=== PATIENT | male | born 1995 | race Caucasian/White ===

== ENCOUNTER 2025-03-12 15:34 | Inpatient (IN) | payer BC, SELFPAY ==
[2025-03-12] VITALS (15 sets, daily range): BP systolic 94–131; BP diastolic 64–88; PULSE 71–112; RESP 11–24; TEMP 36.1–36.6; O2SAT 93–100; BMI 29.1
--- NOTE | 2025-03-12 15:42 | RAD_ITS ---
EXAM: XR Right Foot, 2 Views CLINICAL INDICATION: LACERATION TECHNIQUE: Frontal and lateral views of the right foot. COMPARISON: No relevant prior studies available. FINDINGS: BONES/JOINTS: Probable comminuted fracture and laceration of the 1st distal phalanx. Soft tissue swelling. No dislocation. SOFT TISSUES: No radiopaque foreign body. RAD/Foot 2 Views IMPRESSION: 1. No radiopaque foreign body. 2. Probable comminuted fracture and laceration of the 1st distal phalanx. Sof t tissue swelling. Reading Location: [id number]
[2025-03-12] MEDS: Diphth,Pertuss(Acell),Tet Vac 0.5 ML Vial IM (15:45)
[2025-03-12] MEDS: Ondansetron 4 MG/2 ML Vial IV (15:50)
[2025-03-12] MEDS: Morphine 4 MG/ML Syringe IV (15:50)
--- NOTE | 2025-03-12 15:52 | ED.VIS.LOWEX ---
HPI <DIANA Nieto - Last Filed: 03/12/25 19:13> History of Present Illness Chief Complaint: Laceration Narrative Narrative: Patient presents today with a laceration to his right foot that he sustained this afternoon while mowing the lawn. He reports that he slipped and his foot went underneath the lawnmower getting caught on the blade. He was wearing tennis shoes. He is unsure of his last tetanus update. He is not on any blood thinners. He denies any other injury. PFSH <DIANA Nieto - Last Filed: 03/12/25 19:13> PFSH Medical History Bicuspid aortic valve High blood cholesterol Medical History no medical history Home Medications ?Medication ?Instructions ?Recorded ?Last Taken ?Type multivitamin (Daily Multi-Vitamin 1 tab PO DAILY supplement 03/12/25 03/12/25 History tablet) omega 7-dnv-bni-fish oil 1,200 mg 2 cap PO DAILY supplement 03/12/25 03/11/25 History (144 mg-216 mg) capsule (Fish Oil) sumatriptan succinate 50 mg tablet 50 mg PO PRN PRN migraine headache 03/12/25 Unknown History Allergy/AdvReac Type Severity Reaction Status Date / Time No Known Allergies Allergy Verified 03/12/25 15:38 Family History no significant family his Surgical History no surgical history Social History Smoking Status: Never smoker ROS <DIANA Nieto - Last Filed: 03/12/25 19:13> ROS ED Constitutional Constitutional ED: Denies chills or fever(s) Cardiovascular Cardiovascular: Denies chest pain Respiratory/Chest Respiratory/Chest: Denies dyspnea Musculoskeletal Musculoskeletal: Reports arthralgias Integumentary Reports laceration Neurologic Neurologic: Denies paresthesias EXAM <DIANA Nieto - Last Filed: 03/12/25 19:13> Physical Exam Const Vital Signs: 03/12/25 15:35 03/12/25 16:35 03/12/25 16:57 Temperature 97.9 F Temperature Source Temporal Pulse Rate 112 H 71 79 Respiratory Rate 24 H 11 L 19 H Respiratory Pattern Blood Pressure 94/64 113/84 H Blood Pressure Mean 74 93 Blood Pressure Source Blood Pressure Position Blood Pressure Location Baseline BP Pulse Ox 98 100 100 Oxygen Delivery Method Room Air Room Air Room Air 03/12/25 17:00 03/12/25 18:00 03/12/25 18:10 Temperature 97.9 F Temperature Source Pulse Rate 82 92 92 Respiratory Rate 18 14 14 Respiratory Pattern Blood Pressure 108/83 H 100/85 H 100/85 H Blood Pressure Mean 91 90 90 Blood Pressure Source Blood Pressure Position Blood Pressure Location Baseline BP Pulse Ox 100 99 99 Oxygen Delivery Method Room Air Room Air 03/12/25 20:22 03/12/25 21:00 03/12/25 21:03 Temperature 97.9 F 97 F L 97 F L Temperature Source Temporal Pulse Rate 92 101 H 112 H Respiratory Rate 14 16 16 Respiratory Pattern Normal Blood Pressure 100/85 H 117/77 117/77 Blood Pressure Mean 90 Blood Pressure Source Monitor Blood Pressure Position Semi-Fowlers Blood Pressure Location Left Arm Baseline BP 100/85 Pulse Ox 99 97 96 Oxygen Delivery Method Room Air 03/12/25 21:05 03/12/25 21:10 03/12/25 21:15 Temperature Temperature Source Pulse Rate 112 H 108 H 104 H Respiratory Rate 16 16 16 Respiratory Pattern Blood Pressure 127/72 H 126/80 H 131/85 H Blood Pressure Mean 90 95 100 Blood Pressure Source Monitor Monitor Monitor Blood Pressure Position Semi-Fowlers Semi-Fowlers Semi-Fowlers Blood Pressure Location Left Arm Left Arm Left Arm Baseline BP 100/85 100/85 100/85 Pulse Ox 94 95 93 Oxygen Delivery Method Room Air Room Air Room Air Positive well nourished, well developed and no apparent distress General Appearance ED: well developed HEENT Reports normocephalic and head/scalp atraumatic Mouth ED: Yes moist mucous membranes normal Eyes PERRL and EOMs intact bilaterally Neck full ROM and supple Chest Wall inspection of chest normal Resp normal respiratory effort and clear to auscultation bilaterally Cardio regular rate and regular rhythm Back/Spine normal ROM and normal to inspection Extremity Extremity Narrative: Large full-thickness complex laceration extending from the plantar aspect of the left big toe through the webspace between the 1st and 2nd toes. Complete flexor tendon laceration. He does have intact cap refill and sensation. Minimal active bleeding. Neuro oriented x3, CN's II-XII intact bilaterally, moves all extremities, no focal motor deficits and no sensory deficits noted Sensorium / Orientation: awake and alert Psych mental status grossly normal and thought process normal Skin no rashes or lesions noted and no wounds <Dr. Monroe Polk DO - Last Filed: 03/13/25 00:39> Physical Exam Const Vital Signs: 03/12/25 15:35 03/12/25 16:35 03/12/25 16:57 Temperature 97.9 F Temperature Source Temporal Pulse Rate 112 H 71 79 Respiratory Rate 24 H 11 L 19 H Respiratory Pattern Blood Pressure 94/64 113/84 H Blood Pressure Mean 74 93 Blood Pressure Source Blood Pressure Position Blood Pressure Location Baseline BP Pulse Ox 98 100 100 Oxygen Delivery Method Room Air Room Air Room Air 03/12/25 17:00 03/12/25 18:00 03/12/25 18:10 Temperature 97.9 F Temperature Source Pulse Rate 82 92 92 Respiratory Rate 18 14 14 Respiratory Pattern Blood Pressure 108/83 H 100/85 H 100/85 H Blood Pressure Mean 91 90 90 Blood Pressure Source Blood Pressure Position Blood Pressure Location Baseline BP Pulse Ox 100 99 99 Oxygen Delivery Method Room Air Room Air 03/12/25 20:22 03/12/25 21:00 03/12/25 21:03 Temperature 97.9 F 97 F L 97 F L Temperature Source Temporal Pulse Rate 92 101 H 112 H Respiratory Rate 14 16 16 Respiratory Pattern Normal Blood Pressure 100/85 H 117/77 117/77 Blood Pressure Mean 90 Blood Pressure Source Monitor Blood Pressure Position Semi-Fowlers Blood Pressure Location Left Arm Baseline BP 100/85 Pulse Ox 99 97 96 Oxygen Delivery Method Room Air 03/12/25 21:05 03/12/25 21:10 03/12/25 21:15 Temperature Temperature Source Pulse Rate 112 H 108 H 104 H Respiratory Rate 16 16 16 Respiratory Pattern Blood Pressure 127/72 H 126/80 H 131/85 H Blood Pressure Mean 90 95 100 Blood Pressure Source Monitor Monitor Monitor Blood Pressure Position Semi-Fowlers Semi-Fowlers Semi-Fowlers Blood Pressure Location Left Arm Left Arm Left Arm Baseline BP 100/85 100/85 100/85 Pulse Ox 94 95 93 Oxygen Delivery Method Room Air Room Air Room Air MDM <Olga Johnson PA - Last Filed: 03/12/25 19:13> MDM MDM Narrative Medical decision making narrative: Patient presenting today with extensive laceration to his right first toe after slipping while mowing the lawn and getting his foot caught in the lawnmower. He has extensive laceration to the plantar aspect of his right big toe that extends between the 1st and 2nd webspace. He appears to have a complete flexor tendon laceration. X-ray obtained and shows a comminuted fracture of the proximal and distal phalanges. He was given Ancef here as well as IV fluids, Zofran, and morphine for pain. Tetanus updated. Podiatry was consulted, they recommend surgical intervention emergently as he has a high risk of needing the toe amputated in the future. Patient is agreeable with surgery and will be taken to the OR in stable condition. Lab Data Attestation: I reviewed the patient's lab results. Labs: Laboratory Results - last 24 hr 03/12/25 15:52 WBC 9.8 RBC 4.94 Hgb 15.2 Hct 43.3 MCV 87.7 MCH 30.8 MCHC 35.1 RDW Std Deviation 39.6 RDW Coeff of Dinh 12.4 Plt Count 272 MPV 9.7 Immature Gran % (Auto) 0.200 Neut % (Auto) 40.0 L Lymph % (Auto) 50.4 H [place] % (Auto) 7.7 Eos % (Auto) 1.2 Baso % (Auto) 0.5 Absolute Neuts (auto) 3.9 Absolute Lymphs (auto) 4.95 H Nucleated RBC % 0 Sodium 139 Potassium 3.9 Chloride 101 Carbon Dioxide 19.9 L Anion Gap 18 H BUN 16 Creatinine 1.21 H Estim Creat Clear Calc 108.03 Est GFR (MDRD) Non-Af 83 BUN/Creatinine Ratio 13.6 Glucose 102 H Calcium 9.8 Radiography X-Ray: Read by ED Physician Diagnostic Testing: Clinical Impression(s) from Imaging Studies Foot X-Ray 03/12/25 15:42 IMPRESSION: 1. No radiopaque foreign body. 2. Probable comminuted fracture and laceration of the 1st distal phalanx. Soft tissue swelling. Reading Location: [facility] <Dr. Monroe Polk, DO - Last Filed: 03/13/25 00:39> [facility] Lab Data Labs: Laboratory Results - last 24 hr 03/12/25 15:52 WBC 9.8 RBC 4.94 Hgb 15.2 Hct 43.3 MCV 87.7 MCH 30.8 MCHC 35.1 RDW Std Deviation 39.6 RDW Coeff of Dinh 12.4 Plt Count 272 MPV 9.7 Immature Gran % (Auto) 0.200 Neut % (Auto) 40.0 L Lymph % (Auto) 50.4 H [place] % (Auto) 7.7 Eos % (Auto) 1.2 Baso % (Auto) 0.5 Absolute Neuts (auto) 3.9 Absolute Lymphs (auto) 4.95 H Nucleated RBC % 0 Sodium 139 Potassium 3.9 Chloride 101 Carbon Dioxide 19.9 L Anion Gap 18 H BUN 16 Creatinine 1.21 H Estim Creat Clear Calc 108.03 Est GFR (MDRD) Non-Af 83 BUN/Creatinine Ratio 13.6 Glucose 102 H Calcium 9.8 Radiography Diagnostic Testing: Clinical Impression(s) from Imaging Studies Foot X-Ray 03/12/25 15:42 IMPRESSION: 1. No radiopaque foreign body. 2. Probable comminuted fracture and laceration of the 1st distal phalanx. Soft tissue swelling. Reading Location: [id number] Treatment and Re-Evaluation Narrative: I have personally performed a face to face assessment of the patient and have reviewed the TIM Note. I performed a substantive portion of the visit including all aspects of the following. My rodriguez findings include: History: Patient presents with injury to his right foot and great toe that occurred today. Patient slipped and fell and cut his toe on a lawnmower blade. Patient states the lawnmower blade cut through his shoe and into his foot. Patient is unsure of his last tetanus. Patient denies any paresthesias or weakness. Exam: There is a large open wound over the plantar aspect of the right great toe extending into the webspace of the 1st and 2nd digits. There is mild bleeding. The condyle of the first metatarsal is visible. The phalanges are dislocated dorsally. Sensation is intact to light touch in all digits. Capillary refill was less than 2 seconds in all digits. Medical Decision Making: Differential diagnosis includes open fracture, dislocation, tendon laceration, and laceration. X-rays of the right foot will be obtained to assess for fracture and dislocation. CBC will be obtained to assess for leukocytosis and anemia. Basic metabolic profile will be obtained to assess for electrolyte abnormality and renal function. Patient was given a tetanus booster. Patient was given Ancef. Patient was given morphine and Zofran. X-rays of the right foot were obtained. There are 2 views. On my independent interpretation, there is an open fracture of the distal and proximal phalanges of the right great toe. There is also questionable fracture of the dorsal aspect of the distal portion of the first metatarsal. Case was discussed with Dr. Javier from podiatry. He will take the patient to the operating room. Patient understood and was agreeable with the plan. All questions were answered. Discharge Plan Dx/Rx/DC Orders Clinical Impression: Laceration of right foot, Traumatic dislocation of right great toe, Laceration of muscle and tendon of long flexor muscle of toe at ankle and foot level, right foot, initial encounter Disposition Disposition: Acute Care Hospital [facility] Discharge Date/Time: 03/12/25 18:15
[2025-03-12] MEDS: Cefazolin 2 GM in 0.9% Normal Saline (100mL Bag) 100 ML IV ×2 (15:56→22:29)
[2025-03-12 16:08] LABS: Absolute Lymphocyte Count 4.95 X10^3/uL (0.83-4.51); Absolute Neutrophil Count 3.9 X10^3/uL (2.0-7.7); Basophil# 0.05 X10^3/uL; Basophil% 0.5 % (0-1); Eosinophil# 0.12 X10^3/uL; Eosinophils% 1.2 % (0-5); Hematocrit 43.3 % (40-54); Hemoglobin 15.2 g/dL (13.0-16.5); Lymphocyte # 4.95 X10^3/ul (0.83-4.51); Lymphocyte % 50.4 % (19-41); Mean Corp Hgb Conc 35.1 g/dL (32-36); Mean Corpuscular Hgb 30.8 pg (27.0-32.0); Mean Corpuscular Volume 87.7 fL (80-94); Mean Platelet Vol. 9.7 fl (6.2-12.0); Monocyte# 0.76 X10^3/uL; Monocyte% 7.7 % (0-10); NRBC Flagged by Analyzer 0 % (0-5); Neutrophil # 3.93 X10^3/uL (2.7-7.7); Platelet Count 272 K/mm3 (150-450); RBC Distribution Width CV 12.4 % (11.6-14.6); RBC Distribution Width SD 39.6 fl (35.1-43.9); Red Blood Count 4.94 M/mm3 (4.6-6.2); White Blood Count 9.8 K/mm3 (4.4-11.0)
[2025-03-12 16:13] LABS: Anion Gap 18 (5-15); BUN 16 mg/dL (4-19); BUN/Creat Ratio 13.6 RATIO (10-20); Calcium,Total 9.8 mg/dL (7.6-11.0); Carbon Dioxide 19.9 mmol/L (21.0-32.0); Chloride 101 mmol/L (98-108); Creatinine, Serum 1.21 mg/dL (0.70-1.20); EST Glomerular Filtration Rate 83 (>60); Estimated Creatinine Clearance 108.03 ml/min (50-250); Glucose 102 mg/dL (70-99); Potassium 3.9 mmol/L (3.3-5.1); Sodium Level 139 mmol/L (133-145)
[2025-03-12] MEDS: Morphine 2 MG/ML Syringe IV (16:51)
[2025-03-12] MEDS: 0.9% Normal Saline (1000mL) 1,000 ML 999 ML IV (16:51)
--- NOTE | 2025-03-12 18:00 | RAD_ITS ---
PROCEDURE: FOOT 2 VIEWS 03/12/2025 REASON FOR EXAM: LACERATION REPAIR, POSSIBLE AMPUTATION TECHNIQUE: 2 fluoroscopic views of the right foot are obtained. Fluoro time of 3 minutes and 41 seconds. COMPARISON: Right foot radiograph from 03/12/2025. FINDINGS: There are postsurgical changes with surgical wires extending through the 1st digit stabilizing the comminuted 1st distal phalanx fracture. RAD/Foot 2 Views IMPRESSION: As above. Reading Location: [facility]
--- NOTE | 2025-03-12 18:05 | CON.PCM_ITS ---
Assessment & Plan Assessment/Plan (1) Laceration of right foot: QUALIFIERS: Encounter type: initial encounter Qualified Code(s): S91.311A - Laceration without foreign body, right foot, initial encounter PLAN: Patient was examined evaluated. All findings were discussed with the patient. All questions were answered to the patient satisfaction. Right foot radiograph: Review of the radiographs show evidence of a dislocated first metatarsal phalangeal joint of the right foot with evidence of some comminution appreciated to the proximal phalanx and distal phalanx. Increase in soft tissue volume without defect. No emphysema appreciated. Long discussion emergency room regarding surgical intervention at this time with repair of the lacerated tendon as well as close reduction and pinning of the dislocated first metatarsal phalangeal joint of the right foot and advancement flap closure. Patient was agreeable and we will move forward with emergency surgery today. All risk and benefits were discussed with the patient and his in great detail. It was also discussed with the patient that he is at risk for a amputation if the skin and underlying soft tissue demarcates and is not viable over the next upcoming days which she was understanding of. After surgery he will be admitted for approximately 48 hours and then discharge and will follow-up in private office for additional surgery as needed. Tetanus status was updated in the emergency room. Medicine: Consult pending Podiatry will follow patient as primary while in house and will discharge in approximately 24 to 48 hours. Please reach out to Dr. Javier with any questions or concerns. (2) Traumatic dislocation of right great toe: QUALIFIERS: Encounter type: initial encounter Qualified Code(s): S93.104A - Unspecified dislocation of right toe(s), initial encounter (3) Laceration of muscle and tendon of long flexor muscle of toe at ankle and foot level, right foot, initial encounter: HPI Consult Data Date of Consult: 03/12/25 HPI Narrative Reason for Consultation: Open laceration, right foot HPI Narrative: JAKOB MORRELL, is a 29 M who presented presented to the [facility] emergency room approximately 2 hours ago with open laceration to the right foot with dislocation of the the first metatarsal phalangeal joint. Patient sustained an injury due to coming in contact with a moving lawnmower. He was cutting his mom's grass and his foot went underneath the lawnmower getting caught on the blade. He was wearing tennis shoes. He is unsure if he slipped or fell and stated that it happened so fast, he then ended up with a laceration presenting to the emergency room for evaluation. Overall the patient is healthy. He does have high cholesterol and a bicuspid aortic valve. His tetanus status was updated during the emergency room initial consultation. He denies any additional trauma. Denies constitutional symptoms. No other pedal complaints at this time. [facility] Medical History Bicuspid aortic valve High blood cholesterol Medical History no medical history Home Medications ?Medication ?Instructions ?Recorded ?Last Taken ?Type multivitamin (Daily Multi-Vitamin 1 tab PO DAILY suppl ement 03/12/25 03/12/25 History tablet) omega 0-vni-uwr-fish oil 1,200 mg 2 cap PO DAILY suppl ement 03/12/25 03/11/25 History (144 mg-216 mg) capsule (Fish Oil) sumatriptan succinate 50 mg tablet 50 mg PO PRN PRN mi graine headache 03/12/25 Unknown History Allergy/AdvReac Type Severity Reaction Status Date / Time No Known Allergies Allergy Verified 03/12/25 15:38 Family History no significant family his Surgical History no surgical history Social History Smoking Status: Never smoker Physical Exam Narrative Vascular: DP and PT pulses are palpable to the right lower extremity. CFT is brisk to the right hallux and lesser digits. Skin temp great is warm to warm from proximal ankle to distal digits on the right lower extremity. Neurological: Light touch intact. Patient does despond painful stimuli. Dermatological: Large laceration at the plantar aspect of the first metatarsophalangeal joint with sanguinous drainage and exposed first metatarsal head. No malodor is appreciated. Evidence of mild debris is present. Musculoskeletal: Mild to moderate palpatory tenderness appreciated a full- thickness laceration to the right foot. Active and passive range of motion lesser digits pain-free. Attempted to palpate the hallux is painful. No pain with calf pressure. Const alert, oriented x3 and no apparent distress General Appearance: cooperative, comfortable and well kempt Orientation / Consciousness: awake Lab / Micro Data 03/12/25 15:52 03/12/25 15:52 Labs: Laboratory Results - last 24 hr 03/12/25 15:52: WBC 9.8, RBC 4.94, Hgb 15.2, Hct 43.3, MCV 87.7, MCH 30.8, MCHC 35.1, RDW Std Deviation 39.6, RDW Coeff of Dinh 12.4, Plt Count 272, MPV 9.7, Immature Gran % (Auto) 0.200, Neut % (Auto) 40.0 L, Lymph % (Auto) 50.4 H, [place] % (Auto) 7.7, Eos % (Auto) 1.2, Baso % (Auto) 0.5, Absolute Neuts (auto) 3.9, A bsolute Lymphs (auto) 4.95 H, Nucleated RBC % 0, Sodium 139, Potassium 3.9, Chloride 101, Carbon Dioxide 19.9 L, Anion Gap 18 H, BUN 16, Creatinine 1.21 H, Estim Creat Clear Calc 108.03, Est GFR (MDRD) Non-Af 83, BUN/Creatinine Ratio 13.6, Glucose 102 H, Calcium 9.8 Imaging Radiology Impression Foot X-Ray 03/12/25 15:42 IMPRESSION: 1. No radiopaque foreign body. 2. Probable comminuted fracture and laceration of the 1st distal phalanx. Soft tissue swelling. Reading Location: [id number]
--- NOTE | 2025-03-12 18:05 | PCM.OPRPT ---
Problems Associated Problem List Diagnoses (1) Onycholysis: (2) Fracture of distal phalanx of toe of right foot: (3) Laceration of muscle and tendon of long flexor muscle of toe at ankle and foot level, right foot, initial encounter: (4) Traumatic dislocation of right great toe: (5) Laceration of right foot: Operative Report (Standard) Operative Information Date of Procedure: 03/12/25 Pre-Operative Diagnosis: 1. Open laceration, right foot 2. Lacerated flexor tendon, right foot 3. Onycholysis, right hallux 4. Traumatic dislocation of toe, right foot 5. Distal phalanx fracture, right hallux Post-Operative Diagnosis: Same as preoperative diagnosis Surgery/Procedure Performed: Procedure #1: Nail avulsion, right hallux Procedure #2: Repair of lacerated tendon, flexor hallucis longus, right foot Procedure #3: Closed reduction and pinning of dislocated first metatarsophalangeal joint, right foot Procedure #4: Percutaneous pinning of avulsion fracture, distal phalanx, right hallux Procedure #5: Advancement flap closure, right foot well surveying engineer: No Type of Anesthesia: General and Local RN Documented Start/Stop Times: Operation Date: 03/12/25 18:15 Case Time Anesthesia Start 03/12/25 18:27 Into Room 03/12/25 18:27 Procedure Start 03/12/25 18:55 Procedure End 03/12/25 20:50 Anesthesia End 03/12/25 20:58 Out of Room 03/12/25 20:58 Into Recovery 03/12/25 21:00 Procedure Start Time: 18:55 Procedure Stop Time: 20:50 Select all DRAINS/GRAFTS/IMPLANTS that apply: None Special Medications: Per anesthesia Estimated Blood Loss: 30 mL Fluids Replaced: Per anesthesia Specimen collected: No Description of surgery: Indications For Operation: Mr. Harvey is a 29-year-old male who was admitted to [facility] for open laceration secondary to a lawnmower injury today at approximately 3:30 PM in the afternoon on 03/12/2025. When the patient sustained injury he reported to [facility] for evaluation and treatment. I was consulted for concern of lacerated tendon as well as for the large open laceration exposing the first metatarsal head on the right foot. Upon interviewing the patient there showed evidence of a large traumatic laceration with exposed first metatarsal phalangeal joint as well as debris in the wound. Due to the nature of the wound I educated the patient on washout and pinning as well as amputation. Patient would like to move forward with pinning and trying to save the toe especially because he is concerned how his walking/gait and may be disrupted if he loses the toe. He is aware that even with successful surgery of getting the toe back into anatomic position with the joint he still may lose the toe due to decreased blood flow. All risk and benefits were discussed with the patient and his in great detail. We move forward with the above procedure as discussed. Due to open laceration and dislocation of the first metatarsophalangeal joint the right foot it was deemed necessary at this time to take patient the operating room the performed above procedure to help get his toe back into anatomic position and pin it and help relieve his constant pain and save his toe. The nature of the problem, anticipated procedures, postop recovery/convalences and risk/complications include but not limited to infection, wound healing complications, digital amputation, hypertrophic scarring, numbness, tingling, chronic pain, CRPS, over and under correction, recurrence of deformity, DVT and or PE and the need for further surgery have been discussed in great detail with the patient. All questions have been answered to the patient's satisfaction. There are no guarantees given as to the outcome of the procedure. Description of Procedure: Under mild sedation, the patient was brought into the operating room and placed on the operating table in supine position. Once the patient was under general anesthesia with endotracheal tube, the right lower extremity was blocked using approximately 30 cc 0.5% Marcaine plain. No tourniquet was used for this case. Next, the right lower extremity was prepped and draped in normal aseptic manner. Next, a timeout was then undertaken verifying the correct patient, extremity, visibility of preoperative markings, availability of the equipment. Procedure #1: Nail avulsion, right hallux Next attention was directed to the right hallux that showed evidence of subungual hematoma and onycholysis. Using a rongeur the nail avulsion was performed without incident and the nail was discarded. There is evidence of healthy granular tissue to the nailbed with no significant sign of concern for infection. Procedure #2: Repair of lacerated tendon, flexor hallucis longus, right foot Next, attention was directed to the full-thickness laceration exposing the first metatarsal head. Using a rongeur excessive debridement down to bone was performed removing all devitalized tissue as well as bone fragments from the traumatic injury with the lawnmower blade. There showed evidence of some bone destruction to the head of the first metatarsal which was dorsally and removed due to viability. Bone fragments from the proximal phalanx were identified and also removed. All debris such as dirt and grass were removed without incident. After debridement was performed there showed healthy granular tissue. Next, pulse lavage and irrigation was performed using warm 3000 mL of saline. After pulse lavage tissue was granular in nature and there was no concern for infection. Next, attention was directed to the level of the long flexor laceration in the plantar vault of the right foot, inferior aspect of the dislocated hallux. Due to the traumatic injury with a lawnmower there was destruction of the origin of the flexor hallucis longus tendon. The proximal portion of the tendon had retracted but was identified and pulled to length using 2-0 Vicryl suture and secured in place approximately 1 cm from its attachment. Using 2-0 Ethibond the long flexor tendon was sutured to the soft tissue and show to have plantarflexed the attitude once secured in place. The toe was put through a range of motion and dorsiflexion and plantarflexion attitude allowed the first metatarsophalangeal joint to remain in neutral at this time. Next, the incision was flushed with cold renata normal saline. Procedure #3: Closed reduction and pinning of dislocated first metatarsophalangeal joint, right foot Next, the right hallux gently distracted and closed reduction with percutaneous pinning using x2 K wires was done without incident. After the K wires were secured across the first metatarsophalangeal joint. The position of the K wires were checked clinically as well as with mini C-arm fluoroscopy. The long ends were cut bent at 90 degrees and secured with half-inch Steri-Strips to act as a external splint. There was no range of motion ability due to the pinning of the K wires across the big toe joint at this time. Procedure #4: Percutaneous pinning of avulsion fracture, distal phalanx, right hallux Next using a small K wire percutaneous pinning of the avulsion fracture of the distal phalanx was performed using mini C arm fluoroscopy guidance in the AP and lateral view. The K wire was thrown from proximal medial to distal lateral encompassing the avulsion fracture off the medial side of the distal phalanx. The K wire once out to length was cut and bent at 90 degrees and secured with the 2 additional K wires from the pinning of the first metatarsophalangeal joint. Procedure #5: Advancement flap closure, right foot Next, attention was directed to the laceration flap using some undermining of the proximal and distal tissue this allowed for more advancement flap type closure. The deep layer was reapproximated closed with 3-0 Vicryl in buried suture technique. The skin was reapproximated dorsal and plantarly and advanced closed, secured in place with 4-0 nylon in simple interrupted suture technique. The right foot was wiped clean and patted dry. There is evidence of capillary refill time less than 3 seconds to the great toe. There was evidence of some delayed cap the refill time to the most plantar distal flap of the hallux. All incisions were dressed with Betadine soaked Adaptic, dry sterile dressing and a very light posterior Wyatt splint was applied to the right lower extremity at 90 degrees. The patient tolerated the procedure and anesthesia well and apparent satisfactory condition and was transported to the PACU for further monitoring prior to admission for observation for postoperative care and flap integrity for the next 24 to 48 hours. The patient will be placed on IV antibiotics Ancef and Zosyn for the next 48 hours. Vital signs stable and vascular status intact to all digits bilateral. Post Operative Plan: Weightbearing: Nonweightbearing to the right lower extremity with assistive crutches. Full weightbearing left lower extremity. Antibiotics: IV antibiotics, Ancef and Zosyn DVT Prophylaxis: 325 mg aspirin twice daily Sanderson: None Dressing: Betadine soaked Adaptic dry sterile dressing light Wyatt posterior splint, right lower extremity X-Rays: Post-operative films taken on the operating room. Pain Medication: Percocet 5/325, Dilaudid 0.5 mg, Tylenol Follow-up: Patient will be admitted for 48-hour observation after surgery secondary to lawnmower injury. Hospitalist consulted for medical management. Physical therapy consulted for routine care. Patient was taken to the operating room and had the above procedure performed. I feel that the procedure was successful and the patient has a good outcome for keeping his right hallux. However it was discussed with the patient and his in the emergency room that it is approximately a 50-50 chance that he may need to move forward with additional surgery if the vascular status of the toe is compromised due to the injury which the patient and his are very understanding. Surgical Findings: 1. Evidence of of debris that was in the open laceration secondary to a lawnmower injury was all removed. 2. Ability to reattach the long flexor tendon to the proximity of insertion. 3. Successful advancement flap closure. 4. Evidence of capillary refill time less than 3 seconds throughout the right hallux Complications Complications: No Admit VTE Documentation VTE Present on Admission: No VTE Mechan Device Prophylaxis: SCD's VTE Pharm Prophylaxis ordered?: Yes
--- NOTE | 2025-03-12 20:21 | PCM.PRE.AN2 ---
ASA Classification* ASA Classification ASA Classification: 2 and E Assessment & Plan Anesthesia* Anesthesia Assessment Anesthesia Assessment: Discussed sedation and/or anesthesia options, risks, benefits, and alternatives with patient/parents/legal guardian/POA. Questions invited. The patient/parents/legal guardian/POA seems to understand and agrees to proceed with anesthesia plan. Reviewed the physical assessment, medical history, allergy history and patient home medications list prior to surgery/procedure/anesthetic and documented any changes. Performed airway and anesthesia risk assessments. Anesthesia Type Anesthesia Type: General (glidescope/rsi) Anesthesia Focused Assessment* Temperature: 97.9 F Pulse Rate: 92 Blood Pressure: 100/85 Respiratory Rate: 14 Pulse Ox: 99 Airway Assessment Mouth opens: >3 cm Mallampati Score: II Focused Labs Anesthesia Preop lab: CBC WBC 9.8 K/mm3 (4.4-11.0) 03/12/25 15:52 03/12/25 RBC 4.94 M/mm3 (4.6-6.2) 03/12/25 15:52 03/12/25 Hgb 15.2 g/dL (13.0-16.5) 03/12/25 15:52 03/12/25 Hct 43.3 % (40-54) 03/12/25 15:52 03/12/25 Plt Count 272 K/mm3 (150-450) 03/12/25 15:52 03/12/25 CHEMISTRY Potassium 3.9 mmol/L (3.3-5.1) 03/12/25 15:52 03/12/25 Sodium 139 mmol/L (133-145) 03/12/25 15:52 03/12/25 BUN 16 mg/dL (4-19) 03/12/25 15:52 03/12/25 Creatinine 1.21 mg/dL (0.70-1.20) H 03/12/25 15:52 03/12/25 Glucose 102 mg/dL (70-99) H 03/12/25 15:52 03/12/25 COAG Pre-Assessment Diagnosis/Proposed Procedure Planned Operative Procedure(s): Repair of laceraTION OF RIGHT GREAT TOE Anesthesia History Anesthesia History - instructor hairspring: Anesthesia History - instructor hairspring Hx Hospitalization Any Problems With Anesthesia Cholinesterase deficiency You/Your Family Experience fever (hyperthermia) with Relationship Recent Exposure to Contagious Disease Does patient have nerve stimulator Patient instructed to have device shut off --Does patient have Pacemaker or ICD? When Was Last Pacemaker Check QUESTION #4 FULL TEXT: You/Your Family Experience fever (hyperthermia) with Anesthesia Last Oral Intake Last Oral intake: Last Oral Intake NPO since Meds taken in AM with sips of water? Meds patient instructed to take am of surgery PONV PONV - instructor hairspring: PONV - instructor hairspring Female HX of Motion Sickness HX of N/V After Surgery Non-Smoker Duration of Surgery greater than 60 minutes Number of Risk Factors PONV Score Height & Weight Height & Weight: Anesthesia: Height & Weight Height 6 ft 03/12/25 15:35 Weight: 97.5 kg 03/12/25 15:38 Body Mass Index (BMI) 29.1 03/12/25 15:38 Respiratory Assessment Respiratory Assessment - instructor hairspring: Respiratory Tract Infection Hx - instructor hairspring Hx Respiratory Tract Infection STOP Sleep Apnea STOP Sleep Apnea - instructor hairspring: STOP Sleep Apnea - instructor hairspring Hx Hypertension No 08/01/15 14:23 Hx Sleep Apnea CPAP BIPAP Do you snore loudly (louder than talking or can be heard Do you often feel tired/ fatigued/ sleepy during daytime? Has anyone observed you stop breathing during sleep? STOP Results QUESTION #5 FULL TEXT : Do you snore loudly (louder than talking or can be heard through closed doors)? 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 Specify any problems Hx of Preganancy in last 3 Months Nurse Filling Out Transfusion & Questions: Date: Time: Patient unable to answer at this time (ie. confused, unrespo /Reproduction History /Reproductive History - instructor hairspring: /Reproductive Hx- instructor hairspring Hx Now Gestational Age (in weeks): EDC: Hx Hx Para Hx Section SAB PFSH Medical History Bicuspid aortic valve High blood cholesterol Medical History no medical history Home Medications ?Medication ?Instructions ?Recorded ?Last Taken ?Type multivitamin (Daily Multi-Vitamin 1 tab PO DAILY 03/12/25 03/12/25 History tablet) omega 0-btp-ihl-fish oil 1,200 mg 2 cap PO DAILY 03/12/25 03/11/25 History (144 mg-216 mg) capsule (Fish Oil) sumatriptan succinate 50 mg tablet 50 mg PO PRN PRN migraine headache 03/12/25 Unknown History Allergy/AdvReac Type Severity Reaction Status Date / Time No Known Allergies Allergy Verified 03/12/25 15:38 Family History no significant family his Surgical History no surgical history Social History Smoking Status: Never smoker Review of Systems (Anesthesia) ROS Narrative System reviewed and no additional complaints, except as documented.
[2025-03-12] MEDS: Bupivacaine Mpf 0.5% 30 ML VIAL (20:36)
--- NOTE | 2025-03-12 21:02 | PCM.POST.ANE ---
Anesthesia: Postop Eval I Current Vital Signs Temperature: 97 F Pulse Rate: 112 Blood Pressure: 117/77 Respiratory Rate: 16 Pulse Ox: 96 Assessment Airway patent: Yes Spontaneous unlabored respirations: Yes nausea: No Vomiting: No Anesthesia Complication: No Fluid Hydration Crystalloid volume administer (ml): 1,500 Total IV fluid infused: 1,500 Progress Note Anesthesia document: Postop Eval 1 completed: Yes
--- NOTE | 2025-03-12 21:03 | PCM.POSTANE2 ---
Anesthesia Postop Eval I Sum Postop Eval Completion status Anesthesia document: Postop Eval 1 completed: Yes Anesthesia Postop Eval I Summary Anesthesia Postop Eval I Summary: Anesthesia Postop Eval I: Assessment Summary Airway patent Yes 03/12/25 21:03 Spontaneous unlabored Yes 03/12/25 21:03 respirations Mental status nausea No 03/12/25 21:03 Vomiting No 03/12/25 21:03 Anesthesia Postop Eval I: Fluid Summary Crystalloid volume administer 1,500 03/12/25 21:03 (ml) Colloids volume administered ( ml) Blood Product volume administered (ml) Total IV fluid infused 1,500 03/12/25 21:03 Anesthesia Postop Eval I: Summary Notes Anesthesia Complication No 03/12/25 21:03 Anesthesia Complication Comment: Post-operative progress note Anesthesia: Postop Eval II Evaluation Mental status: Awake Pain Level: 0 nausea: No Vomiting: No
[2025-03-12] MEDS: 0.9% Saline Lock 10 ML Syringe IV (22:28)
[2025-03-12] MEDS: proCHLORPERazine 10 MG/2 ML Vial 5 MG IV (22:28)
[2025-03-12] MEDS: HYDROmorphone 0.5 MG/0.5 ML SYRINGE IV (22:29)
[2025-03-12] MEDS: 0.9% Normal Saline (250mL Bag) 250 ML 15 ML IV (22:34)
--- NOTE | 2025-03-12 22:40 | PN.HOSP_ITS ---
Reason for Visit Reason for Visit: Diagnoses Onycholysis (03/12/25) Laceration without foreign body, right foot, initial encounter (03/12/25) Unspecified fracture of right toe(s), initial encounter for closed fracture (03/12/25) Unspecified dislocation of right toe(s), initial encounter (03/12/25) Laceration of muscle and tendon of long flexor muscle of toe at ankle and foot level, right foot, initial encounter (03/12/25) Subjective Subjective 29-year-old male with past medical history of bicuspid aortic valve, high blood cholesterol and migraine headaches presented with fracture of distal phalanx of toe of the right foot that he sustained while mowing his lawn, he slipped and his foot went underneath the lawnmower getting caught on the plate,, he was wearing tennis shoes at the time. He underwent surgery today and was seen postoperatively. There is some pain over the foot, had sore throat following extubation which is better now. After recovery from anesthesia had some nausea but has improved with Zofran. Objective Data Objective Data Vital Signs: Vital Signs Temp Pulse Resp BP Pulse Ox O2 Del Method 97.7 F L 95 16 108/70 98 Room Air 03/12/25 22:12 03/12/25 22:12 03/12/25 22:12 03/12/25 22:12 03/12/25 22:12 03/12/25 22:12 Oxygen Delivery Method Room Air Weight: 214 lb 15.211 oz Body Mass Index (BMI) 29.1 Intake & Output: Intake and Output for Last 24 Hours 03/10/25 03/11/25 03/12/25 23:59 23:59 23:59 Intake Total 1000 / 1000 Balance 1000 / 1000 Lab / Micro Data Attestation: I reviewed the patient's lab results. 03/12/25 15:52 03/12/25 15:52 Labs: Laboratory Results - last 24 hr 03/12/25 15:52: WBC 9.8, RBC 4.94, Hgb 15.2, Hct 43.3, MCV 87.7, MCH 30.8, MCHC 35.1, RDW Std Deviation 39.6, RDW Coeff of Dinh 12.4, Plt Count 272, MPV 9.7, Immature Gran % (Auto) 0.200, Neut % (Auto) 40.0 L, Lymph % (Auto) 50.4 H, Toole % (Auto) 7.7, Eos % (Auto) 1.2, Baso % (Auto) 0.5, Absolute Neuts (auto) 3.9, A bsolute Lymphs (auto) 4.95 H, Nucleated RBC % 0, Sodium 139, Potassium 3.9, Chloride 101, Carbon Dioxide 19.9 L, Anion Gap 18 H, BUN 16, Creatinine 1.21 H, Estim Creat Clear Calc 108.03, Est GFR (MDRD) Non-Af 83, BUN/Creatinine Ratio 13.6, Glucose 102 H, Calcium 9.8 Radiography Diagnostic Testing: Radiology Impression Foot X-Ray 03/12/25 15:42 IMPRESSION: 1. No radiopaque foreign body. 2. Probable comminuted fracture and laceration of the 1st distal phalanx. Soft tissue swelling. Reading Location: [facility] Physical Exam Const alert and oriented x3 HEENT Mouth: oral and palatal mucosa normal Eyes PERRL Neck no lymphadenopathy Resp normal respiratory effort and no retractions Cardio regular rate and regular rhythm Cardio Narrative: Ejection systolic murmur present GI normal to inspection, nondistended, normoactive bowel sounds Extremity normal to inspection Extremity Narrative: Could not examine the right foot as it was dressed after surgery Neuro oriented x3, CN's II-XII intact bilaterally, moves all extremities and no focal motor deficits Psych affect normal Assessment & Plan Assessment/Plan (1) Laceration of muscle and tendon of long flexor muscle of toe at ankle and foot level, right foot, initial encounter: PLAN: Plan 29-year-old male with past medical history of bicuspid aortic valve, high blood cholesterol and migraine headaches presented with fracture of distal phalanx of toe of the right foot that he sustained while mowing his lawn, he slipped and his foot went underneath the lawnmower getting caught on the plate,, he was wearing tennis shoes at the time. For his laceration he underwent nail avulsion of the right hallux, repair of the lacerated tendon, flexor hallucis longus, close reduction and pinning of the dislocated first metatarsophalangeal joint, percutaneous pinning of the avulsion fracture, advancement flap closure. Postprocedure he started on cefazolin and Zosyn for prophylaxis. His WBCs from 9.8, hemoglobin 15.2, platelet count 272, sodium 139, potassium 3.9, BUN 16, creatinine 1.2, glucose 102. # Right foot laceration - Underwent surgery today - Continue Zosyn plus cefazolin to prevent any surgical site infection - If white count stable can transition to p.o. antibiotics tomorrow #Bicuspid aortic valve - Not on medications-blood pressure stable - Continue to monitor #Migraine - Only takes as needed medications - No concerns at this time - Continue to monitor #Dyslipidemia - Outpatient follow-up with primary care #DVT - Moderate risk - Start enoxaparin 40 mg subcu after considered okay for prophylactic anticoagulation by surgery team
[2025-03-12] MEDS: BENZOCAINE/MENTHOL 1 LOZENGE MUCOUS MEM (22:43)
[2025-03-12] MEDS: Piperacil/Tazobactam 3.375 GM in 0.9% Normal Saline (50mL MB+) 50 ML IV (23:36)
[2025-03-12] MEDS: Acetaminophen 325 MG Tablet 650 MG PO (23:52)
[2025-03-12] MEDS: oxyCODONE 5 MG Tablet PO (23:52)
[2025-03-13 02:18] VITALS: BP 112/51; PULSE 85; RESP 16; TEMP 36.4; O2SAT 98
[2025-03-13] MEDS: Cefazolin 2 GM in 0.9% Normal Saline (100mL Bag) 100 ML IV ×3 (05:19→21:07)
[2025-03-13 05:26] VITALS: BP 116/59; PULSE 97; RESP 16; TEMP 36.8; O2SAT 98
[2025-03-13] MEDS: oxyCODONE 5 MG Tablet PO ×3 (05:32→18:25)
[2025-03-13] MEDS: Acetaminophen 325 MG Tablet 650 MG PO ×3 (05:33→18:27)
[2025-03-13] MEDS: Piperacil/Tazobactam 3.375 GM in 0.9% Normal Saline (50mL MB+) 50 ML IV ×3 (06:38→22:18)
[2025-03-13 08:44] VITALS: BP 106/59; PULSE 98; RESP 18; TEMP 37.1; O2SAT 95
[2025-03-13] MEDS: Aspirin 325 MG Tablet PO ×2 (08:52→16:40)
[2025-03-13] MEDS: HYDROmorphone 0.5 MG/0.5 ML SYRINGE IV ×3 (10:54→20:58)
--- NOTE | 2025-03-13 11:52 | PCM.PN.SRG ---
Subjective Subjective Mr. Harvey is a 29-year-old male seen at bedside today for dressing change to right lower extremity. Patient is status post nail avulsion, repair of lacerated tendon, flexor hallucis longus, close reduction and pinning of dislocated first metatarsophalangeal joint, percutaneous pinning of avulsion fracture and advancement flap closure to the right foot. DOS: 03/12/2025. Patient doing well. He rates his pain as 5 out of 10 on the pain scale. His pain is controlled with prescribed pain medication. No acute events overnight. His nausea has improved. He denies any additional constitutional symptoms. No other pedal complaints at this time. Objective Data Objective Data Vital Signs: Vital Signs Temp Pulse Resp BP Pulse Ox O2 Del Method 98.8 F 98 18 106/59 L 95 Room Air 03/13/25 08:44 03/13/25 08:44 03/13/25 08:44 03/13/25 08:44 03/13/25 08:44 03/13/25 08:44 Oxygen Delivery Method Room Air Weight: 97.5 kg Body Mass Index (BMI) 29.1 Intake & Output: Intake and Output for Last 24 Hours 03/11/25 03/12/25 03/13/25 23:59 23:59 23:59 Intake Total 1115.75 / 1115.75 235.75 / 235.75 Output Total 300 / 300 300 / 300 Balance 815.75 / 815.75 -64.25 / -64.25 Lab / Micro Data 03/12/25 15:52 03/12/25 15:52 Labs: Laboratory Results - last 24 hr 03/12/25 15:52: WBC 9.8, RBC 4.94, Hgb 15.2, Hct 43.3, MCV 87.7, MCH 30.8, MCHC 35.1, RDW Std Deviation 39.6, RDW Coeff of Dinh 12.4, Plt Count 272, MPV 9.7, Immature Gran % (Auto) 0.200, Neut % (Auto) 40.0 L, Lymph % (Auto) 50.4 H, [place] % (Auto) 7.7, Eos % (Auto) 1.2, Baso % (Auto) 0.5, Absolute Neuts (auto) 3.9, Absolute Lymphs (auto) 4.95 H, Nucleated RBC % 0, Sodium 139, Potassium 3.9, Chloride 101, Carbon Dioxide 19.9 L, Anion Gap 18 H, BUN 16, Creatinine 1.21 H, Estim Creat Clear Calc 108.03, Est GFR (MDRD) Non-Af 83, BUN/Creatinine Ratio 13.6, Glucose 102 H, Calcium 9.8 Radiography Diagnostic Testing: Radiology Impression Foot X-Ray 03/12/25 15:42 IMPRESSION: 1. No radiopaque foreign body. 2. Probable comminuted fracture and laceration of the 1st distal phalanx. Soft tissue swelling. Reading Location: [facility] Foot X-Ray 03/12/25 18:00 IMPRESSION: As above. [facility] Physical Exam Narrative Vascular: DP PT pulses are palpable to the right lower extremity. CFT is brisk to the dorsal, medial, lateral and proximal plantar hallux and first metatarsal phalangeal joint. There is delayed capillary refill time to the plantar aspect of the right hallux with mild duskiness appreciated. Skin temperature is warm to warm from proximal ankle to distal digits. Neurological: Light touch is intact. Epicritic sensation is intact. Patient does respond to painful stimuli. Dermatological: All skin is well coapted with suture to the right hallux advancement flap area. Evidence of granular sanguinous draining tissue to the nailbed of the right hallux. No malodor. Negative probe to bone. Evidence of duskiness appreciated to the plantar aspect of the right hallux at the size of a nickel, the remaining surrounding tissue is erythematous and blanchable. No sign of infection. Musculoskeletal:. Mild pain on palpation to the incisions to the right hallux. Mild pain palpation to the nailbed of the right hallux. No pain with calf pressure. Const oriented x3 and no apparent distress Assessment & Plan Assessment/Plan (1) Laceration of right foot: QUALIFIERS: Encounter type: initial encounter Qualified Code(s): S91.311A - Laceration without foreign body, right foot, initial encounter PLAN: Patient was examined evaluated. All findings were discussed with the patient. All questions were answered the patient expected. Overall, the patient is doing well after surgery to the right lower extremity. DOS: 03/12/2025. Will continue pain medication as scheduled. The right lower extremity dressing was removed without incident. There was evidence of capillary refill time less than 3 seconds to the dorsal, medial and lateral right hallux. There is evidence of delayed capillary refill time to the plantar aspect of the hallux and size of a nickel. This is an area that will be concerning for tissue necrosis. The right lower extremity exposed pins and suture were dressed with Betadine soaked Adaptic, dry sterile dressing and a double layer Wyatt posterior splint was applied to the right lower extremity. Patient will continue to elevate 4 inches above his heart and apply ice to the posterior aspect of the right knee and anterior ankle as needed. We will continue the IV antibiotics Ancef and Zosyn as scheduled for the next 24 hours. Medicine: On board, medical management Plan will be to discharge the patient Friday morning versus afternoon. All prescriptions will be sent to the patient's pharmacy prior to discharge. Podiatry will continue to follow with primary. No plan for additional surgery at this time and the patient will follow-up as an outpatient in office for 2 times per week dressing changes and local wound care as needed. Please reach out to Dr. Javier with any questions or concerns. (2) Traumatic dislocation of right great toe: QUALIFIERS: Encounter type: initial encounter Qualified Code(s): S93.104A - Unspecified dislocation of right toe(s), initial encounter (3) Laceration of muscle and tendon of long flexor muscle of toe at ankle and foot level, right foot, initial encounter: (4) Onycholysis: (5) Fracture of distal phalanx of toe of right foot:
[2025-03-13 12:41] LABS: Absolute Lymphocyte Count 2.91 X10^3/uL (0.83-4.51); Absolute Neutrophil Count 7.2 X10^3/uL (2.0-7.7); Basophil# 0.03 X10^3/uL; Basophil% 0.3 % (0-1); Eosinophil# 0.05 X10^3/uL; Eosinophils% 0.4 % (0-5); Hematocrit 38.1 % (40-54); Lymphocyte # 2.91 X10^3/ul (0.83-4.51); Lymphocyte % 25.7 % (19-41); Mean Corp Hgb Conc 34.1 g/dL (32-36); Mean Corpuscular Hgb 30.9 pg (27.0-32.0); Mean Corpuscular Volume 90.5 fL (80-94); Mean Platelet Vol. 9.8 fl (6.2-12.0); Monocyte# 1.08 X10^3/uL; Monocyte% 9.5 % (0-10); NRBC Flagged by Analyzer 0 % (0-5); Neutrophil # 7.22 X10^3/uL (2.7-7.7); Neutrophil % 63.7 % (47-70); Platelet Count 219 K/mm3 (150-450); RBC Distribution Width SD 42.3 fl (35.1-43.9); Red Blood Count 4.21 M/mm3 (4.6-6.2); White Blood Count 11.3 K/mm3 (4.4-11.0)
[2025-03-13 12:52] VITALS: O2SAT 94
[2025-03-13 13:02] LABS: Anion Gap 11 (5-15); BUN 12 mg/dL (4-19); BUN/Creat Ratio 9.8 RATIO (10-20); Calcium,Total 8.6 mg/dL (7.6-11.0); Chloride 105 mmol/L (98-108); Creatinine, Serum 1.23 mg/dL (0.70-1.20); EST Glomerular Filtration Rate 81 (>60); Estimated Creatinine Clearance 106.27 ml/min (50-250); Glucose 97 mg/dL (70-99); Potassium 4.2 mmol/L (3.3-5.1); Sodium Level 141 mmol/L (133-145)
[2025-03-13 14:13] VITALS: BP 109/69; PULSE 91; RESP 18; TEMP 36.9; O2SAT 95
[2025-03-13] MEDS: Cholecalciferol (Vit D3) 125 MCG CAPSULE (5,000 UNITS) PO (14:19)
[2025-03-13] MEDS: 0.9% Saline Lock 10 ML Syringe IV (16:44)
[2025-03-13 20:57] VITALS: BP 119/79; PULSE 88; RESP 14; TEMP 36.8; O2SAT 98
[2025-03-14] MEDS: oxyCODONE 5 MG Tablet PO ×4 (00:31→20:28)
[2025-03-14] MEDS: Acetaminophen 325 MG Tablet 650 MG PO ×4 (00:31→21:11)
[2025-03-14 01:55] VITALS: BP 110/73; PULSE 92; RESP 16; TEMP 37.1; O2SAT 98
[2025-03-14] MEDS: HYDROmorphone 0.5 MG/0.5 ML SYRINGE IV ×3 (04:28→18:06)
[2025-03-14] MEDS: Cefazolin 2 GM in 0.9% Normal Saline (100mL Bag) 100 ML IV ×3 (04:28→21:06)
[2025-03-14 05:14] LABS: Absolute Lymphocyte Count 2.62 X10^3/uL (0.83-4.51); Absolute Neutrophil Count 5.6 X10^3/uL (2.0-7.7); Basophil# 0.03 X10^3/uL; Basophil% 0.3 % (0-1); Eosinophil# 0.15 X10^3/uL; Eosinophils% 1.6 % (0-5); Hemoglobin 12.6 g/dL (13.0-16.5); Lymphocyte # 2.62 X10^3/ul (0.83-4.51); Lymphocyte % 28.7 % (19-41); Mean Corp Hgb Conc 33.2 g/dL (32-36); Mean Corpuscular Hgb 30.5 pg (27.0-32.0); Mean Platelet Vol. 9.9 fl (6.2-12.0); Monocyte# 0.75 X10^3/uL; Monocyte% 8.2 % (0-10); NRBC Flagged by Analyzer 0 % (0-5); Neutrophil # 5.57 X10^3/uL (2.7-7.7); Platelet Count 193 K/mm3 (150-450); RBC Distribution Width CV 12.9 % (11.6-14.6); RBC Distribution Width SD 43.2 fl (35.1-43.9); Red Blood Count 4.13 M/mm3 (4.6-6.2); White Blood Count 9.1 K/mm3 (4.4-11.0)
[2025-03-14 05:37] LABS: Anion Gap 11 (5-15); BUN 10 mg/dL (4-19); BUN/Creat Ratio 9.2 RATIO (10-20); Calcium,Total 8.8 mg/dL (7.6-11.0); Carbon Dioxide 23.4 mmol/L (21.0-32.0); Chloride 104 mmol/L (98-108); Creatinine, Serum 1.09 mg/dL (0.70-1.20); EST Glomerular Filtration Rate 94 (>60); Estimated Creatinine Clearance 119.92 ml/min (50-250); Glucose 101 mg/dL (70-99); Potassium 4.3 mmol/L (3.3-5.1); Sodium Level 138 mmol/L (133-145)
[2025-03-14] MEDS: Piperacil/Tazobactam 3.375 GM in 0.9% Normal Saline (50mL MB+) 50 ML IV ×3 (05:49→22:02)
[2025-03-14 09:27] VITALS: BP 116/82; PULSE 76; RESP 16; TEMP 36.8; O2SAT 98
[2025-03-14] MEDS: Cholecalciferol (Vit D3) 125 MCG CAPSULE (5,000 UNITS) PO (09:31)
[2025-03-14] MEDS: Ascorbic Acid 500 MG Tablet 1000 MG PO (09:31)
[2025-03-14] MEDS: Aspirin 325 MG Tablet PO ×2 (09:31→16:15)
[2025-03-14] MEDS: Polyethylene Glycol 3350 17 GM PACKET PO (10:54)
[2025-03-14] MEDS: 0.9% Saline Lock 10 ML Syringe IV ×3 (11:45→20:28)
--- NOTE | 2025-03-14 13:06 | PCM.PN.SRG ---
Subjective Subjective Mr. Wright is a 29-year-old male seen at bedside today for posterior splint/dressing changes to right lower extremity. He is status post nail avulsion, repair of lacerated tendon, flexor hallucis longus, close reduction and pinning of dislocated first metatarsophalangeal joint, percutaneous pinning of avulsion fracture and advancement flap closure to the right foot. DOS: 03/12/2025. Patient states that his pain is improving. He is using prescribed pain medication as scheduled. He rates his pain as 4 out of 10 on the pain scale. He is continue rest ice and elevate his left lower extremity. Denies any new onset of trauma. Denies constitutional symptoms. No other pedal complaints at this time. Objective Data Objective Data Vital Signs: Vital Signs Temp Pulse Resp BP Pulse Ox O2 Del Method 98.3 F 76 16 116/82 H 98 Room Air 03/14/25 09:27 03/14/25 09:27 03/14/25 09:27 03/14/25 09:27 03/14/25 09:27 03/14/25 09:27 Oxygen Delivery Method Room Air Weight: 97.5 kg Body Mass Index (BMI) 29.1 Intake & Output: Intake and Output for Last 24 Hours 03/12/25 03/13/25 03/14/25 23:59 23:59 23:59 Intake Total 1115.75 / 1115.75 1444.25 / 1794.25 810 / 810 Output Total 300 / 300 900 / 1500 1974 Balance 815.75 / 815.75 544.25 / 294.25 -1165 / -1165 Lab / Micro Data 03/14/25 04:25 03/14/25 04:25 Labs: Laboratory Results - last 24 hr 03/14/25 04:25: WBC 9.1, RBC 4.13 L, Hgb 12.6 L, Hct 38.0 L, MCV 92.0, MCH 30.5, MCHC 33.2, RDW Std Deviation 43.2, RDW Coeff of Dinh 12.9, Plt Count 193, MPV 9.9, Immature Gran % (Auto) 0.200, Neut % (Auto) 61.0, Lymph % (Auto) 28.7, [place] % (Auto) 8.2, Eos % (Auto) 1.6, Baso % (Auto) 0.3, Absolute Neuts (auto) 5.6, Absolute Lymphs (auto) 2.62, Nucleated RBC % 0, Sodium 138, Potassium 4.3, Chloride 104, Carbon Dioxide 23.4, Anion Gap 11, BUN 10, Creatinine 1.09, Estim Creat Clear Calc 119.92, Est GFR (MDRD) Non-Af 94, BUN/Creatinine Ratio 9.2 L, Glucose 101 H, Calcium 8.8 Physical Exam Narrative Vascular: DP and PT pulses are palpable to left lower extremity. CFT is brisk to the right foot and right hallux. There is evidence of delayed CFT to the plantar flap of the right hallux. Nonpitting edema appreciated to the right foot. Evidence of ecchymosis appreciated to the right foot. Skin temperature great is warm to warm from proximal ankles to distal digit to right lower extremity. Neurological: Light touch is intact. Patient does respond to painful stimuli. Dermatological: All skin is well coapted with suture to the right hallux via advancement flap. There is evidence of ecchymosis to the hallux and the right foot. Slight duskiness appreciated to the plantar flap of the hallux right foot. Sanguinous drainage is appreciated out of the nail bed with a granular nail bed noted. No sign of infection. Musculoskeletal: Muscle strength was deferred. Mild pain on palpation to the incision on the right hallux and right foot. No pain with calf compression. Assessment & Plan Assessment/Plan (1) Laceration of right foot: QUALIFIERS: Encounter type: initial encounter Qualified Code(s): S91.311A - Laceration without foreign body, right foot, initial encounter PLAN: Patient was examined evaluated. All fines were discussed with the patient. All questions were answered to the patient satisfaction. Patient doing well after his emergent right foot surgery. DOS: 03/12/2025. The right lower extremity dressing was removed without incident. There is evidence of capillary fill time to majority of the hallux and right foot but with evidence of delayed capillary refill time to the plantar flap of the right hallux which is expected. Educated the patient and his on healing potential and are outcome is favorable at this time. Pin care was done with alcohol wipes and the right foot incisions were dressed with Betadine soaked Adaptic dry sterile dressing and a Wyatt posterior splint was donned to the right foot. Educated the patient on postoperative plan with nonweightbearing with assistive crutches and/or knee scooter to the right lower extremity. He will be full weightbearing to left lower extremity. Patient will be discharged on pain medication, Percocet 5/325, cyclobenzaprine 10 mg 3 times daily, oral antibiotics Keflex 500 mg 3 times daily and Cipro 750 mg twice daily for 2 weeks. All medications will be sent to the patient's pharmacy. Medicine: On board, medical management Plan will be to discharge the patient tomorrow morning to his home we will continue his postoperative care. Please reach out to Dr. Javier for any question or concerns. (2) Traumatic dislocation of right great toe: QUALIFIERS: Encounter type: initial encounter Qualified Code(s): S93.104A - Unspecified dislocation of right toe(s), initial encounter (3) Laceration of muscle and tendon of long flexor muscle of toe at ankle and foot level, right foot, initial encounter: (4) Onycholysis: (5) Fracture of distal phalanx of toe of right foot:
[2025-03-14 14:10] LABS: Hemoglobin A1c 5.4 % (<=5.6)
--- NOTE | 2025-03-14 14:18 | CASEMGMT ---
Addendum entered by Kisha Morgan 03/14/25 15:25: Received message back from Dr. Javier, PT was for in hospital only for gait training. Original Note: KANU SAHU Assessment: Face to Face with pt for initial transition planning/care coordination assessment. KANU SAHU introduced self and role at [facility], pt voices understanding and consents to assessment. Pt is A&O x4 and answers all questions appropriately at this time. Pt sitting up in chair in no distress with mother at bedside. Pt mother at bedside. Pt agreeable to assessment with mother present. Care providers, pharmacy, and demographics verified/updated. Admitting Dx: laceration R foot Strata Score: 1 PCP:Pratik Specialists:Denies Preferred Pharmacy:[facility] Insurance: [place] Prescription Benefit: yes LNOK: Court Harvey, ; Corin Macdonald, mother Living Arrangements: Pt lives with and 1 week old in a single story home with 1 step to enter. Pt reports prior to hospitalization, he was I in ADL/IADLs. Transportation: Pt drives self and denies concerns with transportation. Pt will transport pt until he can drive again. DME:Pt has ordered a shower bench and knee scooter for pt. Pt declines need for walker. HHC/SNF: Denies hx of Pt states no concerns with going home at time of dc. Pt plans to go to 's office twice a week for dressing changes. Noted PT eval stated outpt PT, message to Dr. Javier to clarify this. Pt states no further concerns/needs. CM to follow. Advised pt to ask CM if any further questions/concerns/needs arise, voices understanding. Pt Goal: Home Plan: Home Jessy BOBBY CM
[2025-03-14 14:48] VITALS: BP 113/74; PULSE 72; RESP 16; TEMP 36.7; O2SAT 97
--- NOTE | 2025-03-14 14:59 | CHAPLAIN ---
Type of Pastoral Visit _x__ Initial Visit ___ Follow-up Visit ___ On-call Visit ___ General Patient Visit ___ Spiritual Assessment ___ Family Conference ___ Bereavement ___ Rapid Response ___ Code Blue ___ Other (describe below) Pastoral Care Referral From _x__ Patient ___ Family ___ Nurse ___ Physician ___ Bottle Blower ___ Sas Sql Developer ___ Other (describe below) Sacrament/Intervention _x__ Active listening ___ Anointing ___ Presybeterian ___ Bereavement ___ Communion ___ Zabrina exploration ___ ___ Life review ___ Prayer ___ Reconciliation ___ Sacrament of Sick ___ Supportive presence ___ Wedding ___ Other (describe below) Pastoral Comments this was a brief visit as patient says that he is doing pretty well and that people come in and out all the time; pt's mother had arrived, PT and OT were coming to check on patient
[2025-03-14 20:00] VITALS: BP 117/77; PULSE 93; RESP 16; TEMP 37.1; O2SAT 97
[2025-03-14] MEDS: 0.9% Normal Saline (250mL Bag) 250 ML 15 ML IV (22:02)
[2025-03-15 02:00] VITALS: BP 113/76; PULSE 83; RESP 16; TEMP 37.2; O2SAT 97
[2025-03-15] MEDS: Acetaminophen 325 MG Tablet 650 MG PO (02:26)
[2025-03-15] MEDS: oxyCODONE 5 MG Tablet PO (02:26)
--- NOTE | 2025-03-15 08:15 | PCM.DC.SUM ---
Providers Date of Admission: 03/13/25 Date of Discharge: 03/30/25 Primary Care Physician: Elyse Christie Consultations 03/12/25 21:09 Consult: Hospitalist Routine Consulting Provider: Edward Saldivar Reason for Consult: Post op eval EMERGENT Consult: No MD Notified: Yes Date Notified: 03/12/25 Time Notified: 22:01 Method of Notification: Text Reason For Visit: LACERATION RIGHT FOOT Diagnosis Discharge Diagnosis (1) Laceration of right foot: Status: Acute Code(s): S91.311A - Laceration without foreign body, right foot, initial encounter Qualifiers: Encounter type: initial encounter Qualified Code(s): S91.311A - Laceration without foreign body, right foot, initial encounter (2) Traumatic dislocation of right great toe: Status: Acute Code(s): S93.104A - Unspecified dislocation of right toe(s), initial encounter Qualifiers: Encounter type: initial encounter Qualified Code(s): S93.104A - Unspecified dislocation of right toe(s), initial encounter (3) Laceration of muscle and tendon of long flexor muscle of toe at ankle and foot level, right foot, initial encounter: Status: Acute Code(s): S96.021A - Laceration of muscle and tendon of long flexor muscle of toe at ankle and foot level, right foot, initial encounter (4) Onycholysis: Status: Acute Code(s): L60.1 - Onycholysis (5) Fracture of distal phalanx of toe of right foot: Status: Acute Code(s): S92.911A - Unspecified fracture of right toe(s), initial encounter for closed fracture Medications at Discharge Home Medications multivitamin (Daily Multi-Vitamin tablet) 1 tab PO DAILY supplement 03/12/25 omega 9-ixi-wht-fish oil 1,200 mg (144 mg-216 mg) capsule (Fish Oil) 2 cap PO DAILY supplement 03/12/25 sumatriptan succinate 50 mg tablet 50 mg PO PRN PRN migraine headache 03/12/25 amoxicillin 875 mg-potassium clavulanate 125 mg tablet 1 tab PO BID 2 weeks #28 tabs 03/14/25 ascorbic acid (vitamin C) 1,000 mg tablet (Vitamin C) 1 g PO DAILY 90 days #90 tabs 03/14/25 aspirin 325 mg tablet 325 mg PO BID 30 days #60 tabs 03/14/25 calcium 500 mg (as carbonate)-vitamin D3 15 mcg (600 unit) tablet (Os-Willy 500 + D3) 1 tab PO DAILY 90 days #90 tabs 03/14/25 ciprofloxacin HCl 750 mg tablet 750 mg PO BID 2 weeks #28 tabs 03/14/25 cyclobenzaprine 10 mg tablet 10 mg PO TID muscle spasm 7 days #21 tabs 03/14/25 docusate sodium 100 mg capsule (Colace) 100 mg PO DAILY 10 days #10 caps 03/14/25 oxycodone-acetaminophen 5 mg-325 mg tablet (Endocet) 1 tab PO Q6H 7 days #28 tabs 03/14/25 Physical Exam Narrative Vascular: DP and PT pulses are palpable to left lower extremity. CFT is brisk to the right foot and right hallux. There is evidence of delayed CFT to the plantar flap of the right hallux. Nonpitting edema appreciated to the right foot. Evidence of ecchymosis appreciated to the right foot. Skin temperature great is warm to warm from proximal ankles to distal digit to right lower extremity. Neurological: Light touch is intact. Patient does respond to painful stimuli. Dermatological: All skin is well coapted with suture to the right hallux via advancement flap. There is evidence of ecchymosis to the hallux and the right foot. Slight duskiness appreciated to the plantar flap of the hallux right foot. Sanguinous drainage is appreciated out of the nail bed with a granular nail bed noted. No sign of infection. Musculoskeletal: Muscle strength was deferred. Mild pain on palpation to the incision on the right hallux and right foot. No pain with calf compression. Const alert, oriented x3 and no apparent distress General Appearance: cooperative and comfortable Orientation / Consciousness: awake Exam Limitations: no limitations Weight / BMI Weight Weight: 97.5 kg Body Mass Index (BMI) 29.1 ABG / Lab / Microbiology Data 03/14/25 04:25 03/14/25 04:25 Laboratory: Laboratory Results - last 24 hr 03/13/25 13:05: Hemoglobin A1c 5.4 03/14/25 : Hemoglobin A1c Cancelled Radiography Diagnostic Testing: Radiology Impression Foot X-Ray 03/12/25 15:42 IMPRESSION: 1. No radiopaque foreign body. 2. Probable comminuted fracture and laceration of the 1st distal phalanx. Soft tissue swelling. Reading Location: [facility] D/C Instructions Discharge Diet: No restrictions Discharge Activity: May Not Drive and Use Crutches May resume sexual activity in: No Restrictions Ice area for (Minutes): 20 Weight Bearing Status: No weight bearing Lifting Restricted to (Lbs): 15 Keep extremity elevated above heart level: Right Leg Call your doctor if your incision/area has: Continuous Slow Oozing, Sudden Increased Bleeding, Increased Pain/ Swelling, Increased Redness, Foul Smelling Discharge and Swelling at the incision site Call your doctor if you observe: Fever of 101 or Higher Suture Line Care: Avoid Pulling/Pushing and Avoid Pinching/Bending Change Dressing in: leave in place till F/U Remove Dressing in: leave in place till F/U DC O2, CPAP, BIPAP Needs Home O2 Discharge instructions: No DC home with Oxygen: No Additional Instructions: Patient will follow-up in private office with Dr. Javier for further evaluation dressing changes to right lower extremity. Please keep postoperative dressing clean dry and intact and do not remove please Please Follow Up With: David Javier DPM When: , 03/17/25 at 8:30am Meaningful Use Info Meaningful Use Meaningful Use Diagnoses (Choose all that apply): None applicable Ischemic Stroke Statin Dosing Therapy Reference: STATIN DOSE THERAPY REFERENCE: * Patients > 75 years receive moderate or high dose statin therapy. * Patients 75 years or YOUNGER should receive HIGH intensity statin dose unless contraindicated. You will be required to document reason for non-treatment if statin daily dose does not meet guidelines. HIGH DOSE STATIN THERAPY DAILY Atorvastatin > than or = to 40 mg Rosuvastatin > than or = to 20 mg Amlodipine + Atorvastatin > than or = to 2.5/40 mg Ezetimibe + Simvastatin 10/80 mg Simvastatin 80mg Discharge Plan Admission Admit Date/Time: 03/13/25 14:18 Primary Reason for Your Visit: Right foot emergent surgery Attending Provider: David Javier Primary Care Provider: Elyse Christie Consulting Providers: Gabriel Castano Instructions Additional Instructions / Restrictions: 1. Please keep your surgical dressing clean dry and intact. Do not remove. Do not get it wet. 2. Continue rest, ice (behind your operative knee) and elevate per your postoperative instructions that were given to you at the day of your surgical consultation while in office. 3. Patient will be nonweightbearing to the right lower extremity with posterior splint and crutches. Full weightbearing left lower extremity. 4. Please take all pain medication and prescriptions as written. 5. If you are a diabetic patient please continue tight glucose control while in the postoperative phase. 6. Please continue to follow-up with all your doctors visits prior and after surgery. 7. Please reach out to Dr. Javier, through the paging system in the hospital or private office with any questions or concerns. 8. Thank you for letting me be involved in your surgical care! Discharge Orders/Prescriptions Prescriptions: New oxycodone-acetaminophen [Endocet] 5-325 mg tablet 1 tab PO Q6H 7 Days Qty: 28 0RF aspirin 325 mg tablet 325 mg PO BID 30 Days Qty: 60 0RF ciprofloxacin HCl 750 mg tablet 750 mg PO BID 14 Days Qty: 28 0RF docusate sodium [Colace] 100 mg capsule 100 mg PO DAILY 10 Days Qty: 10 0RF cyclobenzaprine 10 mg tablet 10 mg PO TID 7 Days Qty: 21 0RF calcium carbonate-vitamin D3 [Os-Willy 500 + D3] 500 mg-15 mcg (600 unit) tablet 1 tab PO DAILY 90 Days Qty: 90 0RF ascorbic acid (vitamin C) [Vitamin C] 1,000 mg tablet 1 g PO DAILY 90 Days Qty: 90 0RF amoxicillin-pot clavulanate 875-125 mg tablet 1 tab PO BID 14 Days Qty: 28 0RF No Action sumatriptan succinate 50 mg tablet 50 mg PO PRN PRN (Reason: migraine headache) multivitamin [Daily Multi-Vitamin] Tablet 1 tab PO DAILY omega 9-mwt-qsu-fish oil [Fish Oil] 1,200 (144-216) mg capsule 2 cap PO DAILY Referrals / Follow Up: Jean Paul Monae MD [Med Staff - Infrastructure Solutions Architect] - David Javier DPM [Med Staff - Active Staff] - See Referral Note (Follow in the AM. 03/17/25) Disposition Disposition (needs filled in before D/C Order can be placed): Home, Self Care
[2025-03-15] MEDS: Polyethylene Glycol 3350 17 GM PACKET PO (08:39)
[2025-03-15] MEDS: Aspirin 325 MG Tablet PO (08:39)
[2025-03-15] MEDS: Ascorbic Acid 500 MG Tablet 1000 MG PO (08:39)
[2025-03-15] MEDS: Cholecalciferol (Vit D3) 125 MCG CAPSULE (5,000 UNITS) PO (08:40)
--- NOTE | 2025-03-15 09:18 | CASEMGMT ---
KANU CM into pt room, pt sitting up in chair. Pt has his own knee scooter that was brought to the room. Pt still denies need for a walker. Pt is anxious to go home. He will f/u with on . Pt denies any questions.
== END 2025-03-15 09:50 | disposition home or self-care (01) | DRG 464 ==
LOC: ED 17:35 → SDC 18:22 → MS3 22:02
PROVIDERS: Physician Assistant; Admitting Provider Podiatrist Foot & Ankle Surgery; Emergency Provider Emergency Medicine; Visit Provider Podiatrist Foot & Ankle Surgery
PROC: 0JXQ0ZB Transfer Right Foot Subcutaneous Tissue and Fascia with Skin and Subcutaneous Tissue, Open Approach (ICD-10-PCS; principal; 2025-03-12 18:00)
DX: S92.421B Displaced fracture of distal phalanx of right great toe, initial encounter for open fracture (principal); S96.021A Laceration of muscle and tendon of long flexor muscle of toe at ankle and foot level, right foot, initial encounter; S91.321A Laceration with foreign body, right foot, initial encounter; Q23.81 Bicuspid aortic valve; S93.121A Dislocation of metatarsophalangeal joint of right great toe, initial encounter; L60.1 Onycholysis; G43.909 Migraine, unspecified, not intractable, without status migrainosus; E78.5 Hyperlipidemia, unspecified; W28.XXXA Contact with powered lawn mower, initial encounter
CPT/HCPCS: 36415; 73620; 76000; 80048; 83036; 85025; 90715; 94668; 97116; 97162; 97530; 99252; 99284; A4216; C1769; G0463; J2405

== ENCOUNTER → 2025-04-07 | Outpatient (CLI) | payer BC, SELFPAY ==
--- OUTSIDE RECORDS SUMMARY | 2025-04-07 21:25 | XMS RPT_ITS | CCD ---
Author Organization [facility] CliniSymn Care Team Providers Care Flooring Helper Name Role Phone BOYTIM, V. JARROD Unavailable Unavailable BOYTIM, V. JARROD Unavailable Unavailable BOYTIM, V. JARROD Unavailable Unavailable MARIO MARTÍNEZ DO Primary Care Unavailable SANTO MCCORD Attending Unavaila ble Jam LEVY, Dr. Childress Emergency Provider Elyse Christie Primary Care Provider Jam LEVY, Dr. Childress Emergency Provider [phone] Elyse Christie Primary Care Provider Yaya DPM, Dr. Hernandez Admit Provider Yaya DPM, Dr. Hernandez Other Provider Yariel SHERMAN, Dr. Leon Attending Provider Vamsi Saldivar MD, Dr. Leon Other Provider Unavailab love Javier DPM, Dr. Hernandez Attending Provider Eyad SHERMAN, Dr. Gabriel Gray Other Provider David Javier Referring Unavailable David Javier Admitting Unavailable EDWIN HAY Primary Care Unavailable Edward Saldivar Attending Unavailable Edward Saldivar Consulting Unavailable David Javier Consulting Unavailable David Javier Attending Unavailable David Javier Admitting Unavailable PEELY, EDWIN Primary Care Unavailable Gabriel Castano Consulting Unavailable Medications Current Medications Medication Drug Class(es) Dates Sig (Normalized) Sig (Original) acetaminophen 325 mg / oxyCODONE hydrochloride 5 mg oral tablet (1 source) Opioid Agonist Start: 03-14-2025 take 1 tablet by mouth every six hours Oxycodone-Acetaminop hen (Endocet) 5-325 mg tablet Active 1 {tbl} PO EVERY 6 HOURS 28 March 14, 2025 amoxicillin 875 mg / clavulanate 125 mg oral tablet (1 source) Penicillin-class Antibacterial Start: 03-14-2025 Amoxicillin-Pot Clavulanate 875-125 mg tablet Active 1 {tbl} PO TWICE A DAY 28 March 14, 2025 12:00am ascorbic acid 1000 mg oral tablet (1 source) Vitamin C Start: 03-14-2025 take 1 g by mouth once daily Ascorbic Acid (Vitamin C) (Vitamin C) 1,000 mg tablet Active 1 g PO DAILY 90 March 14, 2025 12:00am aspirin 325 mg oral tablet (1 source) Platelet Aggregation Inhibitor, Nonsteroidal Anti-inflammatory Drug Start: 03-14-2025 take 1 tablet by mouth twice daily Aspirin 325 mg tablet Active 325 mg PO TWICE A DAY 60 30 March 14, 2025 12:00am calcium carbonate 1250 mg / cholecalciferol 600 unt oral tablet (1 source) Vitamin D Start: 03-14-2025 Calcium Carbonate-Vitamin D3 (Os-Willy 500 + D3) 500 mg-15 mcg (600 unit) tablet Active 1 {tbl} PO DAILY 90 March 14, 2025 12:00am ciprofloxacin 750 mg oral tablet (1 source) Quinolone Antimicrobial Start: 03-14-2025 take 1 tablet by mouth twice daily Ciprofloxacin Hcl 750 mg tablet Active 750 mg PO TWICE A DAY 28 March 14, 2025 12:00am cyclobenzaprine hydrochloride 10 mg oral tablet (1 source) Muscle Relaxant Start: 03-14-2025 take 1 tablet by mouth three times daily Cyclobenzaprine 10 mg tablet Active 10 mg PO THREE TIMES A DAY 21 March 14, 2025 12:00am docusate sodium 100 mg oral capsule (1 source) Start: 03-14-2025 take 1 capsule by mouth once daily Docusate Sodium (Colace) 100 mg capsule Active 100 mg PO DAILY 10 March 14, 2025 12:00am Multivitamin (Daily Multi-Vitamin) tablet (2 sources) Start: 03-12-2025 Multivitamin (Daily Multi-Vitamin) tablet Active 1 {tbl} PO DAILY March 12, 2025 12:00am [place] 1-Buw-Vkt-Fish Oil (Fish Oil) 1,200 (144-216) mg capsule (2 sources) Start: 03-12-2025 [place] 3-Bni-Ylc-Fish Oil (Fish Oil) 1,200 (144-216) mg capsule Active 2 NMA PO DAILY March 12, 2025 12:00am SUMAtriptan 50 mg oral tablet (2 sources) Serotonin-1b and Serotonin-1d Receptor Agonist Start: 03-12-2025 Sumatriptan Succinate 50 mg tablet Active 50 mg PO NEEDED as needed for migraine headache March 12, 2025 12:00am Problems Active Problems Problem Classification Problem Date Documented Date Episodic/Chronic Fracture of lower limb (3 sources) Unspecified fracture of right toe(s), initial encounter for closed fracture; Translations: [Fracture of distal phalanx of toe of right foot] Onset: 03-15-2025 03-12-2025 Episodic Joint disorders and dislocations; trauma-related (3 sources) Traumatic dislocation of great toe; Translations: [Unspecified dislocation of right toe(s), initial encounter] Onset: 03-15-2025 03-12-2025 Episodic Open wounds of extremities (7 sources) Laceration of lower limb; Translations: [Laceration of muscle and tendon of long flexor muscle of toe at ankle and foot level, right foot, initial encounter] Onset: 03-15-2025 03-12-2025 Episodic Other nervous system disorders (1 source) Acute postoperative pain; Translations: [Other acute postprocedural pain] 03-14-2025 Episodic Other skin disorders (2 sources) Onycholysis; Translations: [Onycholysis] 03-12-2025 Episodic Other skin disorders (1 source) Onycholysis; Translations: [Onycholysis] Onset: 03-15-2025 Episodic Unclassified (1 source) Unknown / UNK(Unknown) Onset: 06-18-2017 Unclassified (1 source) Follow in the AM. 03/17/25 Past or Other Problems Problem Classification Problem Date Documented Da te Episodic/Chronic Heart valve disorders (1 source) Cardiac murmur, unspecified; Translations: [Cardiac murmur, unspecified] Onset: 07-11-2017 Episodic Unclassified (1 source) Encounter for screening for lipoid disorders; Translations: [Encounter for screening for lipoid disorders] Onset: 06-18-2017 Episodic Results Test Name Value Interpretation Reference Range Facility Basic Metabolic Profile (BMP )on 03-16-2025 BUN Normal 4-19 [facility] Comment on above: Result Comment: Canc elled via OM: Order cancelled - Patient discharged Performed By: #### L 500.2500 ####[facility] [address] [place], [address] BUN/CRE Normal 10-20 [facility] Comment on above: Result Comment: Canc elled via OM: Order cancelled - Patient discharged Performed By: #### L 500.2500 ####[facility] [address] [place], [address] Calcium Normal 7.6-11.0 [facility] Comment on above: Result Comment: Canc elled via OM: Order cancelled - Patient discharged Performed By: #### L 500.2500 ####[facility] [address] [place], [address] CL Normal 98-108 [facility] Comment on above: Result Comment: Canc elled via OM: Order cancelled - Patient discharged Performed By: #### L 500.2500 ####[facility] [address] [place], [address] CO2 Normal 21.0-32.0 [facility] Comment on above: Result Comment: Canc elled via OM: Order cancelled - Patient discharged Performed By: #### L 500.2500 ####[facility] [address] [place], [address] CREAT,SERUM Normal 0.70-1.20 [facility] Comment on above: Result Comment: Canc elled via OM: Order cancelled - Patient discharged Performed By: #### L 500.2500 ####[facility] [address] [place], [address] eGFR Normal >60 [facility] Comment on above: Result Comment: Canc elled via OM: Order cancelled - Patient discharged Performed By: #### L 500.2500 ####[facility] [address] [place], [address] GAP Normal 5-15 [facility] Comment on above: Result Comment: Canc elled via OM: Order cancelled - Patient discharged Performed By: #### L 500.2500 ####[facility] [address] [place], [address] GLU Normal 70-99 [facility] Comment on above: Result Comment: Canc elled via OM: Order cancelled - Patient discharged Performed By: #### L 500.2500 ####[facility] [address] [place], [address] Potassium Normal 3.3-5.1 [facility] Comment on above: Result Comment: Canc elled via OM: Order cancelled - Patient discharged Performed By: #### L 500.2500 ####[facility] [address] [place], [address] Basic Metabolic Profile (BMP) Normal 133-145 [facility] Comment on above: Result Comment: Canc elled via OM: Order cancelled - Patient discharged Performed By: #### L 500.2500 ####[facility] [address] [place], [address] CBC W/Diff, Automatedon 05-2 Absolute Neut Normal 2.0-7.7 [facility] Comment on above: Result Comment: Canc elled via OM: Order cancelled - Patient discharged Performed By: #### L 100.0100 ####[facility] [address] [place], [address] HCT Normal 40-54 [facility] Comment on above: Result Comment: Canc elled via OM: Order cancelled - Patient discharged Performed By: #### L 100.0100 ####[facility] [address] [place], [address] HGB Normal 13.0-16.5 [facility] Comment on above: Result Comment: Canc elled via OM: Order cancelled - Patient discharged Performed By: #### L 100.0100 ####[facility] [address] [place], [address] MCH Normal 27.0-32.0 [facility] Comment on above: Result Comment: Canc elled via OM: Order cancelled - Patient discharged Performed By: #### L 100.0100 ####[facility] [address] [place], [address] MCHC Normal 32-36 [facility] Comment on above: Result Comment: Canc elled via OM: Order cancelled - Patient discharged Performed By: #### L 100.0100 ####[facility] [address] [place], [address] MCV Normal 80-94 [facility] Comment on above: Result Comment: Canc elled via OM: Order cancelled - Patient discharged Performed By: #### L 100.0100 ####[facility] [address] [place], [address] NEUT% Normal 47-70 [facility] Comment on above: Result Comment: Canc elled via OM: Order cancelled - Patient discharged Performed By: #### L 100.0100 ####[facility] [address] [place], [address] PLT Normal 150-450 [facility] Comment on above: Result Comment: Canc elled via OM: Order cancelled - Patient discharged Performed By: #### L 100.0100 ####[facility] [address] [place], [address] RBC Normal 4.6-6.2 [facility] Comment on above: Result Comment: Canc elled via OM: Order cancelled - Patient discharged Performed By: #### L 100.0100 ####[facility] [address] [place], [address] RDW CV Normal 11.6-14.6 [facility] Comment on above: Result Comment: Canc elled via OM: Order cancelled - Patient discharged Performed By: #### L 100.0100 ####[facility] [address] [place], [address] RDW SD Normal 35.1-43.9 [facility] Comment on above: Result Comment: Canc elled via OM: Order cancelled - Patient discharged Performed By: #### L 100.0100 ####[facility] [address] [place], [address] WBC Normal 4.4-11.0 [facility] Comment on above: Result Comment: Canc elled via OM: Order cancelled - Patient discharged Performed By: #### L 100.0100 ####[facility] [address] [place], [address] Basic Metabolic Profile (BMP )on 03-15-2025 BUN Normal 4-19 [facility] Comment on above: Order Comment: docto r did not specify which one said he did not need to do any lab work today. Result Comment: TAN ENT DISCHARGED Performed By: #### L 500.2500 #### [facility] [address] [place], [address] BUN/CRE Normal 10-20 [facility] Comment on above: Order Comment: docto r did not specify which one said he did not need to do any lab work today. Result Comment: TAN ENT DISCHARGED Performed By: #### L 500.2500 #### [facility] [address] [place], [address] Calcium Normal 7.6-11.0 [facility] Comment on above: Order Comment: docto r did not specify which one said he did not need to do any lab work today. Result Comment: TAN ENT DISCHARGED Performed By: #### L 500.2500 #### [facility] [address] [place], [address] CL Normal 98-108 [facility] Comment on above: Order Comment: docto r did not specify which one said he did not need to do any lab work today. Result Comment: TAN ENT DISCHARGED Performed By: #### L 500.2500 #### [facility] [address] [place], [address] CO2 Normal 21.0-32.0 [facility] Comment on above: Order Comment: docto r did not specify which one said he did not need to do any lab work today. Result Comment: TAN ENT DISCHARGED Performed By: #### L 500.2500 #### [facility] [address] [place], [address] CREAT,SERUM Normal 0.70-1.20 [facility] Comment on above: Order Comment: docto r did not specify which one said he did not need to do any lab work today. Result Comment: TAN ENT DISCHARGED Performed By: #### L 500.2500 #### [facility] [address] [place], [address] eGFR Normal >60 [facility] Comment on above: Order Comment: docto r did not specify which one said he did not need to do any lab work today. Result Comment: TAN ENT DISCHARGED Performed By: #### L 500.2500 #### [facility] [address] [place], [address] GAP Normal 5-15 [facility] Comment on above: Order Comment: docto r did not specify which one said he did not need to do any lab work today. Result Comment: TAN ENT DISCHARGED Performed By: #### L 500.2500 #### [facility] [address] [place], [address] GLU Normal 70-99 [facility] Comment on above: Order Comment: docto r did not specify which one said he did not need to do any lab work today. Result Comment: TAN ENT DISCHARGED Performed By: #### L 500.2500 #### [facility] [address] [place], [address] Potassium Normal 3.3-5.1 [facility] Comment on above: Order Comment: docto r did not specify which one said he did not need to do any lab work today. Result Comment: TAN ENT DISCHARGED Performed By: #### L 500.2500 #### [facility] [address] [place], [address] Basic Metabolic Profile (BMP) Normal 133-145 [facility] Comment on above: Order Comment: docto r did not specify which one said he did not need to do any lab work today. Result Comment: TAN ENT DISCHARGED Performed By: #### L 500.2500 #### [facility] [address] [place], [address] CBC W/Diff, Automatedon 05-2 0-2024 Absolute Neut Normal 2.0-7.7 [facility] Comment on above: Order Comment: docto r did not specify which one said he did not need to doany lab work today. Result Comment: TAN ENT DISCHARGED Performed By: #### L 100.0100 ####[facility] [address] [place], [address] HCT Normal 40-54 [facility] Comment on above: Order Comment: docto r did not specify which one said he did not need to doany lab work today. Result Comment: TAN ENT DISCHARGED Performed By: #### L 100.0100 ####[facility] [address] [place], [address] HGB Normal 13.0-16.5 [facility] Comment on above: Order Comment: docto r did not specify which one said he did not need to doany lab work today. Result Comment: TAN ENT DISCHARGED Performed By: #### L 100.0100 ####[facility] [address] [place], [address] MCH Normal 27.0-32.0 [facility] Comment on above: Order Comment: docto r did not specify which one said he did not need to doany lab work today. Result Comment: TAN ENT DISCHARGED Performed By: #### L 100.0100 ####[facility] [address] [place], [address] MCHC Normal 32-36 [facility] Comment on above: Order Comment: docto r did not specify which one said he did not need to doany lab work today. Result Comment: TAN ENT DISCHARGED Performed By: #### L 100.0100 ####[facility] [address] [place], [address] MCV Normal 80-94 [facility] Comment on above: Order Comment: docto r did not specify which one said he did not need to doany lab work today. Result Comment: TAN ENT DISCHARGED Performed By: #### L 100.0100 ####[facility] [address] [place], [address] NEUT% Normal 47-70 [facility] Comment on above: Order Comment: docto r did not specify which one said he did not need to doany lab work today. Result Comment: TAN ENT DISCHARGED Performed By: #### L 100.0100 ####[facility] [address] [place], [address] PLT Normal 150-450 [facility] Comment on above: Order Comment: docto r did not specify which one said he did not need to doany lab work today. Result Comment: TAN ENT DISCHARGED Performed By: #### L 100.0100 ####[facility] [address] [place], [address] RBC Normal 4.6-6.2 [facility] Comment on above: Order Comment: docto r did not specify which one said he did not need to doany lab work today. Result Comment: TAN ENT DISCHARGED Performed By: #### L 100.0100 ####[facility] [address] [place], [address] RDW CV Normal 11.6-14.6 [facility] Comment on above: Order Comment: docto r did not specify which one said he did not need to doany lab work today. Result Comment: TAN ENT DISCHARGED Performed By: #### L 100.0100 ####[facility] [address] [place], [address] RDW SD Normal 35.1-43.9 [facility] Comment on above: Order Comment: docto r did not specify which one said he did not need to doany lab work today. Result Comment: TAN ENT DISCHARGED Performed By: #### L 100.0100 ####[facility] [address] [place], [address] WBC Normal 4.4-11.0 [facility] Comment on above: Order Comment: docto r did not specify which one said he did not need to doany lab work today. Result Comment: TAN ENT DISCHARGED Performed By: #### L 100.0100 ####[facility] [address] [place], [address] Absolute lymphocyte countOrd ered By: David Javier on 03-14-2025 Lymphocytes Auto (Unsp spec) [#/Vol] 2.62 10*3/uL 0.83-4.51 [facility] Absolute neutrophil countOrd ered By: David Javier on 03-14-2025 Neutrophils (Bld) [#/Vol] 5.6 10*3/uL 2.0-7.7 [facility] Anion gap in Serum or Plasma Ordered By: David Javier on 03-14-2025 Anion gap [Moles/Vol] 11 mmol/L 03-10 [facility] Automated lymphocyte count a s percentage of total leukocytesOrdered By: David Javier on 03-14-2025 Lymphocytes/100 WBC Auto (Unsp spec) 28.7 % [facility] BUN/creatinine ratioOrdered By: David Javier on 03-14-2025 Urea nitrogen/Creatinine [Mass ratio] 9.2 mg/mg Low 08-15 [facility] Basic Metabolic Profile (BMP )on 03-14-2025 BUN Normal 4-19 [facility] Comment on above: Result Comment: Canc elled via OM: MD Ordered Performed By: #### L 500.2500 #### [facility] [address] [place], [address] BUN/CRE Normal 10-20 [facility] Comment on above: Result Comment: Canc elled via OM: MD Ordered Performed By: #### L 500.2500 #### [facility] [address] [place], [address] Calcium Normal 7.6-11.0 [facility] Comment on above: Result Comment: Canc elled via OM: MD Ordered Performed By: #### L 500.2500 #### [facility] [address] [place], [address] CL Normal 98-108 [facility] Comment on above: Result Comment: Canc elled via OM: MD Ordered Performed By: #### L 500.2500 #### [facility] [address] [place], [address] CO2 Normal 21.0-32.0 [facility] Comment on above: Result Comment: Canc elled via OM: MD Ordered Performed By: #### L 500.2500 #### [facility] [address] [place], [address] CREAT,SERUM Normal 0.70-1.20 [facility] Comment on above: Result Comment: Canc elled via OM: MD Ordered Performed By: #### L 500.2500 #### [facility] [address] [place], [address] eGFR Normal >60 [facility] Comment on above: Result Comment: Canc elled via OM: MD Ordered Performed By: #### L 500.2500 #### [facility] [address] [place], [address] GAP Normal 5-15 [facility] Comment on above: Result Comment: Canc elled via OM: MD Ordered Performed By: #### L 500.2500 #### [facility] [address] [place], [address] GLU Normal 70-99 [facility] Comment on above: Result Comment: Canc elled via OM: MD Ordered Performed By: #### L 500.2500 #### [facility] [address] [place], [address] Potassium Normal 3.3-5.1 [facility] Comment on above: Result Comment: Canc elled via OM: MD Ordered Performed By: #### L 500.2500 #### [facility] [address] [place], [address] Basic Metabolic Profile (BMP) Normal 133-145 [facility] Comment on above: Result Comment: Canc elled via OM: MD Ordered Performed By: #### L 500.2500 #### [facility] [address] [place], [address] BUN/CRE 9.2 RATIO Low 10-20 [facility] Comment on above: Performed By: #### L 500.2500 #### [facility] [address] [place], [address] Calcium [Mass/Vol] 8.8 mg/dL Normal 7.6-11.0 [facility] Comment on above: Performed By: #### L 500.2500 #### [facility] [address] [place], [address] Chloride [Moles/Vol] 104 mmol/L Normal 98-108 [facility] Comment on above: Performed By: #### L 500.2500 #### [facility] [address] [place], [address] CO2 [Moles/Vol] 23.4 mmol/L Normal 21.0-32.0 [facility] Comment on above: Performed By: #### L 500.2500 #### [facility] [address] [place], [address] Creatinine [Mass/Vol] 1.09 mg/dL Normal 0.70-1.20 [facility] Comment on above: Performed By: #### L 500.2500 #### [facility] [address] [place], [address] ECRCL 119.92 ml/min Normal 50-250 [facility] Comment on above: Performed By: #### L 500.2500 #### [facility] [address] [place], [address] GAP 11 Normal 5-15 [facility] Comment on above: Performed By: #### L 500.2500 #### [facility] [address] [place], [address] GFR/1.73 sq M.predicted among non-blacks MDRD (S/P/Bld) [Vol rate/Area] 94 mL/min/{1.73_m2} Normal >60 [facility] Comment on above: Result Comment: mL/m in/1.73m2 CKD-EPI Creatinine Equation (2020) Performed By: #### L 500.2500 #### [facility] [address] [place], [address] Glucose [Mass/Vol] 101 mg/dL High 70-99 [facility] Comment on above: Performed By: #### L 500.2500 #### [facility] [address] [place], [address] Potassium [Moles/Vol] 4.3 mmol/L Normal 3.3-5.1 [facility] Comment on above: Performed By: #### L 500.2500 #### [facility] [address] [place], [address] Sodium [Moles/Vol] 138 mmol/L Normal 133-145 [facility] Comment on above: Performed By: #### L 500.2500 #### [facility] [address] [place], [address] Urea nitrogen [Mass/Vol] 10 mg/dL Normal 4-19 [facility] Comment on above: Performed By: #### L 500.2500 #### [facility] [address] [place], [address] Basophil percentageOrdered B y: David Javier on 03-14-2025 Basophils/100 WBC (Bld) 0.3 % 0-1 [facility] CBC W/Diff, Automatedon 02-24 Absolute Lymph 2.62 X10 3/uL Normal 0.83-4.51 [facility] Comment on above: Performed By: #### L 100.0100 #### [facility] [address] [place], [address] Absolute Neut 5.6 X10 3/uL Normal 2.0-7.7 [facility] Comment on above: Performed By: #### L 100.0100 #### [facility] [address] [place], [address] Basophils/100 WBC (Bld) 0.3 % Normal 0-1 [facility] Comment on above: Performed By: #### L 100.0100 #### [facility] [address] [place], [address] Eosinophils/100 WBC (Bld) 1.6 % Normal 0-5 [facility] Comment on above: Performed By: #### L 100.0100 #### [facility] [address] [place], [address] Erythrocyte distribution width (RBC) [Ratio] 12.9 % Normal 11.6-14.6 [facility] Comment on above: Performed By: #### L 100.0100 #### [facility] [address] [place], [address] Hematocrit (Bld) [Volume fraction] 38.0 % Low 40-54 [facility] Comment on above: Performed By: #### L 100.0100 #### [facility] [address] [place], [address] Hemoglobin (Bld) [Mass/Vol] 12.6 g/dL Low 13.0-16.5 [facility] Comment on above: Performed By: #### L 100.0100 #### [facility] [address] [place], [address] IG% 0.200 Normal 0.0-0.9 [facility] Comment on above: Result Comment: IG% - Immature Granulocytes (promyelocytes, myelocytes and metamyelocytes) > 1% indicates that a LEFT SHIFT is Present. Performed By: #### L 100.0100 #### [facility] [address] [place], [address] Lymphocytes/100 WBC (Bld) 28.7 % Normal 19-41 [facility] Comment on above: Performed By: #### L 100.0100 #### [facility] [address] [place], [address] MCH (RBC) [Entitic mass] 30.5 pg Normal 27.0-32.0 [facility] Comment on above: Performed By: #### L 100.0100 #### [facility] [address] [place], [address] MCHC (RBC) [Mass/Vol] 33.2 g/dL Normal 32-36 [facility] Comment on above: Performed By: #### L 100.0100 #### [facility] [address] [place], [address] MCV (RBC) [Entitic vol] 92.0 fL Normal 80-94 [facility] Comment on above: Performed By: #### L 100.0100 #### [facility] [address] [place], [address] Monocytes/100 WBC (Bld) 8.2 % Normal 0-10 [facility] Comment on above: Performed By: #### L 100.0100 #### [facility] [address] [place], [address] Neutrophils/100 WBC (Bld) 61.0 % Normal 47-70 [facility] Comment on above: Performed By: #### L 100.0100 #### [facility] [address] [place], [address] Nucleated RBC (Bld) [#/Vol] 0 10*3/uL Normal 0-5 [facility] Comment on above: Performed By: #### L 100.0100 #### [facility] [address] [place], [address] Platelet mean volume (Bld) [Entitic vol] 9.9 fL Normal 6.2-12.0 [facility] Comment on above: Performed By: #### L 100.0100 #### [facility] [address] [place], [address] Platelets (Bld) [#/Vol] 193 10*3/uL Normal 150-450 [facility] Comment on above: Performed By: #### L 100.0100 #### [facility] [address] [place], [address] RBC (Bld) [#/Vol] 4.13 10*6/uL Low 4.6-6.2 [facility] Comment on above: Performed By: #### L 100.0100 #### [facility] [address] [place], [address] RDW SD 43.2 fl Normal 35.1-43.9 [facility] Comment on above: Performed By: #### L 100.0100 #### [facility] [address] [place], [place], [address] WBC (Bld) [#/Vol] 9.1 10*3/uL Normal 4.4-11.0 [facility] Comment on above: Performed By: #### L 100.0100 #### [facility] [address] [place], [place], [address] Carbon dioxide, total [Moles /volume] in Central venous bloodOrdered By: David Javier on 03-14-2025 CO2 [Moles/Vol] 23.4 mmol/L 21.0-32.0 [facility] Chloride assayOrdered By: Shira Javier on 03-14-2025 Chloride [Moles/Vol] 104 mmol/L 98-108 [facility] Eosinophil percentageOrdered By: David Javier on 03-14-2025 Eosinophils/100 WBC (Bld) 1.6 % 0-5 [facility] Erythrocyte distribution wid th ratioOrdered By: David Javier on 03-14-2025 Erythrocyte distribution width (RBC) [Ratio] 12.9 % 11.6-14.6 [facility] Erythrocyte distribution wid th standard deviationOrdered By: David Javier on 03-14-2025 Erythrocyte distribution width (RBC) [Ratio] 43.2 fl 35.1-43.9 [facility] Glomerular filtration rate ( GFR) estimation/1.73 sq m using serum, plasma, or whole bOrdered By: David Javier on 03-14-2025 GFR/1.73 sq M.predicted among non-blacks MDRD (S/P/Bld) [Vol rate/Area] 94 mL/min/{1.73_m2} >60 [facility] Comment on above: mL/min/1.73m2 CKD-EP I Creatinine Equation (2020) Hematocrit Auto (Bld) [Volum e fraction]Ordered By: David Javier on 03-14-2025 Hematocrit (Bld) [Volume fraction] 38.0 % Low 40-54 [facility] Hemoglobin A1con 03-14-2025 HbA1c (Bld) [Mass fraction] 5.4 % Normal <=5.6 [facility] Comment on above: Result Comment: Norm al < 5.7 % Prediabetic 5.7 - 6.4 % Diabetic >or= 6.5 % Please note range changes. Performed By: #### L 185.9906 #### [facility] [address] [place], [address] Hemoglobin measurementOrdere d By: David Javier on 03-14-2025 Hemoglobin (Bld) [Mass/Vol] 12.6 g/dL Low 13.0-16.5 [facility] Immature granulocytes/100 WB C Auto (Bld)Ordered By: David Javier on 03-14-2025 Immature granulocytes/100 WBC (Bld) 0.200 % 0.0-0.9 [facility] Comment on above: IG% - Immature Granu locytes (promyelocytes, myelocytes and metamyelocytes) > 1% indicates that a LEFT SHIFT is Present. MCV (mean corpuscular volume ) determinationOrdered By: David Javier on 03-14-2025 MCV (RBC) [Entitic vol] 92.0 fL 80-94 [facility] Mean corpuscular hemoglobin (MCH) determinationOrdered By: David Javier on 03-14-2025 MCH (RBC) [Entitic mass] 30.5 pg 27.0-32.0 [facility] Mean corpuscular hemoglobin concentration (MCHC) determinationOrdered By: David Javier on 03-14-2025 MCHC (RBC) [Mass/Vol] 33.2 g/dL 32-36 [facility] Mean platelet volume determi nationOrdered By: David Javier on 03-14-2025 Platelet mean volume (Bld) [Entitic vol] 9.9 fL 6.2-12.0 [facility] Monocyte percentageOrdered B y: David Javier on 03-14-2025 Monocytes/100 WBC (Bld) 8.2 % 0-10 [facility] Neutrophil percentageOrdered By: David Javier on 03-14-2025 Neutrophils/100 WBC (Bld) 61.0 % 47-70 [facility] Nucleated red blood cell per centageOrdered By: David Javier on 03-14-2025 Nucleated RBC/100 WBC (Bld) [Ratio] 0 % 0-5 [facility] Platelet countOrdered By: Shira Javier on 03-14-2025 Platelets (Bld) [#/Vol] 193 10*3/uL 150-450 [facility] Potassium measurement (mass/ volume)Ordered By: David Javier on 03-14-2025 Potassium (Unsp spec) [Mass/Vol] 4.3 mmol/L 3.3-5.1 [facility] RBC Auto (Bld) [#/Vol]Ordere d By: David Javier on 03-14-2025 RBC (Bld) [#/Vol] 4.13 10*6/uL Low 4.6-6.2 [facility] Serum creatinine measurement (mass/volume)Ordered By: David Javier on 03-14-2025 Creatinine [Mass/Vol] 1.09 mg/dL 0.70-1.20 [facility] Serum glucose measurement (m ass/volume)Ordered By: David Javier on 03-14-2025 Glucose [Mass/Vol] 101 mg/dL High 70-99 [facility] Serum or plasma calcium rosemarie urement (mass/volume)Ordered By: David Javier on 03-14-2025 Calcium [Mass/Vol] 8.8 mg/dL 7.6-11.0 [facility] Serum or plasma urea nitroge n measurement (mass/volume)Ordered By: David Javier on 03-14-2025 Urea nitrogen [Mass/Vol] 10 mg/dL 4-19 [facility] Sodium levelOrdered By: Warren Javier on 03-14-2025 Sodium [Moles/Vol] 138 mmol/L 133-145 [facility] White blood cell (WBC) count Ordered By: David Javier on 03-14-2025 WBC (Bld) [#/Vol] 9.1 10*3/uL 4.4-11.0 [facility] Basic Metabolic Profile (BMP )on 03-13-2025 BUN/CRE 9.8 RATIO Low 10-20 [facility] Comment on above: Performed By: #### L 500.2500, L100.0100 #### [facility] [place], [address] Calcium [Mass/Vol] 8.6 mg/dL Normal 7.6-11.0 [facility] Comment on above: Performed By: #### L 500.2500, L100.0100 #### [facility] [address] [place], [address] Chloride [Moles/Vol] 105 mmol/L Normal 98-108 [facility] Comment on above: Performed By: #### L 500.2500, L100.0100 #### [facility] [address] [place], [address] CO2 [Moles/Vol] 24.0 mmol/L Normal 21.0-32.0 [facility] Comment on above: Performed By: #### L 500.2500, L100.0100 #### [facility] [address] [place], [address] Creatinine [Mass/Vol] 1.23 mg/dL High 0.70-1.20 [facility] Comment on above: Performed By: #### L 500.2500, L100.0100 #### [facility] [address] [place], [address] ECRCL 106.27 ml/min Normal 50-250 [facility] Comment on above: Performed By: #### L 500.2500, L100.0100 #### [facility] [address] [place], [address] GAP 11 Normal 5-15 [facility] Comment on above: Performed By: #### L 500.2500, L100.0100 #### [facility] [address] [place], [address] GFR/1.73 sq M.predicted among non-blacks MDRD (S/P/Bld) [Vol rate/Area] 81 mL/min/{1.73_m2} Normal >60 [facility] Comment on above: Result Comment: mL/m in/1.73m2 CKD-EPI Creatinine Equation (2020) Performed By: #### L 500.2500, L100.0100 #### [facility] [address] [place], [address] Glucose [Mass/Vol] 97 mg/dL Normal 70-99 [facility] Comment on above: Performed By: #### L 500.2500, L100.0100 #### [facility] [address] [place], [address] Potassium [Moles/Vol] 4.2 mmol/L Normal 3.3-5.1 [facility] Comment on above: Performed By: #### L 500.2500, L100.0100 #### [facility] [address] [place], [address] Sodium [Moles/Vol] 141 mmol/L Normal 133-145 [facility] Comment on above: Performed By: #### L 500.2500, L100.0100 #### [facility] [address] [place], [address] Urea nitrogen [Mass/Vol] 12 mg/dL Normal 4-19 [facility] Comment on above: Performed By: #### L 500.2500, L100.0100 #### [facility] [address] [place], [address] CBC W/Diff, Automatedon 05-1 Absolute Lymph 2.91 X10 3/uL Normal 0.83-4.51 [facility] Comment on above: Performed By: #### L 500.2500, L100.0100 #### [facility] [address] [place], [address] Absolute Neut 7.2 X10 3/uL Normal 2.0-7.7 [facility] Comment on above: Performed By: #### L 500.2500, L100.0100 #### [facility] [address] [place], [address] Basophils/100 WBC (Bld) 0.3 % Normal 0-1 [facility] Comment on above: Performed By: #### L 500.2500, L100.0100 #### [facility] [address] [place], [address] Eosinophils/100 WBC (Bld) 0.4 % Normal 0-5 [facility] Comment on above: Performed By: #### L 500.2500, L100.0100 #### [facility] [address] [place], [address] Erythrocyte distribution width (RBC) [Ratio] 13.0 % Normal 11.6-14.6 [facility] Comment on above: Performed By: #### L 500.2500, L100.0100 #### [facility] [address] [place], [address] Hematocrit (Bld) [Volume fraction] 38.1 % Low 40-54 [facility] Comment on above: Performed By: #### L 500.2500, L100.0100 #### [facility] [address] [place], [address] Hemoglobin (Bld) [Mass/Vol] 13.0 g/dL Normal 13.0-16.5 [facility] Comment on above: Performed By: #### L 500.2500, L100.0100 #### [facility] [address] [place], [address] IG% 0.400 Normal 0.0-0.9 [facility] Comment on above: Result Comment: IG% - Immature Granulocytes (promyelocytes, myelocytes and metamyelocytes) > 1% indicates that a LEFT SHIFT is Present. Performed By: #### L 500.2500, L100.0100 #### [facility] [address] [place], [address] Lymphocytes/100 WBC (Bld) 25.7 % Normal 19-41 [facility] Comment on above: Performed By: #### L 500.2500, L100.0100 #### [facility] [address] [place], [address] MCH (RBC) [Entitic mass] 30.9 pg Normal 27.0-32.0 [facility] Comment on above: Performed By: #### L 500.2500, L100.0100 #### [facility] [address] [place], [address] MCHC (RBC) [Mass/Vol] 34.1 g/dL Normal 32-36 [facility] Comment on above: Performed By: #### L 500.2500, L100.0100 #### [facility] [address] [place], [address] MCV (RBC) [Entitic vol] 90.5 fL Normal 80-94 [facility] Comment on above: Performed By: #### L 500.2500, L100.0100 #### [facility] [address] [place], [address] Monocytes/100 WBC (Bld) 9.5 % Normal 0-10 [facility] Comment on above: Performed By: #### L 500.2500, L100.0100 #### [facility] [address] [place], [address] Neutrophils/100 WBC (Bld) 63.7 % Normal 47-70 [facility] Comment on above: Performed By: #### L 500.2500, L100.0100 #### [facility] [address] [place], [address] Nucleated RBC (Bld) [#/Vol] 0 10*3/uL Normal 0-5 [facility] Comment on above: Performed By: #### L 500.2500, L100.0100 #### [facility] [address] [place], [address] Platelet mean volume (Bld) [Entitic vol] 9.8 fL Normal 6.2-12.0 [facility] Comment on above: Performed By: #### L 500.2500, L100.0100 #### [facility] [address] [place], [address] Platelets (Bld) [#/Vol] 219 10*3/uL Normal 150-450 [facility] Comment on above: Performed By: #### L 500.2500, L100.0100 #### [facility] [address] [place], [address] RBC (Bld) [#/Vol] 4.21 10*6/uL Low 4.6-6.2 [facility] Comment on above: Performed By: #### L 500.2500, L100.0100 #### [facility] [address] [place], [address] RDW SD 42.3 fl Normal 35.1-43.9 [facility] Comment on above: Performed By: #### L 500.2500, L100.0100 #### [facility] [address] [place], [address] WBC (Bld) [#/Vol] 11.3 10*3/uL High 4.4-11.0 [facility] Comment on above: Performed By: #### L 500.2500, L100.0100 #### [facility] [address] [place], [address] Hemoglobin A1c percentageOrd ered By: David Javier on 03-13-2025 HbA1c (Bld) [Mass fraction] 5.4 % <5.7 [facility] Comment on above: Normal < 5.7 % Predi abetic 5.7 - 6.4 % Diabetic >or= 6.5 % Please note range changes. Absolute lymphocyte countOrd ered By: Olga Johnson on 03-12-2025 Lymphocytes Auto (Unsp spec) [#/Vol] 4.95 10*3/uL High 0.83-4.51 [facility] Absolute neutrophil countOrd ered By: Olga Johnson on 03-12-2025 Neutrophils (Bld) [#/Vol] 3.9 10*3/uL 2.0-7.7 [facility] Anion gap in Serum or Plasma Ordered By: Olga Johnson on 03-12-2025 Anion gap [Moles/Vol] 18 mmol/L High 5-15 [facility] Automated lymphocyte count a s percentage of total leukocytesOrdered By: Olga Johnson on 03-12-2025 Lymphocytes/100 WBC Auto (Unsp spec) 50.4 % High 19- [facility] BUN/creatinine ratioOrdered By: Olga Johnson on 03-12-2025 Urea nitrogen/Creatinine [Mass ratio] 13.6 mg/mg 10- [facility] Basic Metabolic Profile (BMP )on 03-12-2025 BUN/CRE 13.6 RATIO Normal - [facility] Comment on above: Performed By: #### L 100.0100, L500.2500 ####[facility] [address] [place], [address] Calcium [Mass/Vol] 9.8 mg/dL Normal 7.6-11.0 [facility] Comment on above: Performed By: #### L 100.0100, L500.2500 ####[facility] [address] [place], [address] Chloride [Moles/Vol] 101 mmol/L Normal 98-108 [facility] Comment on above: Performed By: #### L 100.0100, L500.2500 ####[facility] [address] [place], [address] CO2 [Moles/Vol] 19.9 mmol/L Low 21.0-32.0 [facility] Comment on above: Performed By: #### L 100.0100, L500.2500 ####[facility] [address] [place], [address] Creatinine [Mass/Vol] 1.21 mg/dL High 0.70-1.20 [facility] Comment on above: Performed By: #### L 100.0100, L500.2500 ####[facility] [address] [place], [address] ECRCL 108.03 ml/min Normal 50-250 [facility] Comment on above: Performed By: #### L 100.0100, L500.2500 ####[facility] [address] [place], [address] GAP 18 High 5-15 [facility] Comment on above: Performed By: #### L 100.0100, L500.2500 ####[facility] [address] [place], [address] GFR/1.73 sq M.predicted among non-blacks MDRD (S/P/Bld) [Vol rate/Area] 83 mL/min/{1.73_m2} Normal >60 [facility] Comment on above: Result Comment: mL/m in/1.73m2 CKD-EPI Creatinine Equation (2020) Performed By: #### L 100.0100, L500.2500 ####[facility] [address] [place], [address] Glucose [Mass/Vol] 102 mg/dL High 70-99 [facility] Comment on above: Performed By: #### L 100.0100, L500.2500 ####[facility] [address] [place], [address] Potassium [Moles/Vol] 3.9 mmol/L Normal 3.3-5.1 [facility] Comment on above: Performed By: #### L 100.0100, L500.2500 ####[facility] [address] [place], [address] Sodium [Moles/Vol] 139 mmol/L Normal 133-145 [facility] Comment on above: Performed By: #### L 100.0100, L500.2500 ####[facility] [address] [place], [address] Urea nitrogen [Mass/Vol] 16 mg/dL Normal 4-19 [facility] Comment on above: Performed By: #### L 100.0100, L500.2500 ####[facility] [address] [place], [address] Basophil percentageOrdered B y: Olga Johnson on 03-12-2025 Basophils/100 WBC (Bld) 0.5 % 0-1 [facility] CBC W/Diff, Automatedon 02-24 Absolute Lymph 4.95 X10 3/uL High 0.83-4.51 [facility] Comment on above: Performed By: #### L 100.0100, L500.2500 #### [facility] [address] [place], [address] Absolute Neut 3.9 X10 3/uL Normal 2.0-7.7 [facility] Comment on above: Performed By: #### L 100.0100, L500.2500 #### [facility] [address] [place], [address] Basophils/100 WBC (Bld) 0.5 % Normal 0-1 [facility] Comment on above: Performed By: #### L 100.0100, L500.2500 #### [facility] [address] [place], [address] Eosinophils/100 WBC (Bld) 1.2 % Normal 0-5 [facility] Comment on above: Performed By: #### L 100.0100, L500.2500 #### [facility] [address] [place], [address] Erythrocyte distribution width (RBC) [Ratio] 12.4 % Normal 11.6-14.6 [facility] Comment on above: Performed By: #### L 100.0100, L500.2500 #### [facility] [address] [place], [address] Hematocrit (Bld) [Volume fraction] 43.3 % Normal 40-54 [facility] Comment on above: Performed By: #### L 100.0100, L500.2500 #### [facility] [address] [place], [address] Hemoglobin (Bld) [Mass/Vol] 15.2 g/dL Normal 13.0-16.5 [facility] Comment on above: Performed By: #### L 100.0100, L500.2500 #### [facility] [address] [place], [address] IG% 0.200 Normal 0.0-0.9 [facility] Comment on above: Result Comment: IG% - Immature Granulocytes (promyelocytes, myelocytes and metamyelocytes) > 1% indicates that a LEFT SHIFT is Present. Performed By: #### L 100.0100, L500.2500 #### [facility] [address] [place], [address] Lymphocytes/100 WBC (Bld) 50.4 % High 19-41 [facility] Comment on above: Performed By: #### L 100.0100, L500.2500 #### [facility] [address] [place], [address] MCH (RBC) [Entitic mass] 30.8 pg Normal 27.0-32.0 [facility] Comment on above: Performed By: #### L 100.0100, L500.2500 #### [facility] [address] [place], [address] MCHC (RBC) [Mass/Vol] 35.1 g/dL Normal 32-36 [facility] Comment on above: Performed By: #### L 100.0100, L500.2500 #### [facility] [address] [place], [address] MCV (RBC) [Entitic vol] 87.7 fL Normal 80-94 [facility] Comment on above: Performed By: #### L 100.0100, L500.2500 #### [facility] [address] [place], [address] Monocytes/100 WBC (Bld) 7.7 % Normal 0-10 [facility] Comment on above: Performed By: #### L 100.0100, L500.2500 #### [facility] [address] [place], [address] Neutrophils/100 WBC (Bld) 40.0 % Low 47-70 [facility] Comment on above: Performed By: #### L 100.0100, L500.2500 #### [facility] [address] [place], [address] Nucleated RBC (Bld) [#/Vol] 0 10*3/uL Normal 0-5 [facility] Comment on above: Performed By: #### L 100.0100, L500.2500 #### [facility] [address] [place], [address] Platelet mean volume (Bld) [Entitic vol] 9.7 fL Normal 6.2-12.0 [facility] Comment on above: Performed By: #### L 100.0100, L500.2500 #### [facility] [address] [place], [address] Platelets (Bld) [#/Vol] 272 10*3/uL Normal 150-450 [facility] Comment on above: Performed By: #### L 100.0100, L500.2500 #### [facility] [address] [place], [address] RBC (Bld) [#/Vol] 4.94 10*6/uL Normal 4.6-6.2 [facility] Comment on above: Performed By: #### L 100.0100, L500.2500 #### [facility] [address] [place], [address] RDW SD 39.6 fl Normal 35.1-43.9 [facility] Comment on above: Performed By: #### L 100.0100, L500.2500 #### [facility] [address] [place], [address] WBC (Bld) [#/Vol] 9.8 10*3/uL Normal 4.4-11.0 [facility] Comment on above: Performed By: #### L 100.0100, L500.2500 #### [facility] [address] [place], [address] Carbon dioxide, total [Moles /volume] in Central venous bloodOrdered By: Olga Johnson on 03-12-2025 CO2 [Moles/Vol] 19.9 mmol/L Low 21.0-32.0 [facility] Chloride assayOrdered By: Myla Johnson on 03-12-2025 Chloride [Moles/Vol] 101 mmol/L 98-108 [facility] Emergency Department Summary on 03-12-2025 Emergency Department Summary [facility] Medical Records Department [address] [place] [address] Emergency Department Summary 03/12/25 MR#: [id number] Acct: [id number] Name: JAKOB MORRELL Rep #: [id number] : 1995 29 From: Olga ORTIZ PCP: Elyse Christie Status:ADM APOLINAR Location: NV3 [id number] HPI History of Present Illness Chief Complaint: Laceration Narrative Narrative: Patient presents today with a laceration to his right foot that he sustained this afternoon while mowing the lawn. He reports that he slipped and his foot went underneath the lawnmower getting caught on the blade. He was wearing tennis shoes. He is unsure of his last tetanus update. He is not on any blood thinners. He denies any other injury. [facility] Medical History Bicuspid aortic valve High blood cholesterol Medical History no medical history Home Medications ???Medication ???Instructions ???Recorded ???Last Taken ???Type multivitamin (Daily Multi-Vitamin 1 tab PO DAILY supplement 5 03/12/25 History tablet) omega 0-lza-rrd-fish oil 1,200 mg 2 cap PO DAILY supplement 5 03/11/25 History (144 mg-216 mg) capsule (Fish Oil) sumatriptan succinate 50 mg tablet 50 mg PO PRN PRN migraine headac he 03/12/25 Unknown History Allergy/AdvReac Type Severity Reaction Status Date / Time No Known Allergies Allergy Verified 03/12/25 15:38 Family History no significant family his Surgical History no surgical history Social History Smoking Status: Never smoker ROS ROS ED Constitutional Constitutional ED: Denies chills or fever(s) Cardiovascular Cardiovascular: Denies chest pain Respiratory/Chest Respiratory/Chest: Denies dyspnea Musculoskeletal Musculoskeletal: Reports arthralgias Integumentary Reports laceration Neurologic Neurologic: Denies paresthesias EXAM Physical Exam Const Vital Signs: 03/12/25 15:35 03/12/25 16:35 03/12/25 16:57 Temperature 97.9 F Temperature Source Temporal Pulse Rate 112 H 71 79 Respiratory Rate 24 H 11 L 19 H Respiratory Pattern Blood Pressure 94/64 113/84 H Blood Pressure Mean 74 93 Blood Pressure Source Blood Pressure Position Blood Pressure Location Baseline BP Pulse Ox 98 100 100 Oxygen Delivery Method Room Air Room Air Room Air 03/12/25 17:00 03/12/25 18:00 03/12/25 18:10 Temperature 97.9 F Temperature Source Pulse Rate 82 92 92 Respiratory Rate 18 14 14 Respiratory Pattern Blood Pressure 108/83 H 100/85 H 100/85 H Blood Pressure Mean 91 90 90 Blood Pressure Source Blood Pressure Position Blood Pressure Location Baseline BP Pulse Ox 100 99 99 Oxygen Delivery Method Room Air Room Air 03/12/25 20:22 03/12/25 21:00 03/12/25 21:03 Temperature 97.9 F 97 F L 97 F L Temperature Source Temporal Pulse Rate 92 101 H 112 H Respiratory Rate 14 16 16 Respiratory Pattern Normal Blood Pressure 100/85 H 117/77 117/77 Blood Pressure Mean 90 Blood Pressure Source Monitor Blood Pressure Position Semi-Fowlers Blood Pressure Location Left Arm Baseline BP 100/85 Pulse Ox 99 97 96 Oxygen Delivery Method Room Air 03/12/25 21:05 03/12/25 21:10 03/12/25 21:15 Temperature Temperature Source Pulse Rate 112 H 108 H 104 H Respiratory Rate 16 16 16 Respiratory Pattern Blood Pressure 127/72 H 126/80 H 131/85 H Blood Pressure Mean 90 95 100 Blood Pressure Source Monitor Monitor Monitor Blood Pressure Position Semi-Fowlers Semi-Fowlers Semi-Fowlers Blood Pressure Location Left Arm Left Arm Left Arm Baseline BP 100/85 100/85 100/85 Pulse Ox 94 95 93 Oxygen Delivery Method Room Air Room Air Room Air Positive well nourished, well developed and no apparent distress General Appearance ED: well developed HEENT Reports normocephalic and head/scalp atraumatic Mouth ED: Yes moist mucous membranes normal Eyes PERRL and EOMs intact bilaterally Neck full ROM and supple Chest Wall inspection of chest normal Resp normal respiratory effort and clear to auscultation bilaterally Cardio regular rate and regular rhythm Back/Spine normal ROM and normal to inspection Extremity Extremity Narrative: Large full-thickness complex laceration extending from the plantar aspect of the left big toe through the webspace between the 1st and 2nd toes. Complete flexor tendon laceration. He does have intact cap refill and sensation. Minimal active bleeding. Neuro oriented x3, CN's II-XII intact bilaterally, moves all extremities, no focal motor deficits and no sensory deficits noted Sensorium / Orienta (more content not included)... Normal [facility] Eosinophil percentageOrdered By: Olga Johnson on 03-12-2025 Eosinophils/100 WBC (Bld) 1.2 % 0-5 [facility] Erythrocyte distribution wid th ratioOrdered By: Olga Johnson on 03-12-2025 Erythrocyte distribution width (RBC) [Ratio] 12.4 % 11.6-14.6 [facility] Erythrocyte distribution wid th standard deviationOrdered By: Olga Johnson on 03-12-2025 Erythrocyte distribution width (RBC) [Ratio] 39.6 fl 35.1-43.9 [facility] Foot 2 Viewson 03-12-2025 Foot 2 Views [facility] Imaging Services [address] [place], [place] [address] Foot 2 Views MR#: [id number] Acct: [id number] Name: JAKOB MORRELL Rep #: [id number] : 1995 M 29 From: Lester Sandhu DO PCP: Elyse Christie Status: ADM APOLINAR Study: Foot 2 Views Date of Exam: 03/12/25 Exam# [id number] Ordering Dr: David Javier DPM PROCEDURE: FOOT 2 VIEWS 03/12/2025 REASON FOR EXAM: LACERATION REPAIR, POSSIBLE AMPUTATION TECHNIQUE: 2 fluoroscopic views of the right foot are obtained. Fluoro time of 3 minutes and 41 seconds. COMPARISON: Right foot radiograph from 03/12/2025. FINDINGS: There are postsurgical changes with surgical wires extending through the 1st digit stabilizing the comminuted 1st distal phalanx fracture. RAD/Foot 2 Views IMPRESSION: As above. 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 Colby Barton MD on 03/14/25 at 1313 Dislocation at the 1st metatarsophalangeal joint. [facility] 03/14/25 1313 Date cc: Elyse Christie; DIANA Nieto * Signed EXAM: XR Right Foot, 2 Views CLINICAL INDICATION: LACERATION TECHNIQUE: Frontal and lateral views of the right foot. COMPARISON: No relevant prior studies available. FINDINGS: BONES/JOINTS: Probable comminuted fracture and laceration of the 1st distal phalanx. Soft tissue swelling. No dislocation. SOFT TISSUES: No radiopaque foreign body. RAD/Foot 2 Views IMPRESSION: 1. No radiopaque foreign body. 2. Probable comminuted fracture and laceration of the 1st distal phalanx. Soft tissue swelling. 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 Normal [facility] Glomerular filtration rate ( GFR) estimation/1.73 sq m using serum, plasma, or whole bOrdered By: Olga Jhonson on 03-12-2025 GFR/1.73 sq M.predicted among non-blacks MDRD (S/P/Bld) [Vol rate/Area] 83 mL/min/{1.73_m2} >60 [facility] Comment on above: mL/min/1.73m2 CKD-EP I Creatinine Equation (2020) Hematocrit Auto (Bld) [Volum e fraction]Ordered By: Olga Johnson on 03-12-2025 Hematocrit (Bld) [Volume fraction] 43.3 % 40-54 [facility] Hemoglobin measurementOrdere d By: Olga Johnson on 03-12-2025 Hemoglobin (Bld) [Mass/Vol] 15.2 g/dL 13.0-16.5 [facility] Immature granulocytes/100 WB C Auto (Bld)Ordered By: Olga Johnson on 03-12-2025 Immature granulocytes/100 WBC (Bld) 0.200 % 0.0-0.9 [facility] Comment on above: IG% - Immature Granu locytes (promyelocytes, myelocytes and metamyelocytes) > 1% indicates that a LEFT SHIFT is Present. MCV (mean corpuscular volume ) determinationOrdered By: Olga Johnson on 03-12-2025 MCV (RBC) [Entitic vol] 87.7 fL 80-94 [facility] MR/POSTOP.ANEon 03-12-2025 MR/POSTOP.[facility] Medical Records Department [address] [place] [address] Anesthesia Postop Eval I 03/12/252101 MR#: [id number] Acct: [id number] Name: JAKOB MORRELL Rep #: [id number] : 1995 29 From: Monroe Mills MD PCP: Elyse Christie Status:REG SDC Y Race: C Location: [facility] Anesthesia: Postop Eval I Current Vital Signs Temperature: 97 F Pulse Rate: 112 Blood Pressure: 117/77 Respiratory Rate: 16 Pulse Ox: 96 Assessment Airway patent: Yes Spontaneous unlabored respirations: Yes nausea: No Vomiting: No Anesthesia Complication: No Fluid Hydration Crystalloid volume administer (ml): 1,500 Total IV fluid infused: 1,500 Progress Note Anesthesia document: Postop Eval 1 completed: Yes 03/12/252102 Date Monroe Mills MD Cosigner Signature: Date CC: Signed Normal [facility] MR/[id number] 03-12-2025 MR/POSTOPAN2 [facility] Medical Records Department [address] [place] [address] Anesthesia Postop Eval II 03/12/252102 MR#: [id number] Acct: [id number] Name: PORSCHEJAKOB BRIGETTE Rep #: [id number] : 1995 29 From: Monroe Mills MD PCP: Elyse Christie Status:REG SDC Y Race: C Location: [facility] Anesthesia Postop Eval I Sum Postop Eval Completion status Anesthesia document: Postop Eval 1 completed: Yes Anesthesia Postop Eval I Summary Anesthesia Postop Eval I Summary: Anesthesia Postop Eval I: Assessment Summary Airway patent Yes 03/12/25 21:03 Spontaneous unlabored Yes 03/12/25 21:03 respirations Mental status nausea No 03/12/25 21:03 Vomiting No 03/12/25 21:03 Anesthesia Postop Eval I: Fluid Summary Crystalloid volume administer 1,500 03/12/25 21:03 (ml) Colloids volume administered ( ml) Blood Product volume administered (ml) Total IV fluid infused 1,500 03/12/25 21:03 Anesthesia Postop Eval I: Summary Notes Anesthesia Complication No 03/12/25 21:03 Anesthesia Complication Comment: Post-operative progress note Anesthesia: Postop Eval II Evaluation Mental status: Awake Pain Level: 0 nausea: No Vomiting: No 03/12/252103 Date Monroe Grierigncatalina Signature: Date CC: Signed Normal [facility] Mean corpuscular hemoglobin (MCH) determinationOrdered By: Olga Johnson on 03-12-2025 MCH (RBC) [Entitic mass] 30.8 pg 27.0-32.0 [facility] Mean corpuscular hemoglobin concentration (MCHC) determinationOrdered By: Olga Johnson on 03-12-2025 MCHC (RBC) [Mass/Vol] 35.1 g/dL 32-36 [facility] Mean platelet volume determi nationOrdered By: Olga Johnson on 03-12-2025 Platelet mean volume (Bld) [Entitic vol] 9.7 fL 6.2-12.0 [facility] Monocyte percentageOrdered B y: Olga Johnson on 03-12-2025 Monocytes/100 WBC (Bld) 7.7 % 0-10 [facility] Neutrophil percentageOrdered By: Olga Johnson on 03-12-2025 Neutrophils/100 WBC (Bld) 40.0 % Low 47-70 [facility] Nucleated red blood cell per centageOrdered By: Olga Barrosoerson on 03-12-2025 Nucleated RBC/100 WBC (Bld) [Ratio] 0 % 0-5 [facility] Operative Reporton 5 Operative Report [facility] Medical Records Department [address] [place] [address] Operative Report 03/12/25 1805 MR#: [id number] Acct: [id number] Name: JAKOB MORRELL Rep #: [id number] : 1995 29 From: David Javier DPM PCP: Elyse Christie Status:REG [facility] Location: [facility] Problems Associated Problem List Diagnoses (1) Onycholysis: (2) Fracture of distal phalanx of toe of right foot: (3) Laceration of muscle and tendon of long flexor muscle of toe at ankle and foot level, right foot, initial encounter: (4) Traumatic dislocation of right great toe: (5) Laceration of right foot: Operative Report (Standard) Operative Information Date of Procedure: 03/12/25 Pre-Operative Diagnosis: 1. Open laceration, right foot 2. Lacerated flexor tendon, right foot 3. Onycholysis, right hallux 4. Traumatic dislocation of toe, right foot 5. 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 Morrell is a 29-year-old male who was admitted to [facility] for open laceration secondary to a lawnmower injury today at approximately 3:30 PM in the afternoon on 03/12/2025. When the patient sustained injury he reported to [facility] for evaluation and treatment. I was consulted for concern of lacerated tendon as well as for the large open laceration exposing the first metatarsal head on the right foot. Upon interviewing the patient there showed evidence of a large traumatic laceration with exposed first metatarsal phalangeal joint as well as debris in the wound. Due to the nature of the wound I educated the patient on washout and pinning as well as amputation. Patient would like to move forward with pinning and trying to save the toe especially because he is concerned how his walking/gait and may be disrupted if he loses the toe. He is aware that even with successful surgery of getting the toe back into anatomic position with the joint he still may lose the toe due to decreased blood flow. All risk and benefits were discussed with the patient and his in great detail. We move forward with the above procedure as discussed. Due to open laceration and dislocation of the first metatarsophalangeal joint the right foot it was deemed necessary at this time to take patient the operating room the performed above procedure to help get his toe back into anatomic position and pin it and help relieve his constant pain and save his toe. The nature of the problem, anticipated procedures, postop recovery/convalences and risk/complications include but not limited to infection, wound healing complications, digital amputation, hypertrophic scarring, numbness, tingling, chronic pain, CRPS, over and under correction, recurrence of deformity, DVT and or PE and the need for further surgery have been discussed in great detail with the patient. All questions have been answered to the patient's satisfaction. There are no guarantees given as to the outcome of the procedure. Description of Procedure: Under mild sedation, the patient was brought into the operating room and placed on the operating table in supine position. Once the patient was under general anesthesia with endotracheal tube, the right lower extremity was blocked using approximately 30 cc 0.5% Marcaine plain. No tourniquet was used for this case. Next, the right lower extremity was prepped and draped in normal aseptic manner. Next, a timeout was then undertaken verifying the correct patient, extremity, visibility of preoperative markings, availability of the equipment. Procedure #1: Nail avulsion, right hallux Next attention was directed to the right hallux that showed evidence of subungual hematoma and onycholysis. Using a rongeur the nail avulsion was performed without incident and the nail was (more content not included)... Normal [facility] Platelet countOrdered By: Myla Johnson on 03-12-2025 Platelets (Bld) [#/Vol] 272 10*3/uL 150-450 [facility] Potassium measurement (mass/ volume)Ordered By: Olga Johnson on 03-12-2025 Potassium (Unsp spec) [Mass/Vol] 3.9 mmol/L 3.3-5.1 [facility] RBC Auto (Bld) [#/Vol]Ordere d By: Olga Johnson on 03-12-2025 RBC (Bld) [#/Vol] 4.94 10*6/uL 4.6-6.2 [facility] Serum creatinine measurement (mass/volume)Ordered By: Olga Johnson on 03-12-2025 Creatinine [Mass/Vol] 1.21 mg/dL High 0.70-1.20 [facility] Serum glucose measurement (m ass/volume)Ordered By: Olga Johnson on 03-12-2025 Glucose [Mass/Vol] 102 mg/dL High 70-99 [facility] Serum or plasma calcium rsoemarie urement (mass/volume)Ordered By: Olga Johnson on 03-12-2025 Calcium [Mass/Vol] 9.8 mg/dL 7.6-11.0 [facility] Serum or plasma urea nitroge n measurement (mass/volume)Ordered By: Olga Johnson on 03-12-2025 Urea nitrogen [Mass/Vol] 16 mg/dL 4-19 [facility] Sodium levelOrdered By: Alejandro Johnson on 03-12-2025 Sodium [Moles/Vol] 139 mmol/L 133-145 [facility] White blood cell (WBC) count Ordered By: Olga Johnson on 03-12-2025 WBC (Bld) [#/Vol] 9.8 10*3/uL 4.4-11.0 [facility] CNOVon 06-18-2017 CNOV Office Visit (FAMPST) OSWALDO MORRELL ([id number]) 1995 MDate Time Provider Department06/18/17 7:50 AM Santana MEEKS FAMPST During your visit today, we recorded the following information about you: Pulse Blood pressure Weight Height 79/minute 100/78 71.8 kg 1.775 Jamison Lopez Ma 06/18/2017 7:42 AM [facility] [id number] HOURS: Lab is open 7:30am to 6:00pm , 7:30am to 5:00pm Fridays and open8:00am-12:00pm on Saturdays.PHARMACY HOURS: Friday through Friday 8:00am - 6:00pm.Lab Orders 365 days after they are entered. If your lab orders ,you may be required to wait in the lab while they are reinstatedSTANDING ORDERS are recurring orders with an expiration date. The intervalwill indicate how often the test should be completed.FASTING LAB means nothing to eat or drink (except water) 10-12 hours beforeyour blood is drawn.CT MRI IVP If you have one of these radiology exams ordered along with bloodwork, please complete the blood work at least one day prior to the scheduledexam.[facility] HOURSHOURS OF OPERATIONS Friday and Friday 8:00am to 4:00pm, Friday through Friday6:00am to 9:00pm. Express care is for patients 2 years and older.[facility]-WALK IN CLINICHOURS OF OPERATIONS Friday and Friday 8:00am to 4:00pm, Friday through Friday6:00am to 9:00pm. The walk in clinic is for patients 6 months and older.[facility] WALK-IN HOURSHOURS OF OPERATIONS Friday and Friday 9:00am to 4:00pm, Friday through Friday6:00am to 9:00pm. The walk in clinic is for patients 2 years and older.For Express Care LOCATIONS, HOURS OF OPERATION and CURRENT WAIT TIMES, visitthe following [email or web address][ [email or web address]][0]=Express%20Care %[email or web address]-amp; for detailsV Jarrod Meeks DO 06/18/2017 9:43 AM SignedCC: Preventative Health ExamS: 21 year old male presents for a preventative health exam.Pre-existing / Chronic conditions:ACTIVE PROBLEM LISTSystolic Murmur - 06/18/2017Patient concerns:Overall, the patient has no acute complaints at this time.*He has a family history of a ANDquot;heart issueANDquot; and a personal history ofa ANDquot;valve issueANDquot;. He cannot remember the names of these. But he hasbeen getting echocardiograms every 2 years or so for the last 10 years.SOCIAL:Social History Marital status: Single Spouse name: Years of education: Number of children:Social History Main Topics Smoking status: Never Smoker Alcohol use: Yes Comment: Rarely Drug use: No Sexual activity: Yes Partners with: Female control/protection: Condom- PHQ-2: negativeFAMILY:- Colon cancer: none- CVD: FatherROS:PAIN ASSESSMENT: see HPIGENERAL: No weight loss, malaise or fevers.HEENT: Negative for frequent or significant headaches, No changes in hearing orvisionRESPIRATORY: Negative for cough, wheezing or shortness of breathCARDIOVASCULAR: Negative for chest pain, leg swelling or palpitations.GI: No nausea, vomiting, or diarrheaGU: No history of dysuria, frequency or incontinenceMUSCULOSKELE GELA: Negative for joint pain or swelling, back pain or muscle pain.NEURO: No history of headaches, syncope or seizuresThe remainder of the review of systems is negative.O:Physical ExamBP 100/78 Pulse 79 Ht 177.5 cm (5' 9.88ANDquot;) Wt 71.8 kg (158 lb 4.8 oz) BMI 22.79 kg/q0WRSNZRG: Alert, no distress, cooperativeSKIN: Skin color, texture, turgor normal. No rashes or lesions.HEENT- EYES: PERRLA, EOMI- EARS: External ears normal, canals clear- NOSE: Nares normal. No rhinorrhea or sinus tenderness- OROPHARYNX: Mucosa moist. Soft palate, uvula, and tonsils normalNECK: FROM, suppleLUNGS: Lungs clear to auscultation, No dullness to percussionCARDIOVASCULAR - CARDIAC: RRR, Normal S1 and S2; +2 systolic murmur heard best in the aorticarea. No thrills, rubs or gallops.- PULSES: Radial and posterior tibial pulses normalABDOMEN: BS normal, Abdomen soft, non-tender, No masses or hepatosplenomegalyEXTREM ITIES: No peripheral edemaPSYCH: AANDamp;Ox3, Mood and affect normal, Memory normal.A/P:1. Well adult exam - ICD9: V70.0, ICD10: Z00.00 (primary diagnosis)- See below. Follow-up in one year.Preventative Services:Immunizations: Tetanus todayCounseling:- Discussed skin cancer risk reduction along with melanoma detection education- ABCs of melanomaScreening:- Obesity screen: Body mass index is 22.79 kg/(m2).- Blood pressure is Normal today.- Low risk for developing Diabetes- 10 year ASCVD risk: TBD- Low risk for asymptomatic STI's including Syphilis, Hepatitis B and C, and HIV2. Systolic murmur - ICD9: 785.2, ICD10: R01.1- We will obtain outside records. He does have a +2 systolic murmur today.He is otherwise asymptomatic. Obtain 2-D echo as he says he has not had one lizette few years.- ECHO3. Need for Tdap vaccination - ICD9: V06.1, ICD10: Z23- TDAP VACCINE AGE 7+ IM4. Screening cholesterol level - ICD9: V77.91, ICD10: Z13.220- LDL CHOLESTEROL DIR- HDL CHOLESTEROL BLD- CHOLESTEROL BLDV Evelin Barton Provider: SELF [200]Allergies As of Date: 06/18/2017(Not on File)Date Reviewed: 06/18/2017Reviewed by: Santana Meeks - Fully AssessedReason for Visit: Physical [83] Cmt: Heart issue. Irregular heart beat Establish Care [42] Cmt: Would like to establish care. Dr. Jean Paul Starkey, [facility]. Medical records request.Reason For Visit History RecordedPrimary Visit Diagnosis:Well adult exam [Z00.00] Other Visit Diagnoses:Systolic murmur [R01.1] Need for Tdap vaccination [Z23] Screening cholesterol level [Z13.220]Order(s):TDAP VACCINE AGE 7+ IM [78657AZB] Order #: [id number] LDL CHOLESTEROL DIR [SQLDLDCT] Order #: [id number] FUTURE HDL CHOLESTEROL BLD [SQHDL1] Order #: [id number] FUTURE CHOLESTEROL BLD [SQCHOL] Order #: [id number] FUTURE ECHO [848397] Order #: [id number]: 1 FUTUREProblem List As Of Date 06/18/2017 Noted Resolved Systolic murmur [R01.1] INVALID FOR* Other instructions from your clinician: [facility] FACTS [phone] LAB HOURS: Lab is open 7:30am to 6:00pm , 7:30am to 5:00pm Fridays and open 8:00am-12:00pm on Saturdays. PHARMACY HOURS: Friday through Friday 8:00am - 6:00pm. Lab Orders 365 days after they are entered. If your lab orders , you may be required to wait in the lab while they are reinstated STANDING ORDERS are recurring orders with an expiration date. The interval will indicate how often the test should be completed. FASTING LAB means nothing to eat or drink (except water) 10-12 hours before your blood is drawn. CT MRI IVP If you have one of these radiology exams ordered along with blood work, please complete the blood work at least one day prior to the scheduled exam. [facility] HOURS HOURS OF OPERATIONS Friday and Friday 8:00am to 4:00pm, Friday through Friday 6:00am to 9:00pm. Express care is for patients 2 years and older. [facility]-WALK IN CLINIC HOURS OF OPERATIONS Friday and Friday 8:00am to 4:00pm, Friday through Friday 6:00am to 9:00pm. The walk in clinic is for patients 6 months and older. [facility] WALK-IN HOURS HOURS OF OPERATIONS Friday and Friday 9:00am to 4:00pm, Friday through Friday 6:00am to 9:00pm. The walk in clinic is for patients 2 years and older. For Express Care LOCATIONS, HOURS OF OPERATION and CURRENT WAIT TIMES, visit the following link [email or web address][type s][0]=Express%20Care%20C [facility] for detailsDisposition: Return in about 1 year (around 06/18/2018).Follow-up and Disposition History RecordedLetter Leonardo Morrell for the Release of Medical InformationFrom Other Healthcare FacilitiesPatient's Name: Jakob Morrell #: [id number] #: [id number] Date of : 1995Telephone Number: [phone] (home) Address: [address] [place], [place] [address] Address of Physician:Name: Street: [facility]: __ State: Zip: [place] Telephone #: Yuliana son for Disclosure: (Reas on for disclosure must be completed prior to processing)Past Dates of Treatment: ____Release Medical Information to: MAIL INFORMATION TO:[facility] [place], [place] [address]Hhedveqwu: [phone] i hereby authorize t o release the health informationindicated below that is contained in my patient records to [facility]. I understand and acknowledge that this may includetreatment for physical and mental illness, alcohol/drug abuse, and/orHIV/AIDS test results or diagnoses. This authorization does not includepermission to release outpatient Psychotherapy Notes (*) as defined below.The release of Psychotherapy Notes requires a separate authorization.*Psychothe rapy Notes are defined as notes that document private, joint,group, or family counseling sessions that are from the rest of apatient?s medical record. Emergency Department Reports Pathology Reports Discharge Summary Laboratory Reports History AND Physical EMG Reports EKGs O perative Reports Physical/Oc cupations Therapy Report Other (Specify)This consent is subject to revocation at any time except to the extent theaction has been taken thereon.This authorization and consent will one year from the date ofauthorization written below.Your health care (or payment for care) will not be affected by whether or notyou sign this authorization. Once your health care information is released,redisclosure of your health care information by the Recipient may no longerbe protected by law.Signature of Patient/Legal Guardian: Printed Name: Date: _Relationship if other than Patient: If other than patient's signature, a copy of legal paperwork verifying thepatient's personal arborist representative MUST accompany the request (i.e.. Courtappointed guardian, durable power attorney law clerk for health care). For a deceasedpatient: A certificate coupled with executor or assistant administrator of estatepaperwork must accompany authorization. Exception: parent signing for patientunder the age of 18.For a patient, a court entry or order appointing a fiduciary,executor, or assistant administrator or letters of appointment received from ProbateCourt must accompany an authorization signed by the ,ed individual. If theestate has not been probated, a certificate is required coupled withthe documents naming the assistant administrator or executor of the estate. Revision:11/18/2011Letter TextJakob Morrell for the Release of Medical InformationFrom Other Healthcare FacilitiesPatient's Name: Jakob Morrell #: [id number] #: [id number] Date of : 1995Telephone Number: [phone] (home) Address: [address] [place], [place] [address]Current Address of Physician:Name: Street: City: __ State: Zip: [facility] n's Telephone #: Alicea son for Disclosure: (Reas on for disclosure must be completed prior to processing)Past Dates of Treatment: ____Release Medical Information to: MAIL INFORMATION TO:[facility]. [facility] [place], [place] [address]Ucsbyotil: [phone] i hereby authorize t o release the health informationindicated below that is contained in my patient records to [facility]. I understand and acknowledge that this may includetreatment for physical and mental illness, alcohol/drug abuse, and/orHIV/AIDS test results or diagnoses. This authorization does not includepermission to release outpatient Psychotherapy Notes (*) as defined below.The release of Psychotherapy Notes requires a separate authorization.*Psychothe rapy Notes are defined as notes that document private, joint,group, or family counseling sessions that are from the rest of apatient?s medical record. Emergency Department Reports Pathology Reports Discharge Summary Laboratory Reports History AND Physical EMG Reports EKGs O perative Reports Physical/Oc cupations Therapy Report Other (Specify)This consent is subject to revocation at any time except to the extent theaction has been taken thereon.This authorization and consent will one year from the date ofauthorization written below.Your health care (or payment for care) will not be affected by whether or notyou sign this authorization. Once your health care information is released,redisclosure of your health care information by the Recipient may no longerbe protected by law.Signature of Patient/Legal Guardian: Printed Name: Date: _Relationship if other than Patient: If other than patient's signature, a copy of legal paperwork verifying thepatient's personal arborist representative MUST accompany the request (i.e.. Courtappointed guardian, durable power attorney law clerk for health care). For a deceasedpatient: A certificate coupled with executor or assistant administrator of estatepaperwork must accompany authorization. Exception: parent signing for patientunder the age of 18.For a patient, a court entry or order appointing a fiduciary,executor, or assistant administrator or letters of appointment received from [facility] must accompany an authorization signed by the na,ed individual. If theestate has not been probated, a certificate is required coupled withthe documents naming the assistant administrator or executor of the estate. Revision:11/18/2011Yeison ter Number: [id number] Status:Closed by SLAVA MEEKS DO on 06/18/17 Normal [facility] Cholesterolon 06-18-2017 Cholesterol 154 mg/dL Normal 100-199 [facility] Comment on above: Performed By: #### C HOL, HDL1, LDLDCT ####[facility] [address] [place], [place] [phone] HDL Cholesterolon 06-18-2017 HDL Cholesterol 41 mg/dL Low >45 [facility] Comment on above: Performed By: #### C HOL, HDL1, LDLDCT ####[facility] [address] [place], [place] [phone] LDL-Chol, Directon 7 LDL-Chol, Direct 89 mg/dL Normal 60-129 [facility] Comment on above: Performed By: #### C HOL, HDL1, LDLDCT ####[facility] [address] [place], [place] [phone] PROGRESSon 06-18-2017 PROGRESS HNO ID: [id number]: Santana MeeksService: (none)Author Type: PhysicianType: Progress NotesFiled: 06/18/2017 9:43 AMNote Text:CC: Preventative Health ExamS: 21 year old male presents for a preventative health exam.Pre-existing / Chronic conditions:ACTIVE PROBLEM LISTSystolic Murmur - 06/18/2017Patient concerns:Overall, the patient has no acute complaints at this time.*He has a family history of a heart issue and a personal history of avalve issue. He cannot remember the names of these. But he has beengetting echocardiograms every 2 years or so for the last 10 years.SOCIAL:Social History Marital status: Single Spouse name: Years of education: Number of children:Social History Main Topics Smoking status: Never Smoker Alcohol use: Yes Comment: Rarely Drug use: No Sexual activity: Yes Partners with: Female control/protection: Condom- PHQ-2: negativeFAMILY:- Colon cancer: none- CVD: FatherROS:PAIN ASSESSMENT: see HPIGENERAL: No weight loss, malaise or fevers.HEENT: Negative for frequent or significant headaches, No changes inhearing or visionRESPIRATORY: Negative for cough, wheezing or shortness of breathCARDIOVASCULAR: Negative for chest pain, leg swelling or palpitations.GI: No nausea, vomiting, or diarrheaGU: No history of dysuria, frequency or incontinenceMUSCULOSKELE GELA: Negative for joint pain or swelling, back pain or musclepain.NEURO: No history of headaches, syncope or seizuresThe remainder of the review of systems is negative.O:Physical ExamBP 100/78 Pulse 79 Ht 177.5 cm (5' 9.88) Wt 71.8 kg (158 lb 4.8 oz) BMI 22.79 kg/c6EPVFYZX: Alert, no distress, cooperativeSKIN: Skin color, texture, turgor normal. No rashes or lesions.HEENT- EYES: PERRLA, EOMI- EARS: External ears normal, canals clear- NOSE: Nares normal. No rhinorrhea or sinus tenderness- OROPHARYNX: Mucosa moist. Soft palate, uvula, and tonsils normalNECK: FROM, suppleLUNGS: Lungs clear to auscultation, No dullness to percussionCARDIOVASCULAR - CARDIAC: RRR, Normal S1 and S2; +2 systolic murmur heard best in theaortic area. No thrills, rubs or gallops.- PULSES: Radial and posterior tibial pulses normalABDOMEN: BS normal, Abdomen soft, non-tender, No masses orhepatosplenomegalyEXTR EMITIES: No peripheral edemaPSYCH: AANDOx3, Mood and affect normal, Memory normal.A/P:1. Well adult exam - ICD9: V70.0, ICD10: Z00.00 (primary diagnosis)- See below. Follow-up in one year.Preventative Services:Immunizations: Tetanus todayCounseling:- Discussed skin cancer risk reduction along with melanoma detectioneducation - ABCs of melanomaScreening:- Obesity screen: Body mass index is 22.79 kg/(m2).- Blood pressure is Normal today.- Low risk for developing Diabetes- 10 year ASCVD risk: TBD- Low risk for asymptomatic STI's including Syphilis, Hepatitis B and C,and HIV2. Systolic murmur - ICD9: 785.2, ICD10: R01.1- We will obtain outside records. He does have a +2 systolic murmurtoday. He is otherwise asymptomatic. Obtain 2-D echo as he says he hasnot had one in a few years.- ECHO3. Need for Tdap vaccination - ICD9: V06.1, ICD10: Z23- TDAP VACCINE AGE 7+ IM4. Screening cholesterol level - ICD9: V77.91, ICD10: Z13.220- LDL CHOLESTEROL DIR- HDL CHOLESTEROL BLD- CHOLESTEROL BLDV Jarrod Boytim, DO Normal [facility] Vital Signs Date Time Vital Sign Value Performing Clinician Derrick hinds 03-15-2025 14:00-0400 Body temperature 98.9 [degF] Dr. Monroe Polk DO Work Phone: [facility] 03-15-2025 14:00-0400 Diastolic blood pressure 76 mm[Hg] Dr. Monroe Polk DO Work Phone: [facility] 03-15-2025 14:00-0400 Heart rate 83 /min Dr. Monore Polk DO Work Phone: [facility] 03-15-2025 14:00-0400 Respiratory rate 16 /min Dr. Monroe Polk DO Work Phone: [facility] 03-15-2025 14:00-0400 SaO2% (BldA) [Mass fraction] 97 % Dr. Monroe Polk DO Work Phone: [facility] 03-15-2025 14:00-0400 Systolic blood pressure 113 mm[Hg] Dr. Monroe Polk DO Work Phone: [facility] 03-14-2025 14:10-0400 Body height 183.[address] Monroe Polk DO Work Phone: [facility] 03-14-2025 14:10-0400 Body weight 97.[address] Monroe Polk DO Work Phone: [facility] 03-12-2025 22:02-0400 Body mass index (BMI) [Ratio] 29.1 kg/m2 Dr. Monroe Polk DO Work Phone: 4([phone])[phone] [place] [address] 03-12-2025 18:10-0400 Body temperature 97.9 [degF] Dr. Monroe Polk DO Work Phone: 3(473)103-896254 [place] [address] 03-12-2025 18:10-0400 Diastolic blood pressure 85 mm[Hg] Dr. Monroe Polk DO Work Phone: 0(022)906-799354 [place] [address] 03-12-2025 18:10-0400 Heart rate 92 /min Dr. Monroe Polk DO Work Phone: 6(004)032-314770 [place] [address] 03-12-2025 18:10-0400 Respiratory rate 14 /min Dr. Monroe Polk DO Work Phone: 6(178)552-052070 [place] [address] 03-12-2025 18:10-0400 SaO2% (BldA) [Mass fraction] 99 % Dr. Monroe Polk DO Work Phone: 7(796)146-791854 [place] [address] 03-12-2025 18:10-0400 Systolic blood pressure 100 mm[Hg] Dr. Monroe Polk DO Work Phone: 0(033)667-177954 [place] [address] 03-12-2025 15:38-0400 Body mass index (BMI) [Ratio] 29.1 kg/m2 Dr. Monroe Polk DO Work Phone: 9(810)667-736654 [place] [address] 03-12-2025 15:38-0400 Body weight 97.[address] Monroe Polk DO Work Phone: 5(093)113-623254 [place] [address] 03-12-2025 15:35-0400 Body height 182.[address] Monroe Polk DO Work Phone: 2(481)424-350870 [place] [address] Encounters Encounter Date Encounter Type Care Provider Facility Start: 03-13-2025 End: 03-15-2025 Evaluation and management of inpatient Dr. David Javier DPM -[facility] Work Phone: Start: 03-12-2025 Non-patient / Non-visit Dr. Edward Saldivar MD -[facility] Work Phone: Start: 03-12-2025 ambulatory David Javier Facility: [facility] Start: 03-12-2025 End: 03-12-2025 Emergency department patient visit Dr. Monroe Polk DO Work Phone: -Emergency Department Work Phone: Start: 09-10-2023 End: 09-10-2023 ambulatory MARIO MARTÍNEZ DO Facility:A Start: 07-11-2017 End: 07-11-2017 Ambulatory V. JARROD MEEKS [facility] Start: 06-18-2017 [facility] Start: 06-18-2017 End: 06-19-2017 Ambulatory V. JARROD [facility] Procedures Date Procedure Procedure Detail Performing Clinician Start: 03-14-[address] Monroe Polk DO Work Phone: Start: 03-12-[address] Bhupinder Polk DO Work Phone: Start: 03-12-2025 Fluoroscopic guidance Wilman Polk DO Work Phone: Start: 03-12-[address] Monroe Polk DO Work Phone: Start: 03-12-2025 End: 03-12-2025 X-ray of foot, two views Dr. Monroe arnold DO Work Phone: Plan of Treatment Date Care Activity Detail Author Start: 03-15-2025 Patient discharge [facility] Start: 03-13-2025 Admission procedure [facility] Start: 03-13-2025 Incentive spirometry [facility] Start: 03-13-2025 [facility] Start: 03-12-2025 Following clinical pathway protocol [facility] Start: 03-12-2025 Admission procedure [facility] Start: 03-12-2025 Consultation [facility] Start: 03-12-2025 Application of ice collar, cap or bag [facility] Start: 03-12-2025 Catheterization of vein [facility] Start: 03-12-2025 Elevation of foot of bed [facility] Start: 03-12-2025 Neurovascular assessment [facility] Start: 03-12-2025 Procedure discontinued [facility] Start: 03-12-2025 Vital signs measurements [facility] Start: 03-12-2025 [facility] Start: 03-12-2025 Provision of mobility device [facility] Start: 03-12-2025 Referral to service [facility] Start: 03-12-2025 Amputation of toe Amputation Toe/Foot (Right) [facility] Start: 03-12-2025 Fluoroscopic guidance O.R. Fluoro for C-Arm [facility] Start: 03-12-2025 X-ray of foot, two views Foot 2 Views [facility] Anion gap in Serum o r Plasma [facility] BUN/Creatinine ratio [facility] Calcium [Mass/volume ] in Serum or Plasma [facility] Carbon dioxide, tota l [Moles/volume] in Central venous blood [facility] Creatinine [Mass/vol ume] in Serum or Plasma [facility] Erythrocyte mean corpuscular volume determination [facility] Glucose [Mass/volume ] in Serum or Plasma [facility] Hematocrit [Volume Fraction] of Blood [facility] Hemoglobin [Mass/vol ume] in Blood [facility] Leukocytes [#/volume ] in Blood [facility] Mean corpuscular hem oglobin concentration determination [facility] Mean corpuscular hem oglobin determination [facility] Measurement of renal function [facility] Neutrophil count [facility] Neutrophil percent differential count [facility] Patient referral [facility] Work Phone: Platelets [#/volume] in Blood [facility] Potassium measurement [facility] Red blood cell count [facility] Red cell distributio n width determination [facility] Serum chloride measurement [facility] Sodium measurement [facility] Urea nitrogen [Mass/ volume] in Serum or Plasma [facility] Immunizations Immunization Date Immunization Notes Care Provider Fa cility 03-12-2025 tetanus toxoid, redu kassie diphtheria toxoid, and acellular pertussis vaccine, adsorbed Dr. Monroe Polk DO Work Phone: [facility] 06-18-2017 tetanus toxoid, redu kassie diphtheria toxoid, and acellular pertussis vaccine, adsorbed Dr. Monroe Polk DO Work Phone: [facility] 06-01-2002 measles, mumps and rubella virus vaccine Dr. Monroe Polk DO Work Phone: [facility] 07-24-2000 diphtheria, tetanus toxoids and acellular pertussis vaccine Dr. Monroe Polk DO Work Phone: [facility] 07-24-2000 measles, mumps and rubella virus vaccine Dr. Monroe Polk DO Work Phone: [facility] 07-24-2000 poliovirus vaccine, inactivated Dr. Monroe Polk DO Work Phone: [facility] 07-13-[address] Monroe Polk DO Work Phone: [facility] 07-02-1995 diphtheria, tetanus toxoids and acellular pertussis vaccine Dr. Monroe Polk DO Work Phone: [facility] 07-02-1995 haemophilus influenz ae type b vaccine, PRP-T conjugate Dr. Monroe Polk DO Work Phone: [facility] 07-02-1995 hepatitis B vaccine, pediatric or pediatric/adolescent dosage Dr. Monroe Polk DO Work Phone: [facility] 07-02-1995 trivalent poliovirus vaccine, live, oral Dr. Monroe Polk DO Work Phone: [facility] 04-30-1995 diphtheria, tetanus toxoids and acellular pertussis vaccine Dr. Monroe Polk DO Work Phone: [facility] 04-30-1995 haemophilus influenz ae type b vaccine, PRP-T conjugate Dr. Monroe Polk DO Work Phone: [facility] 04-30-1995 trivalent poliovirus vaccine, live, oral Dr. Monroe Polk DO Work Phone: [facility] 02-19-1995 diphtheria, tetanus toxoids and acellular pertussis vaccine Dr. Monroe Polk DO Work Phone: [facility] 02-19-1995 haemophilus influenz ae type b vaccine, PRP-T conjugate Dr. Monroe Polk DO Work Phone: [facility] 02-19-1995 hepatitis B vaccine, pediatric or pediatric/adolescent dosage Dr. Monroe Polk DO Work Phone: [facility] 02-19-1995 trivalent poliovirus vaccine, live, oral Dr. Monroe Polk DO Work Phone: [facility] 1995 hepatitis B vaccine, pediatric or pediatric/adolescent dosage Dr. Monroe Polk DO Work Phone: [facility] Payers Date Payer Category Payer Self-pay 2023 Unknown [id number] 1995 Unknown [id number] Unknown [id number] Unknown [id number] Unknown [id number] Social History Date Type Detail Facility Start: 03-12-2025 End: 03-12-2025 Tobacco smoking status NHIS Never smoked tobacco (finding) [facility] Start: 1995 Sex Assigned At Male W [facility] Goals Date Patient Goal Desired Activity /State Functional Status Date Assessment Result Facility 03-15-2025 Functional status Chair [facility] Work Phone: 03-13-2025 Functional status Standard Walker [facility] Work Phone: Mental Status Date Assessment Result Facility 03-14-2025 Cognitive function Voice/Name [facility] Work Phone: Clinical Notes 03-12-2025 to 03-15-2025 Note Date & Type Note Facility 03-15-2025 Discharge summary [facility] 03-15-2025 Note [facility] Medical Records Department [address] [place] [address] Discharge Summary 03/15/25 0815 MR#: [id number] Acct: [id number] Name: JAKOB MORRELL Rep #: [id number] : 1995 29 From: David Javier DPM PCP: Elyse Christie Status:ADM IN Location: [facility] [id number] Providers Date of Admission: 03/13/25 Date of Discharge: 03/30/25 Primary Care Physician: Elyse Christie Consultations 03/12/25 21:09 Consult: Hospitalist Routine Consulting Provider: Edward Saldivar Reason for Consult: Post op eval EMERGENT Consult: No MD Notified: Yes Date Notified: 03/12/25 Time Notified: 22:01 Method of Notification: Text Reason For Visit: LACERATION RIGHT FOOT Diagnosis Discharge Diagnosis (1) Laceration of right foot: Status: Acute Code(s): S91.311A - Laceration without foreign body, right foot, initial encounter Qualifiers: Encounter type: initial encounter Qualified Code(s): S91.311A - Laceration without foreign body, right foot, initial encounter (2) Traumatic dislocation of right great toe: Status: Acute Code(s): S93.104A - Unspecified dislocation of right toe(s), initial encounter Qualifiers: Encounter type: initial encounter Qualified Code(s): S93.104A - Unspecified dislocation of right toe(s), initial encounter (3) Laceration of muscle and tendon of long flexor muscle of toe at ankle and foot level, right foot, initial encounter: Status: Acute Code(s): S96.021A - Laceration of muscle and tendon of long flexor muscle of toe at ankle and foot level, right foot, initial encounter (4) Onycholysis: Status: Acute Code(s): L60.1 - Onycholysis (5) Fracture of distal phalanx of toe of right foot: Status: Acute Code(s): S92.911A - Unspecified fracture of right toe(s), initial encounter for closed fracture Medications at Discharge Home Medications multivitamin (Daily Multi-Vitamin tablet) 1 tab PO DAILY supplement 03/12/25 omega 3-jpm-nxt-fish oil 1,200 mg (144 mg-216 mg) capsule (Fish Oil) 2 cap PO DAILY supplement 03/12/25 sumatriptan succinate 50 mg tablet 50 mg PO PRN PRN migraine headache 03/12/25 amoxicillin 875 mg-potassium clavulanate 125 mg tablet 1 tab PO BID 2 weeks #28 tabs 03/14/25 ascorbic acid (vitamin C) 1,000 mg tablet (Vitamin C) 1 g PO DAILY 90 days #90 tabs 03/14/25 aspirin 325 mg tablet 325 mg PO BID 30 days #60 tabs 03/14/25 calcium 500 mg (as carbonate)-vitamin D3 15 mcg (600 unit) tablet (Os-Willy 500 + D3) 1 tab PO DAILY 90 days #90 tabs 03/14/25 ciprofloxacin HCl 750 mg tablet 750 mg PO BID 2 weeks #28 tabs 03/14/25 cyclobenzaprine 10 mg tablet 10 mg PO TID muscle spasm 7 days #21 tabs 03/14/25 docusate sodium 100 mg capsule (Colace) 100 mg PO DAILY 10 days #10 caps 03/14/25 oxycodone-acetaminophen 5 mg-325 mg tablet (Endocet) 1 tab PO Q6H 7 days #28 tabs 03/14/25 Physical Exam Narrative Vascular: DP and PT pulses are palpable to left lower extremity. CFT is brisk to the right foot and right hallux. There is evidence of delayed CFT to the plantar flap of the right hallux. Nonpitting edema appreciated to the right foot. Evidence of ecchymosis appreciated to the right foot. Skin temperature great is warm to warm from proximal ankles to distal digit to right lower extremity. Neurological: Light touch is intact. Patient does respond to painful stimuli. Dermatological: All skin is well coapted with suture to the right hallux via advancement flap. There is evidence of ecchymosis to the hallux and the right foot. Slight duskiness appreciated to the plantar flap of the hallux right foot. Sanguinous drainage is appreciated out of the nail bed with a granular nail bed noted. No sign of infection. Musculoskeletal: Muscle strength was deferred. Mild pain on palpation to the incision on the right hallux and right foot. No pain with calf compression. Const alert, oriented x3 and no apparent distress General Appearance: cooperative and comfortable Orientation / Consciousness: awake Exam Limitations: no limitations Weight / BMI Weight Weight: 97.5 kg Body Mass Index (BMI) 29.1 ABG / Lab / Microbiology Data 03/14/25 04:25 03/14/25 04:25 Laboratory: Laboratory Results - last 24 hr 03/13/25 13:05: Hemoglobin A1c 5.4 03/14/25 : Hemoglobin A1c Cancelled Radiography Diagnostic Testing: Radiology Impression Foot X-Ray 03/12/25 15:42 IMPRESSION: 1. No radiopaque foreign body. 2. Probable comminuted fracture and laceration of the 1st distal phalanx. Soft tissue swelling. Reading Location: [facility] D/C Instructions Discharge Diet: No restrictions Discharge Activity: May Not Drive and Use Crutches May resume sexual activity in: No Restrictions Ice area for (Minutes): 20 Weight Bearing Status: No (more content not included)... [facility] 03-14-2025 Progress note Note Date/Time March 14, 2025 6:02pm [facility] Medical Records Department [address] [place] [address] Progress Note - Surgery 03/14/25 1306 MR#: [id number] Acct: [id number] Name: JAKOB MORRELL Rep #:[id number] : 1995 29 From: David PAZ PCP: Elyse Christie Status:ADM IN Location: MS3 [id number] Subjective Subjective Mr. Wright is a 29-year-old male seen at bedside today for posterior splint/dressing changes to right lower extremity. He is status post nail avulsion, repair of lacerated tendon, flexor hallucis longus, close reduction and pinning of dislocated first metatarsophalangeal joint, percutaneous pinning of avulsion fracture and advancement flap closure to the right foot. DOS: 03/12/2025. Patient states that his pain is improving. He is using prescribed pain medication as scheduled. He rates his pain as 4 out of 10 on the pain scale. He is continue rest ice and elevate his left lower extremity. Denies any new onset of trauma. Denies constitutional symptoms. No other pedal complaints at this time. Objective Data Objective Data Vital Signs: Vital Signs Temp Pulse Resp BP Pulse Ox O2 Del Method 98.3 F 76 16 116/82 H 98 Room Air 03/14/25 09:27 03/14/25 09:27 03/14/25 09:27 03/14/25 09:27 03/14/25 09:27 03/14/25 09:27 Oxygen Delivery Method Room Air Weight: 97.5 kg Body Mass Index (BMI) 29.1 Intake & Output: Intake and Output for Last 24 Hours 03/12/25 03/13/25 03/14/25 23:59 23:59 23:59 Intake Total 1115.75 / 1115.75 1444.25 / 1794.25 810 / 810 Output Total 300 / 300 900 / 1500 1974 Balance 815.75 / 815.75 544.25 / 294.25 -1165 / -1165 Lab / Micro Data 03/14/25 04:25 03/14/25 04:25 Labs: Laboratory Results - last 24 hr 03/14/25 04:25: WBC 9.1, RBC 4.13 L, Hgb 12.6 L, Hct 38.0 L, MCV 92.0, MCH 30.5,MCHC 33.2, RDW Std Deviation 43.2, RDW Coeff of Dinh 12.9, Plt Count 193, MPV 9.9, Immature Gran % (Auto) 0.200, Neut % (Auto) 61.0, Lymph % (Auto) 28.7, Greenbrier% (Auto) 8.2, Eos % (Auto) 1.6, Baso % (Auto) 0.3, Absolute Neuts (auto) 5.6, Absolute Lymphs (auto) 2.62, Nucleated RBC % 0, Sodium 138, Potassium 4.3, Chloride 104, Carbon Dioxide 23.4, Anion Gap 11, BUN 10, Creatinine 1.09, Estim Creat Clear Calc 119.92, Est GFR (MDRD) Non-Af 94, BUN/Creatinine Ratio 9.2 L, Glucose 101 H, Calcium 8.8 Physical Exam Narrative Vascular: DP and PT pulses are palpable to left lower extremity. CFT is brisk to the right foot and right hallux. There is evidence of delayed CFT to the plantar flap of the right hallux. Nonpitting edema appreciated to the right foot. Evidence of ecchymosis appreciated to the right foot. Skin temperature great is warm to warm from proximal ankles to distal digit to right lower extremity. Neurological: Light touch is intact. Patient does respond to painful stimuli. Dermatological: All skin is well coapted with suture to the right hallux via advancement flap. There is evidence of ecchymosis to the hallux and the right foot. Slight duskiness appreciated to the plantar flap of the hallux right foot. Sanguinous drainage is appreciated out of the nail bed with a granular nail bed noted. No sign of infection. Musculoskeletal: Muscle strength was deferred. Mild pain on palpation to the incision on the right hallux and right foot. No pain with calf compression. Assessment & Plan Assessment/Plan (1) Laceration of right foot: QUALIFIERS: Encounter type: initial encounter Qualified Code(s): S91.311A - Laceration without foreign body, right foot, initial encounter PLAN: Patient was examined evaluated. All fines were discussed with the patient. All questions were answered to the patient satisfaction. Patient doing well after his emergent right foot surgery. DOS: 03/12/2025. The right lower extremity dressing was removed without incident. There is evidence of capillary fill time to majority of the hallux and right foot but with evidence of delayed capillary refill time to the plantar flap of the right hallux which is expected. Educated the patient and his on healing potential and are outcome is favorable at this time. Pin care was done with alcohol wipes and the right foot incisions were dressed with Betadine soaked Adaptic dry sterile dressing and a Wyatt posterior splint was donned to the right foot. Educated the patient on postoperative plan with nonweightbearing with assistive crutches and/or knee scooter to the right lower extremity. He will be full weightbearing to left lower extremity. Patient will be discharged on pain medication, Percocet 5/325, cyclobenzaprine 10 mg 3 times daily, oral antibiotics Keflex 500 mg 3 times daily and Cipro 750 mg twice daily for 2 weeks. All medications will be sent to the patient's pharmacy. Medicine: On board, medical management Plan will be to discharge the patient tomorrow morning to his home we will continue his postoperative care. Please reach out to Dr. Javier for any question or concerns. (2) Traumatic dislocation of right great toe: QUALIFIERS: Encounter type: initial encounter Qualified Code(s): S93.104A - Unspecified dislocation of right toe(s), initial encounter (3) Laceration of muscle and tendon of long flexor muscle of toe at ankle and foot level, right foot, initial encounter: (4) Onycholysis: (5) Fracture of distal phalanx of toe of right foot: 03/14/25 1802 <Electronically signed by David Javier DPM> Cosigner Signature (if applicable): CC: ~ Signed [facility] Work Phone: 1(144) 112-604005-19-2025 Progress note [facility] Medical Records Department [address] [place] [address] Progress Note - Surgery 03/14/25 1306 MR#: [id number] Acct: [id number] Name: JAKOB MORRELL Rep #:[id number] : 1995 29 From: David PAZ PCP: Elyse Christie Status:ADM IN Location: MS3 HB558-5 Subjective Subjective Mr. Wright is a 29-year-old male seen at bedside today for posterior splint/dressing changes to right lower extremity. He is status post nail avulsion, repair of lacerated tendon, flexor hallucis longus, close reduction and pinning of dislocated first metatarsophalangeal joint, percutaneous pinning of avulsion fracture and advancement flap closure to the right foot. DOS: 03/12/2025. Patient states that his pain is improving. He is using prescribed pain medication as scheduled. He rates his pain as 4 out of 10 on the pain scale. He is continue rest ice and elevate his left lower extremity. Denies any new onset of trauma. Denies constitutional symptoms. No other pedal complaints at this time. Objective Data Objective Data Vital Signs: Vital Signs Temp Pulse Resp BP Pulse Ox O2 Del Method 98.3 F 76 16 116/82 H 98 Room Air 03/14/25 09:27 03/14/25 09:27 03/14/25 09:27 03/14/25 09:27 03/14/25 09:27 03/14/25 09:27 Oxygen Delivery Method Room Air Weight: 97.5 kg Body Mass Index (BMI) 29.1 Intake & Output: Intake and Output for Last 24 Hours 03/12/25 03/13/25 03/14/25 23:59 23:59 23:59 Intake Total 1115.75 / 1115.75 1444.25 / 1794.25 810 / 810 Output Total 300 / 300 900 / 1500 1974 Balance 815.75 / 815.75 544.25 / 294.25 -1165 / -1165 Lab / Micro Data 03/14/25 04:25 03/14/25 04:25 Labs: Laboratory Results - last 24 hr 03/14/25 04:25: WBC 9.1, RBC 4.13 L, Hgb 12.6 L, Hct 38.0 L, MCV 92.0, MCH 30.5,MCHC 33.2, RDW Std Deviation 43.2, RDW Coeff of Dinh 12.9, Plt Count 193, MPV 9.9, Immature Gran % (Auto) 0.200, Neut % (Auto) 61.0, Lymph % (Auto) 28.7, Greenbrier% (Auto) 8.2, Eos % (Auto) 1.6, Baso % (Auto) 0.3, Absolute Neuts (auto) 5.6, Absolute Lymphs (auto) 2.62, Nucleated RBC % 0, Sodium 138, Potassium 4.3, Chloride 104, Carbon Dioxide 23.4, Anion Gap 11, BUN 10, Creatinine 1.09, Estim Creat Clear Calc 119.92, Est GFR (MDRD) Non-Af 94, BUN/Creatinine Ratio 9.2 L, Glucose 101 H, Calcium 8.8 Physical Exam Narrative Vascular: DP and PT pulses are palpable to left lower extremity. CFT is brisk to the right foot andright hallux. There is evidence of delayed CFT to the plantar flap of the right hallux. Nonpitting edema appreciated to the right foot. Evidence of ecchymosis appreciated to the right foot. Skin temperature great is warm to warm from proximal ankles to distal digit to right lower extremity. Neurological: Light touch is intact. Patient does respond to painful stimuli. Dermatological: All skin is well coapted with suture to the right hallux via advancement flap. There is evidence of ecchymosis to the hallux and the right foot. Slight duskiness appreciated to the plantar flap of the hallux right foot. Sanguinous drainage is appreciated out of the nail bed with a granular nail bed noted. No sign of infection. Musculoskeletal: Muscle strength was deferred. Mild pain on palpation to the incision on the right hallux and right foot. No pain with calf compression. Assessment & Plan Assessment/Plan (1) Laceration of right foot: QUALIFIERS: Encounter type: initial encounter Qualified Code(s): S91.311A - Laceration without foreign body, right foot, initial encounter PLAN: Patient was examined evaluated. All fines were discussed with the patient. All questions wereanswered to the patient satisfaction. Patient doing well after his emergent right foot surgery. DOS: 03/12/2025. The right lower extremity dressing was removed without incident. There is evidence of capillary fill time to majority of the hallux and right foot but with evidence of delayed capillary refill time to the plantar flap of the right hallux which is expected. Educated the patient and his on healing potential and are outcome is favorable at this time. Pin care was done with alcohol wipes and theright foot incisions were dressed with Betadine soaked Adaptic dry sterile dressing and a Wyatt posterior splint was donned to the right foot. Educated the patient on postoperative plan with nonweightbearing with assistive crutches and/or knee scooter to the right lower extremity. He will be full weightbearing to left lower extremity. Patient will be discharged on pain medication, Percocet 5/325, cyclobenzaprine 10 mg 3 times daily,oral antibiotics Keflex 500 mg 3 times daily and Cipro 750 mg twice daily for 2 weeks. All medications will be sent to the patient's pharmacy. Medicine: On board, medical management Plan will be to discharge the patient tomorrow morning to his home we will continue his postoperative care. Please reach out to Dr. Javier for any question or concerns. (2) Traumatic dislocation of right great toe: QUALIFIERS: Encounter type: initial encounter Qualified Code(s): S93.104A - Unspecified dislocationof right toe(s), initial encounter (3) Laceration of muscle and tendon of long flexor muscle of toe at ankle and foot level, right foot, initial encounter: (4) Onycholysis: (5) Fracture of distal phalanx of toe of right foot: 03/14/25 1802 Cosigner Signature (if applicable): CC: ~ Signed [facility]05-19-2025 Radiology Diagnostic study note [facility] Imaging Services [address] [place] [address] Foot 2 Views MR#: [id number] Acct: [id number] Name: JAKOB MORRELL Rep #: [id number] : 1995 M 29 From: Farzana Barton MD PCP: Elyse Christie Status: ADM IN Study:Foot 2 Views Date of Exam: 5 Exam# [id number] Ordering Dr: Olga Reynolds ADDENDUM by Dr. Colby Barton MD on 03/14/25 at 1313 Dislocation at the 1st metatarsophalangeal joint. Reading Location[facility] 03/14/25 1313 Date cc: Elyse Christie; DIANA Nieto ~* Signed EXAM: XR Right Foot, 2 Views CLINICAL INDICATION: LACERATION TECHNIQUE: Frontal and lateral views of the right foot. COMPARISON: No relevant prior studies available. FINDINGS: BONES/JOINTS: Probable comminuted fracture and laceration of the 1st distal phalanx. Soft tissue swelling. No dislocation. SOFT TISSUES: No radiopaque foreign body. RAD/Foot 2 Views IMPRESSION: 1. No radiopaque foreign body. 2. Probable comminuted fracture and laceration of the 1st distal phalanx. Softtissue swelling. 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 [facility]05-18-2025 Evaluation note* Diagnosis Onset Date Resolution Status Admit Date Fracture of distal phalanx o f toe of right foot acute March 13, 2025 2 :18pm Laceration of muscle and ten don of long flexor muscle of toe at ankle and f acute March 13, 2025 2 :18pm Laceration of right foot acute March 13, 2025 2:18pm Onycholysis acute March 13 2:18pm Traumatic dislocation of rig ht great toe acute March 13, 2025 2 :18pm [facility] Work Phone: 1(183) 522-382305-18-2025 Progress note Author David Javier [facility] Note Date/Time March 13, 2025 12:49 pm [facility] Medical Records Department [address] [place] [address] Progress Note - Surgery 03/13/25 1152 MR#: [id number] Acct: [id number] Name: JAKOB MORRELL Rep #:[id number] : 1995 29 From: David PAZ PCP: Elyse Christie Status:ADM APOLINAR Location: MS3 RN680-4 Subjective Subjective Mr. Morrell is a 29-year-old male seen at bedside today for dressing change to right lower extremity. Patient is status post nail avulsion, repair of lacerated tendon, flexor hallucis longus, close reduction and pinning of dislocated first metatarsophalangeal joint, percutaneous pinning of avulsion fracture and advancement flap closure to the right foot. DOS: 03/12/2025. Patient doing well. He rates his pain as 5 out of 10 on the pain scale. His pain is controlled with prescribed pain medication. No acute events overnight. His nausea has improved. He denies any additional constitutional symptoms. No other pedal complaints at this time. Objective Data Objective Data Vital Signs: Vital Signs Temp Pulse Resp BP Pulse Ox O2 Del Method 98.8 F 98 18 106/59 L 95 Room Air 03/13/25 08:44 03/13/25 08:44 03/13/25 08:44 03/13/25 08:44 03/13/25 08:44 03/13/25 08:44 Oxygen Delivery Method Room Air Weight: 97.5 kg Body Mass Index (BMI) 29.1 Intake & Output: Intake and Output for Last 24 Hours 03/11/25 03/12/25 03/13/25 23:59 23:59 23:59 Intake Total 1115.75 / 1115.75 235.75 / 235.75 Output Total 300 / 300 300 / 300 Balance 815.75 / 815.75 -64.25 / -64.25 Lab / Micro Data 03/12/25 15:52 03/12/25 15:52 Labs: Laboratory Results - last 24 hr 03/12/25 15:52: WBC 9.8, RBC 4.94, Hgb 15.2, Hct 43.3, MCV 87.7, MCH 30.8, MCHC 35.1, RDW Std Deviation 39.6, RDW Coeff of Dinh 12.4, Plt Count 272, MPV 9.7, Immature Gran % (Auto) 0.200, Neut % (Auto) 40.0 L, Lymph % (Auto) 50.4 H, Greenbrier % (Auto) 7.7, Eos % (Auto) 1.2, Baso % (Auto) 0.5, Absolute Neuts (auto) 3.9, Absolute Lymphs (auto) 4.95 H, Nucleated RBC % 0, Sodium 139, Potassium 3.9, Chloride 101, Carbon Dioxide 19.9 L, Anion Gap 18 H, BUN 16, Creatinine 1.21 H, Estim Creat Clear Calc 108.03, Est GFR (MDRD) Non-Af 83, BUN/Creatinine Ratio 13.6, Glucose 102 H, Calcium 9.8 Radiography Diagnostic Testing: Radiology Impression Foot X-Ray 03/12/25 15:42 IMPRESSION: 1. No radiopaque foreign body. 2. Probable comminuted fracture and laceration of the 1st distal phalanx. Softtissue swelling. Reading Location: [id number] Foot X-Ray 03/12/25 18:00 IMPRESSION: As above. Reading [facility] Physical Exam Narrative Vascular: DP PT pulses are palpable to the right lower extremity. CFT is brisk to the dorsal, medial, lateral and proximal plantar hallux and first metatarsal phalangeal joint. There is delayed capillary refill time to the plantar aspect of the right hallux with mild duskiness appreciated. Skin temperature is warm to warm from proximal ankle to distal digits. Neurological: Light touch is intact. Epicritic sensation is intact. Patient does respond to painful stimuli. Dermatological: All skin is well coapted with suture to the right hallux advancement flap area. Evidence of granular sanguinous draining tissue to the nailbed of the right hallux. No malodor. Negative probe to bone. Evidence of duskiness appreciated to the plantar aspect of the right hallux at the size of anickel, the remaining surrounding tissue is erythematous and blanchable. No sign of infection. Musculoskeletal:. Mild pain on palpation to the incisions to the right hallux. Mild pain palpation to the nailbed of the right hallux. No pain with calf pressure. Const oriented x3 and no apparent distress Assessment & Plan Assessment/Plan (1) Laceration of right foot: QUALIFIERS: Encounter type: initial encounter Qualified Code(s): S91.311A - Laceration without foreign body, right foot, initial encounter PLAN: Patient was examined evaluated. All findings were discussed with the patient. All questions were answered the patient expected. Overall, the patient is doing well after surgery to the right lower extremity. DOS: 03/12/2025. Will continue pain medication as scheduled. The right lower extremity dressing was removed without incident. There was evidence of capillary refill time less than 3 seconds to the dorsal, medial and lateral right hallux. There is evidence of delayed capillary refill time to theplantar aspect of the hallux and size of a nickel. This is an area that will beconcerning for tissue necrosis. The right lower extremity exposed pins and suture were dressed with Betadine soaked Adaptic, dry sterile dressing and a double layer Wyatt posterior splint was applied to the right lower extremity. Patient will continue to elevate 4 inches above his heart and apply ice to the posterior aspect of the right knee and anterior ankle as needed. We will continue the IV antibiotics Ancef and Zosyn as scheduled for the next 24hours. Medicine: On board, medical management Plan will be to discharge the patient Friday morning versus afternoon. All prescriptions will be sent to the patient's pharmacy prior to discharge. Podiatry will continue to follow with primary. No plan for additional surgery at this time and the patient will follow-up as an outpatient in office for 2 times per week dressing changes and local wound care as needed. Please reach out to Dr. Javier with any questions or concerns. (2) Traumatic dislocation of right great toe: QUALIFIERS: Encounter type: initial encounter Qualified Code(s): S93.104A - Unspecified dislocation of right toe(s), initial encounter (3) Laceration of muscle and tendon of long flexor muscle of toe at ankle and foot level, right foot, initial encounter: (4) Onycholysis: (5) Fracture of distal phalanx of toe of right foot: 03/13/25 1249 <Electronically signed by David Javier DPM> Cosigner Signature (if applicable): CC: ~ Signed [facility] Work Phone: 1(277) 251-111505-18-2025 Progress note [facility] Medical Records Department [address] [place] [address] Progress Note - Surgery 03/13/25 1152 MR#: [id number] Acct: [id number] Name: JAKOB MORRELL Rep #:[id number] : 1995 29 From: David PAZ PCP: Elyse Christie Status:ADM APOLINAR Location: NV3 BG495-9 Subjective Subjective Mr. Morrell is a 29-year-old male seen at bedside today for dressing change to right lower extremity.Patient is status post nail avulsion, repair of lacerated tendon, flexor hallucis longus, close reduction and pinning of dislocated first metatarsophalangeal joint, percutaneous pinning of avulsion fracture and advancement flap closure to the right foot. DOS: 03/12/2025. Patient doing well. He rateshis pain as 5 out of 10 on the pain scale. His pain is controlled with prescribed pain medication. No acute events overnight. His nausea has improved. He denies any additional constitutional symptoms. No other pedal complaints at this time. Objective Data Objective Data Vital Signs: Vital Signs Temp Pulse Resp BP Pulse Ox O2 Del Method 98.8 F 98 18 106/59 L 95 Room Air 03/13/25 08:44 03/13/25 08:44 03/13/25 08:44 03/13/25 08:44 03/13/25 08:44 03/13/25 08:44 Oxygen Delivery Method Room Air Weight: 97.5 kg Body Mass Index (BMI) 29.1 Intake & Output: Intake and Output for Last 24 Hours 03/11/25 03/12/25 03/13/25 23:59 23:59 23:59 Intake Total 1115.75 / 1115.75 235.75 / 235.75 Output Total 300 / 300 300 / 300 Balance 815.75 / 815.75 -64.25 / -64.25 Lab / Micro Data 03/12/25 15:52 03/12/25 15:52 Labs: Laboratory Results - last 24 hr 03/12/25 15:52: WBC 9.8, RBC 4.94, Hgb 15.2, Hct 43.3, MCV 87.7, MCH 30.8, MCHC 35.1, RDW Std Deviation 39.6, RDW Coeff of Dinh 12.4, Plt Count 272, MPV 9.7, Immature Gran % (Auto) 0.200, Neut % (Auto) 40.0 L, Lymph % (Auto) 50.4 H, Greenbrier % (Auto) 7.7, Eos % (Auto) 1.2, Baso % (Auto) 0.5, Absolute Neuts (auto) 3.9, Absolute Lymphs (auto) 4.95 H, Nucleated RBC % 0, Sodium 139, Potassium 3.9, Chloride 101, Carbon Dioxide 19.9 L, Anion Gap 18 H, BUN 16, Creatinine 1.21 H, Estim Creat Clear Calc 108.03, Est GFR (MDRD) Non-Af 83, BUN/Creatinine Ratio 13.6, Glucose 102 H, Calcium 9.8 Radiography Diagnostic Testing: Radiology Impression Foot X-Ray 03/12/25 15:42 IMPRESSION: 1. No radiopaque foreign body. 2. Probable comminuted fracture and laceration of the 1st distal phalanx. Softtissue swelling. Reading Location: [facility] Foot X-Ray 03/12/25 18:00 IMPRESSION: As above. Reading Location: [facility] Physical Exam Narrative Vascular: DP PT pulses are palpable to the right lower extremity. CFT is brisk to the dorsal, medial, lateral and proximal plantar hallux and first metatarsal phalangeal joint. There is delayed capillary refill time to the plantar aspect of the right hallux with mild duskiness appreciated. Skin temperature is warm to warm from proximal ankle to distal digits. Neurological: Light touch is intact. Epicritic sensation is intact. Patient does respond to painfulstimuli. Dermatological: All skin is well coapted with suture to the right hallux advancement flap area. Evidence of granular sanguinous draining tissue to the nailbed of the right hallux. No malodor. Negative probe to bone. Evidence of duskiness appreciated to the plantar aspect of the right hallux at the size of anickel, the remaining surrounding tissue is erythematous and blanchable. No sign of infection. Musculoskeletal:. Mild pain on palpation to the incisions to the right hallux. Mild pain palpation to the nailbed of the right hallux. No pain with calf pressure. Const oriented x3 and no apparent distress Assessment & Plan Assessment/Plan (1) Laceration of right foot: QUALIFIERS: Encounter type: initial encounter Qualified Code(s): S91.311A - Laceration without foreign body, right foot, initial encounter PLAN: Patient was examined evaluated. All findings were discussed with the patient. All questions were answered the patient expected. Overall, the patient is doing well after surgery to the right lower extremity. DOS: 03/12/2025. Willcontinue pain medication as scheduled. The right lower extremity dressing was removed without incident. There was evidence of capillary refill time less than 3 seconds to the dorsal, medial and lateral right hallux. There is evidence of delayed capillary refill time to theplantar aspect of the hallux and size of a nickel. This is an area that will beconcerning for tissue necrosis. The right lower extremity exposed pins and suture weredressed with Betadine soaked Adaptic, dry sterile dressing and a double layer Wyatt posterior splint was applied to the right lower extremity. Patient will continue to elevate 4 inches above his heart and apply ice to the posterior aspect of the right knee and anterior ankle as needed. We will continue the IV antibiotics Ancef and Zosyn as scheduled for the next 24hours. Medicine: On board, medical management Plan will be to discharge the patient Friday morning versus afternoon. All prescriptions will be sent to the patient's pharmacy prior to discharge. Podiatry will continue to follow with primary. No plan for additional surgery at this time and the patient will follow-up as an outpatient in office for 2 times per week dressing changes and local wound care as needed. Please reach out to Dr. Javier with any questions or concerns. (2) Traumatic dislocation of right great toe: QUALIFIERS: Encounter type: initial encounter Qualified Code(s): S93.104A - Unspecified dislocationof right toe(s), initial encounter (3) Laceration of muscle and tendon of long flexor muscle of toe at ankle and foot level, right foot, initial encounter: (4) Onycholysis: (5) Fracture of distal phalanx of toe of right foot: 03/13/25 1249 Cosigner Signature (if applicable): CC: ~ Signed [facility]05-18-2025 Discharge summary Author Olga Johnson [facility] Note Date/Time March 13, 2025 12:45 am [facility] Medical Records Department [address] [place] [address] Emergency Department Summary 03/12/25 MR#: [id number] Acct: [id number] Name: JAKOB MORRELL Rep #:[id number] : 1995 29 From: Olga ORTIZ PCP: Elyse Christie Status:ADM APOLINAR [facility] <DIANA Nieto - Last Filed: 03/12/25 19:13> History of Present Illness Chief Complaint: Laceration Narrative Narrative: Patient presents today with a laceration to his right foot that he sustained this afternoon while mowing the lawn. He reports that he slipped and his foot went underneath the lawnmower getting caught on the blade. He was wearing tennis shoes. He is unsure of his last tetanus update. He is not on any blood thinners. He denies any other injury. [facility] <DIANA Nieto - Last Filed: 03/12/25 19:13> [facility] Medical History Bicuspid aortic valve High blood cholesterol Medical History no medical history Home Medications ?Medication ?Instructions ?Recorded ?Last Taken ?Type multivitamin (Daily Multi-Vitamin 1 tab PO DAILY suppl ement 03/12/25 03/12/25 History tablet) omega 2-ikk-mmi-fish oil 1,200 mg 2 cap PO DAILY suppl ement 03/12/25 03/11/25 History (144 mg-216 mg) capsule (Fish Oil) sumatriptan succinate 50 mg tablet 50 mg PO PRN PRN mi graine headache 03/12/25 Unknown History Allergy/AdvReac Type Severity Reaction Status Date / Time No Known Allergies Allergy Verified 03/12/25 15:38 Family History no significant family his Surgical History no surgical history Social History Smoking Status: Never smoker ROS <DIANA Nieto - Last Filed: 03/12/25 19:13> ROS ED Constitutional Constitutional ED: Denies chills or fever(s) Cardiovascular Cardiovascular: Denies chest pain Respiratory/Chest Respiratory/Chest: Denies dyspnea Musculoskeletal Musculoskeletal: Reports arthralgias Integumentary Reports laceration Neurologic Neurologic: Denies paresthesias EXAM <DIANA Nieto - Last Filed: 03/12/25 19:13> Physical Exam Const Vital Signs: 03/12/25 15:35 03/12/25 16:35 03/12/25 16:57 Temperature 97.9 F Temperature Source Temporal Pulse Rate 112 H 71 79 Respiratory Rate 24 H 11 L 19 H Respiratory Pattern Blood Pressure 94/64 113/84 H Blood Pressure Mean 74 93 Blood Pressure Source Blood Pressure Position Blood Pressure Location Baseline BP Pulse Ox 98 100 100 Oxygen Delivery Method Room Air Room Air Room Air 03/12/25 17:00 03/12/25 18:00 03/12/25 18:10 Temperature 97.9 F Temperature Source Pulse Rate 82 92 92 Respiratory Rate 18 14 14 Respiratory Pattern Blood Pressure 108/83 H 100/85 H 100/85 H Blood Pressure Mean 91 90 90 Blood Pressure Source Blood Pressure Position Blood Pressure Location Baseline BP Pulse Ox 100 99 99 Oxygen Delivery Method Room Air Room Air 03/12/25 20:22 03/12/25 21:00 03/12/25 21:03 Temperature 97.9 F 97 F L 97 F L Temperature Source Temporal Pulse Rate 92 101 H 112 H Respiratory Rate 14 16 16 Respiratory Pattern Normal Blood Pressure 100/85 H 117/77 117/77 Blood Pressure Mean 90 Blood Pressure Source Monitor Blood Pressure Position Semi-Fowlers Blood Pressure Location Left Arm Baseline BP 100/85 Pulse Ox 99 97 96 Oxygen Delivery Method Room Air 03/12/25 21:05 03/12/25 21:10 03/12/25 21:15 Temperature Temperature Source Pulse Rate 112 H 108 H 104 H Respiratory Rate 16 16 16 Respiratory Pattern Blood Pressure 127/72 H 126/80 H 131/85 H Blood Pressure Mean 90 95 100 Blood Pressure Source Monitor Monitor Monitor Blood Pressure Position Semi-Fowlers Semi-Fowlers Semi-Fowlers Blood Pressure Location Left Arm Left Arm Left Arm Baseline BP 100/85 100/85 100/85 Pulse Ox 94 95 93 Oxygen Delivery Method Room Air Room Air Room Air Positive well nourished, well developed and no apparent distress General Appearance ED: well developed HEENT Reports normocephalic and head/scalp atraumatic Mouth ED: Yes moist mucous membranes normal Eyes PERRL and EOMs intact bilaterally Neck full ROM and supple Chest Wall inspection of chest normal Resp normal respiratory effort and clear to auscultation bilaterally Cardio regular rate and regular rhythm Back/Spine normal ROM and normal to inspection Extremity Extremity Narrative: Large full-thickness complex laceration extending from the plantar aspect of theleft big toe through the webspace between the 1st and 2nd toes. Complete flexortendon laceration. He does have intact cap refill and sensation. Minimal active bleeding. Neuro oriented x3, CN's II-XII intact bilaterally, moves all extremities, no focal motor deficits and no sensory deficits noted Sensorium / Orientation: awake and alert Psych mental status grossly normal and thought process normal Skin no rashes or lesions noted and no wounds <Dr. Monroe Polk, DO - Last Filed: 03/13/25 00:39> Physical Exam Const Vital Signs: 03/12/25 15:35 03/12/25 16:35 03/12/25 16:57 Temperature 97.9 F Temperature Source Temporal Pulse Rate 112 H 71 79 Respiratory Rate 24 H 11 L 19 H Respiratory Pattern Blood Pressure 94/64 113/84 H Blood Pressure Mean 74 93 Blood Pressure Source Blood Pressure Position Blood Pressure Location Baseline BP Pulse Ox 98 100 100 Oxygen Delivery Method Room Air Room Air Room Air 03/12/25 17:00 03/12/25 18:00 03/12/25 18:10 Temperature 97.9 F Temperature Source Pulse Rate 82 92 92 Respiratory Rate 18 14 14 Respiratory Pattern Blood Pressure 108/83 H 100/85 H 100/85 H Blood Pressure Mean 91 90 90 Blood Pressure Source Blood Pressure Position Blood Pressure Location Baseline BP Pulse Ox 100 99 99 Oxygen Delivery Method Room Air Room Air 03/12/25 20:22 03/12/25 21:00 03/12/25 21:03 Temperature 97.9 F 97 F L 97 F L Temperature Source Temporal Pulse Rate 92 101 H 112 H Respiratory Rate 14 16 16 Respiratory Pattern Normal Blood Pressure 100/85 H 117/77 117/77 Blood Pressure Mean 90 Blood Pressure Source Monitor Blood Pressure Position Semi-Fowlers Blood Pressure Location Left Arm Baseline BP 100/85 Pulse Ox 99 97 96 Oxygen Delivery Method Room Air 03/12/25 21:05 03/12/25 21:10 03/12/25 21:15 Temperature Temperature Source Pulse Rate 112 H 108 H 104 H Respiratory Rate 16 16 16 Respiratory Pattern Blood Pressure 127/72 H 126/80 H 131/85 H Blood Pressure Mean 90 95 100 Blood Pressure Source Monitor Monitor Monitor Blood Pressure Position Semi-Fowlers Semi-Fowlers Semi-Fowlers Blood Pressure Location Left Arm Left Arm Left Arm Baseline BP 100/85 100/85 100/85 Pulse Ox 94 95 93 Oxygen Delivery Method Room Air Room Air Room Air [facility] <DIANA Nieto - Last Filed: 03/12/25 19:13> [facility] Narrative Medical decision making narrative: Patient presenting today with extensive laceration to his right first toe after slipping while mowing the lawn and getting his foot caught in the lawnmower. Hehas extensive laceration to the plantar aspect of his right big toe that extendsbetween the 1st and 2nd webspace. He appears to have a complete flexor tendon laceration. X-ray obtained and shows a comminuted fracture of the proximal and distal phalanges. He was given Ancef here as well as IV fluids, Zofran, and morphine for pain. Tetanus updated. Podiatry was consulted, they recommend surgical intervention emergently as he has a high risk of needing the toe amputated in the future. Patient is agreeable with surgery and will be taken tothe OR in stable condition. Lab Data Attestation: I reviewed the patient's lab results. Labs: Laboratory Results - last 24 hr 03/12/25 15:52 WBC 9.8 RBC 4.94 Hgb 15.2 Hct 43.3 MCV 87.7 MCH 30.8 MCHC 35.1 RDW Std Deviation 39.6 RDW Coeff of Dinh 12.4 Plt Count 272 MPV 9.7 Immature Gran % (Auto) 0.200 Neut % (Auto) 40.0 L Lymph % (Auto) 50.4 H [place] % (Auto) 7.7 Eos % (Auto) 1.2 Baso % (Auto) 0.5 Absolute Neuts (auto) 3.9 Absolute Lymphs (auto) 4.95 H Nucleated RBC % 0 Sodium 139 Potassium 3.9 Chloride 101 Carbon Dioxide 19.9 L Anion Gap 18 H BUN 16 Creatinine 1.21 H Estim Creat Clear Calc 108.03 Est GFR (MDRD) Non-Af 83 BUN/Creatinine Ratio 13.6 Glucose 102 H Calcium 9.8 Radiography X-Ray: Read by ED Physician Diagnostic Testing: Clinical Impression(s) from Imaging Studies Foot X-Ray 03/12/25 15:42 IMPRESSION: 1. No radiopaque foreign body. 2. Probable comminuted fracture and laceration of the 1st distal phalanx. Softtissue swelling. Reading Location: [id number] <Dr. Monroe Polk, DO - Last Filed: 03/13/25 00:39> [facility] Lab Data Labs: Laboratory Results - last 24 hr 03/12/25 15:52 WBC 9.8 RBC 4.94 Hgb 15.2 Hct 43.3 MCV 87.7 MCH 30.8 MCHC 35.1 RDW Std Deviation 39.6 RDW Coeff of Dinh 12.4 Plt Count 272 MPV 9.7 Immature Gran % (Auto) 0.200 Neut % (Auto) 40.0 L Lymph % (Auto) 50.4 H [place] % (Auto) 7.7 Eos % (Auto) 1.2 Baso % (Auto) 0.5 Absolute Neuts (auto) 3.9 Absolute Lymphs (auto) 4.95 H Nucleated RBC % 0 Sodium 139 Potassium 3.9 Chloride 101 Carbon Dioxide 19.9 L Anion Gap 18 H BUN 16 Creatinine 1.21 H Estim Creat Clear Calc 108.03 Est GFR (MDRD) Non-Af 83 BUN/Creatinine Ratio 13.6 Glucose 102 H Calcium 9.8 Radiography Diagnostic Testing: Clinical Impression(s) from Imaging Studies Foot X-Ray 03/12/25 15:42 IMPRESSION: 1. No radiopaque foreign body. 2. Probable comminuted fracture and laceration of the 1st distal phalanx. Softtissue swelling. Reading Location: [facility] Treatment and Re-Evaluation Narrative: I have personally performed a face to face assessment of the patient and have reviewed the TIM Note. I performed a substantive portion of the visit including all aspects of the following. My rodriguez findings include: History: Patient presents with injury to his right foot and great toe that occurred today. Patient slipped and fell and cut his toe on a lawnmower blade. Patient states the lawnmower blade cut through his shoe and into his foot. Patient is unsure of his last tetanus. Patient denies any paresthesias or weakness. Exam: There is a large open wound over the plantar aspect of the right great toeextending into the webspace of the 1st and 2nd digits. There is mild bleeding. The condyle of the first metatarsal is visible. The phalanges are dislocated dorsally. Sensation is intact to light touch in all digits. Capillary refill was less than 2 seconds in all digits. Medical Decision Making: Differential diagnosis includes open fracture, dislocation, tendon laceration, and laceration. X-rays of the right foot will be obtained to assess for fracture and dislocation. CBC will be obtained to assess for leukocytosis and anemia. Basic metabolic profile will be obtained toassess for electrolyte abnormality and renal function. Patient was given a tetanus booster. Patient was given Ancef. Patient was given morphine and Zofran. X-rays of the right foot were obtained. There are 2views. On my independent interpretation, there is an open fracture of the distal and proximal phalanges of the right great toe. There is also questionable fracture of the dorsal aspect of the distal portion of the first metatarsal. Case was discussed with Dr. Javier from podiatry. He will take the patient to the operating room. Patient understood and was agreeable with the plan. All questions were answered. Discharge Plan Dx/Rx/DC Orders Clinical Impression: Laceration of right foot, Traumatic dislocation of right great toe, Laceration of muscle and tendon of long flexor muscle of toe at ankle and foot level, rightfoot, initial encounter Disposition Disposition: Acute Care Hospital [facility] Discharge Date/Time: 03/12/25 18:15 What to do if you have Problems For any increased pain, shortness of breath, bleeding, nausea or vomiting, chestpain, or any unexpected problems, contact your Primary Care Provider. Call [facility] ([phone]) or report to the closest Emergency Room. Call 911 if necessary. 03/12/25 1913 <Electronically signed by Olga ORTIZ> Cosigner Signature (if applicable): 03/13/25 0045 <Electronically signed by Monroe Polk DO> CC: Elyse Christie ~ Signed [facility] Work Phone: 1(911) 129-158605-18-2025 Radiology Diagnostic study note [facility] Imaging Services [address] [place] [id number] Foot 2 Views MR#: [id number] Acct: [id number] Name: JAKOB MORRELL Rep #: [id number] : 1995 M 29 From: Lisa Sandhu DO PCP: Elyse Christie Status: ADM APOLINAR Study:Foot 2 Views Date of Exam: 5 Exam# [id number] Ordering Dr: Jose Alberto Javier DPM PROCEDURE: FOOT 2 VIEWS 03/12/2025 REASON FOR EXAM: LACERATION REPAIR, POSSIBLE AMPUTATION TECHNIQUE: 2 fluoroscopic views of the right foot are obtained. Fluoro time of 3 minutes and 41 seconds. COMPARISON: Right foot radiograph from 03/12/2025. FINDINGS: There are postsurgical changes with surgical wires extending through the 1st digit stabilizing the comminuted 1st distal phalanx fracture. RAD/Foot 2 Views IMPRESSION: As above. 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: Signed [facility]05-18-2025 Progress note Author Edward Saldivar [facility] Note Date/Time March 12, 2025 11:23 pm [facility] Medical Records Department [address] [place] [address] Progress Note - Hospitalist 03/12/25 2240 MR#: [id number] Acct: [id number] Name: JAKOB MORRELL Rep #:[id number] : 1995 29 From: Edward Saldivar MD PCP: Elyse Christie Status:ADM APOLINAR Location: MS3 [id number] Reason for Visit Reason for Visit: Diagnoses Onycholysis (03/12/25) Laceration without foreign body, right foot, initial encounter (03/12/25) Unspecified fracture of right toe(s), initial encounter for closed fracture (03/12/25) Unspecified dislocation of right toe(s), initial encounter (03/12/25) Laceration of muscle and tendon of long flexor muscle of toe at ankle and foot level, right foot, initial encounter (03/12/25) Subjective Subjective 29-year-old male with past medical history of bicuspid aortic valve, high blood cholesterol and migraine headaches presented with fracture of distal phalanx of toe of the right foot that he sustained while mowing his lawn, he slipped and his foot went underneath the lawnmower getting caught on the plate,, he was wearing tennis shoes at the time. He underwent surgery today and was seen postoperatively. There is some pain overthe foot, had sore throat following extubation which is better now. After recovery from anesthesia had some nausea but has improved with Zofran. Objective Data Objective Data Vital Signs: Vital Signs Temp Pulse Resp BP Pulse Ox O2 Del Method 97.7 F L 95 16 108/70 98 Room Air 03/12/25 22:12 03/12/25 22:12 03/12/25 22:12 03/12/25 22:12 03/12/25 22:12 03/12/25 22:12 Oxygen Delivery Method Room Air Weight: 214 lb 15.211 oz Body Mass Index (BMI) 29.1 Intake & Output: Intake and Output for Last 24 Hours 03/10/25 03/11/25 03/12/25 23:59 23:59 23:59 Intake Total 1000 / 1000 Balance 1000 / 1000 Lab / Micro Data Attestation: I reviewed the patient's lab results. 03/12/25 15:52 03/12/25 15:52 Labs: Laboratory Results - last 24 hr 03/12/25 15:52: WBC 9.8, RBC 4.94, Hgb 15.2, Hct 43.3, MCV 87.7, MCH 30.8, MCHC 35.1, RDW Std Deviation 39.6, RDW Coeff of Dinh 12.4, Plt Count 272, MPV 9.7, Immature Gran % (Auto) 0.200, Neut % (Auto) 40.0 L, Lymph % (Auto) 50.4 H, [place] % (Auto) 7.7, Eos % (Auto) 1.2, Baso % (Auto) 0.5, Absolute Neuts (auto) 3.9, Absolute Lymphs (auto) 4.95 H, Nucleated RBC % 0, Sodium 139, Potassium 3.9, Chloride 101, Carbon Dioxide 19.9 L, Anion Gap 18 H, BUN 16, Creatinine 1.21 H, Estim Creat Clear Calc 108.03, Est GFR (MDRD) Non-Af 83, BUN/Creatinine Ratio 13.6, Glucose 102 H, Calcium 9.8 Radiography Diagnostic Testing: Radiology Impression Foot X-Ray 03/12/25 15:42 IMPRESSION: 1. No radiopaque foreign body. 2. Probable comminuted fracture and laceration of the 1st distal phalanx. Softtissue swelling. Reading Location: [facility] Physical Exam Const alert and oriented x3 HEENT Mouth: oral and palatal mucosa normal Eyes PERRL Neck no lymphadenopathy Resp normal respiratory effort and no retractions Cardio regular rate and regular rhythm Cardio Narrative: Ejection systolic murmur present GI normal to inspection, nondistended, normoactive bowel sounds Extremity normal to inspection Extremity Narrative: Could not examine the right foot as it was dressed after surgery Neuro oriented x3, CN's II-XII intact bilaterally, moves all extremities and no focal motor deficits Psych affect normal Assessment & Plan Assessment/Plan (1) Laceration of muscle and tendon of long flexor muscle of toe at ankle and foot level, right foot, initial encounter: PLAN: Plan 29-year-old male with past medical history of bicuspid aortic valve, high blood cholesterol and migraine headaches presented with fracture of distal phalanx of toe of the right foot that he sustained while mowing his lawn, he slipped and his foot went underneath the lawnmower getting caught on the plate,, he was wearing tennis shoes at the time. For his laceration he underwent nail avulsion of the right hallux, repair of thelacerated tendon, flexor hallucis longus, close reduction and pinning of the dislocated first metatarsophalangeal joint, percutaneous pinning of the avulsionfracture, advancement flap closure. Postprocedure he started on cefazolin and Zosyn for prophylaxis. His WBCs from 9.8, hemoglobin 15.2, platelet count 272, sodium 139, potassium 3.9, BUN 16, creatinine 1.2, glucose 102. # Right foot laceration - Underwent surgery today - Continue Zosyn plus cefazolin to prevent any surgical site infection - If white count stable can transition to p.o. antibiotics tomorrow #Bicuspid aortic valve - Not on medications-blood pressure stable - Continue to monitor #Migraine - Only takes as needed medications - No concerns at this time - Continue to monitor #Dyslipidemia - Outpatient follow-up with primary care #DVT - Moderate risk - Start enoxaparin 40 mg subcu after considered okay for prophylactic anticoagulation by surgery team 03/12/25 0449 <Electronically signed by Edward Saldivar MD> Cosigner Signature (if applicable): CC: ~ Signed [facility] Work Phone: 1(266) 571-783405-18-2025 Discharge summary [facility] Medical Records Department [address] [place] [address] Emergency Department Summary 03/12/25 MR#: [id number] Acct: [id number] Name: JAKOB MORRELL Rep #:[id number] : 1995 29 From: Olga ORTIZ PCP: Elyse Christie Status:ADM APOLINAR Location: [address] History of Present Illness Chief Complaint: Laceration Narrative Narrative: Patient presents today with a laceration to his right foot that he sustained this afternoon while mowing the lawn. He reports that he slipped and his foot went underneath the lawnmower getting caughton the blade. He was wearing tennis shoes. He is unsure of his last tetanus update. He is not on any blood thinners. He denies any other injury. [facility] Medical History Bicuspid aortic valve High blood cholesterol Medical History no medical history Home Medications ?Medication ?Instructions ?Recorded ?Last Taken ?Type multivitamin (Daily Multi-Vitamin 1 tab PO DAILY suppl ement 03/12/25 03/12/25 History tablet) omega 7-fla-lmy-fish oil 1,200 mg 2 cap PO DAILY suppl ement 03/12/25 03/11/25 History (144 mg-216 mg) capsule (Fish Oil) sumatriptan succinate 50 mg tablet 50 mg PO PRN PRN mi graine headache 03/12/25 Unknown History Allergy/AdvReac Type Severity Reaction Status Date / Time No Known Allergies Allergy Verified 03/12/25 15:38 Family History no significant family his Surgical History no surgical history Social History Smoking Status: Never smoker ROS ROS ED Constitutional Constitutional ED: Denies chills or fever(s) Cardiovascular Cardiovascular: Denies chest pain Respiratory/Chest Respiratory/Chest: Denies dyspnea Musculoskeletal Musculoskeletal: Reports arthralgias Integumentary Reports laceration Neurologic Neurologic: Denies paresthesias EXAM Physical Exam Const Vital Signs: 03/12/25 15:35 03/12/25 16:35 03/12/25 16:57 Temperature 97.9 F Temperature Source Temporal Pulse Rate 112 H 71 79 Respiratory Rate 24 H 11 L 19 H Respiratory Pattern Blood Pressure 94/64 113/84 H Blood Pressure Mean 74 93 Blood Pressure Source Blood Pressure Position Blood Pressure Location Baseline BP Pulse Ox 98 100 100 Oxygen Delivery Method Room Air Room Air Room Air 03/12/25 17:00 03/12/25 18:00 03/12/25 18:10 Temperature 97.9 F Temperature Source Pulse Rate 82 92 92 Respiratory Rate 18 14 14 Respiratory Pattern Blood Pressure 108/83 H 100/85 H 100/85 H Blood Pressure Mean 91 90 90 Blood Pressure Source Blood Pressure Position Blood Pressure Location Baseline BP Pulse Ox 100 99 99 Oxygen Delivery Method Room Air Room Air 03/12/25 20:22 03/12/25 21:00 03/12/25 21:03 Temperature 97.9 F 97 F L 97 F L Temperature Source Temporal Pulse Rate 92 101 H 112 H Respiratory Rate 14 16 16 Respiratory Pattern Normal Blood Pressure 100/85 H 117/77 117/77 Blood Pressure Mean 90 Blood Pressure Source Monitor Blood Pressure Position Semi-Fowlers Blood Pressure Location Left Arm Baseline BP 100/85 Pulse Ox 99 97 96 Oxygen Delivery Method Room Air 03/12/25 21:05 03/12/25 21:10 03/12/25 21:15 Temperature Temperature Source Pulse Rate 112 H 108 H 104 H Respiratory Rate 16 16 16 Respiratory Pattern Blood Pressure 127/72 H 126/80 H 131/85 H Blood Pressure Mean 90 95 100 Blood Pressure Source Monitor Monitor Monitor Blood Pressure Position Semi-Fowlers Semi-Fowlers Semi-Fowlers Blood Pressure Location Left Arm Left Arm Left Arm Baseline BP 100/85 100/85 100/85 Pulse Ox 94 95 93 Oxygen Delivery Method Room Air Room Air Room Air Positive well nourished, well developed and no apparent distress General Appearance ED: well developed HEENT Reports normocephalic and head/scalp atraumatic Mouth ED: Yes moist mucous membranes normal Eyes PERRL and EOMs intact bilaterally Neck full ROM and supple Chest Wall inspection of chest normal Resp normal respiratory effort and clear to auscultation bilaterally Cardio regular rate and regular rhythm Back/Spine normal ROM and normal to inspection Extremity Extremity Narrative: Large full-thickness complex laceration extending from the plantar aspect of theleft big toe through the webspace between the 1st and 2nd toes. Complete flexortendon laceration. He does have intact cap refill and sensation. Minimal active bleeding. Neuro oriented x3, CN's II-XII intact bilaterally, moves all extremities, no focal motor deficits and no sensory deficits noted Sensorium / Orientation: awake and alert Psych mental status grossly normal and thought process normal Skin no rashes or lesions noted and no wounds Physical Exam Const Vital Signs: 03/12/25 15:35 03/12/25 16:35 03/12/25 16:57 Temperature 97.9 F Temperature Source Temporal Pulse Rate 112 H 71 79 Respiratory Rate 24 H 11 L 19 H Respiratory Pattern Blood Pressure 94/64 113/84 H Blood Pressure Mean 74 93 Blood Pressure Source Blood Pressure Position Blood Pressure Location Baseline BP Pulse Ox 98 100 100 Oxygen Delivery Method Room Air Room Air Room Air 03/12/25 17:00 03/12/25 18:00 03/12/25 18:10 Temperature 97.9 F Temperature Source Pulse Rate 82 92 92 Respiratory Rate 18 14 14 Respiratory Pattern Blood Pressure 108/83 H 100/85 H 100/85 H Blood Pressure Mean 91 90 90 Blood Pressure Source Blood Pressure Position Blood Pressure Location Baseline BP Pulse Ox 100 99 99 Oxygen Delivery Method Room Air Room Air 03/12/25 20:22 03/12/25 21:00 03/12/25 21:03 Temperature 97.9 F 97 F L 97 F L Temperature Source Temporal Pulse Rate 92 101 H 112 H Respiratory Rate 14 16 16 Respiratory Pattern Normal Blood Pressure 100/85 H 117/77 117/77 Blood Pressure Mean 90 Blood Pressure Source Monitor Blood Pressure Position Semi-Fowlers Blood Pressure Location Left Arm Baseline BP 100/85 Pulse Ox 99 97 96 Oxygen Delivery Method Room Air 03/12/25 21:05 03/12/25 21:10 03/12/25 21:15 Temperature Temperature Source Pulse Rate 112 H 108 H 104 H Respiratory Rate 16 16 16 Respiratory Pattern Blood Pressure 127/72 H 126/80 H 131/85 H Blood Pressure Mean 90 95 100 Blood Pressure Source Monitor Monitor Monitor Blood Pressure Position Semi-Fowlers Semi-Fowlers Semi-Fowlers Blood Pressure Location Left Arm Left Arm Left Arm Baseline BP 100/85 100/85 100/85 Pulse Ox 94 95 93 Oxygen Delivery Method Room Air Room Air Room Air MDM MDM MDM Narrative Medical decision making narrative: Patient presenting today with extensive laceration to his right first toe after slipping while mowing the lawn and getting his foot caught in the lawnmower. Hehas extensive laceration to the plantar aspect of his right big toe that extendsbetween the 1st and 2nd webspace. He appears to have a complete flexor tendon laceration. X-ray obtained and shows a comminuted fracture of the proximal and distal phalanges. He was given Ancef here as well as IV fluids, Zofran, and morphine for pain. Tetanus updated. Podiatry was consulted, they recommend surgical intervention emergently as he has a high risk of needing the toe amputated in the future. Patient is agreeable with surgery and will be taken tothe OR in stable condition. Lab Data Attestation: I reviewed the patient's lab results. Labs: Laboratory Results - last 24 hr 03/12/25 15:52 WBC 9.8 RBC 4.94 Hgb 15.2 Hct 43.3 MCV 87.7 MCH 30.8 MCHC 35.1 RDW Std Deviation 39.6 RDW Coeff of Dinh 12.4 Plt Count 272 MPV 9.7 Immature Gran % (Auto) 0.200 Neut % (Auto) 40.0 L Lymph % (Auto) 50.4 H Greenbrier % (Auto) 7.7 Eos % (Auto) 1.2 Baso % (Auto) 0.5 Absolute Neuts (auto) 3.9 Absolute Lymphs (auto) 4.95 H Nucleated RBC % 0 Sodium 139 Potassium 3.9 Chloride 101 Carbon Dioxide 19.9 L Anion Gap 18 H BUN 16 Creatinine 1.21 H Estim Creat Clear Calc 108.03 Est GFR (MDRD) Non-Af 83 BUN/Creatinine Ratio 13.6 Glucose 102 H Calcium 9.8 Radiography X-Ray: Read by ED Physician Diagnostic Testing: Clinical Impression(s) from Imaging Studies Foot X-Ray 03/12/25 15:42 IMPRESSION: 1. No radiopaque foreign body. 2. Probable comminuted fracture and laceration of the 1st distal phalanx. Softtissue swelling. Reading Location: [facility] Lab Data Labs: Laboratory Results - last 24 hr 03/12/25 15:52 WBC 9.8 RBC 4.94 Hgb 15.2 Hct 43.3 MCV 87.7 MCH 30.8 MCHC 35.1 RDW Std Deviation 39.6 RDW Coeff of Dinh 12.4 Plt Count 272 MPV 9.7 Immature Gran % (Auto) 0.200 Neut % (Auto) 40.0 L Lymph % (Auto) 50.4 H Greenb[place] % (Auto) 7.7 Eos % (Auto) 1.2 Baso % (Auto) 0.5 Absolute Neuts (auto) 3.9 Absolute Lymphs (auto) 4.95 H Nucleated RBC % 0 Sodium 139 Potassium 3.9 Chloride 101 Carbon Dioxide 19.9 L Anion Gap 18 H BUN 16 Creatinine 1.21 H Estim Creat Clear Calc 108.03 Est GFR (MDRD) Non-Af 83 BUN/Creatinine Ratio 13.6 Glucose 102 H Calcium 9.8 Radiography Diagnostic Testing: Clinical Impression(s) from Imaging Studies Foot X-Ray 03/12/25 15:42 IMPRESSION: 1. No radiopaque foreign body. 2. Probable comminuted fracture and laceration of the 1st distal phalanx. Softtissue swelling. Reading Location: [facility] Treatment and Re-Evaluation Narrative: I have personally performed a face to face assessment of the patient and have reviewed the TIM Note. I performed a substantive portion of the visit including all aspects of the following. My rodriguez findings include: History: Patient presents with injury to his right foot and great toe that occurred today. Patient slipped and fell and cut his toe on a lawnmower blade. Patient states the lawnmower blade cut through his shoe and into his foot. Patient is unsure of his last tetanus. Patient denies any paresthesiasor weakness. Exam: There is a large open wound over the plantar aspect of the right great toeextending into the webspace of the 1st and 2nd digits. There is mild bleeding. The condyle of the first metatarsal is visible. The phalanges are dislocated dorsally. Sensation is intact to light touch in all digits. Capillary refill was less than 2 seconds in all digits. Medical Decision Making: Differential diagnosis includes open fracture, dislocation, tendon laceration, and laceration. X-rays of the right foot will be obtained to assess for fracture and dislocation. CBC will be obtained to assess for leukocytosis and anemia. Basic metabolic profile will be obtained toassess for electrolyte abnormality and renal function. Patient was given a tetanus booster. Patient was given Ancef. Patient was given morphine and Zofran. X-rays of the right foot were obtained. There are 2views. On my independent interpretation, there is an open fracture of the distal and proximal phalanges of the right great toe. There is also questionable fracture of the dorsal aspect of the distal portion of the first metatarsal. Case was discussed with Dr. Javier from podiatry. He will take the patient to the operating room. Patient understood and was agreeable with the plan. All questions were answered. Discharge Plan Dx/Rx/DC Orders Clinical Impression: Laceration of right foot, Traumatic dislocation of right great toe, Laceration of muscle and tendonof long flexor muscle of toe at ankle and foot level, rightfoot, initial encounter Disposition Disposition: Acute Care Hospital [facility] Discharge Date/Time: 03/12/25 18:15 What to do if you have Problems For any increased pain, shortness of breath, bleeding, nausea or vomiting, chestpain, or any unexpected problems, contact your Primary Care Provider. Call [facility] ([phone]) or report tothe closest Emergency Room. Call 911 if necessary. 03/12/25 191 Cosigner Signature (if applicable): 03/13/25 0045 CC: Elyse Christie ~ Signed [facility]05-17-2025 Consult note Author David Javier [facility] Note Date/Time March 12, 2025 9:42p m [facility] Medical Records Department [address] [place] [address] Consultation 03/12/25 180 MR#: [id number] Acct: [id number] Name: JAKOB MORRELL Rep #:[id number] : 1995 29 From: David Stovall PM PCP: Elyse Christie Status:REG [facility] Location: [facility] Assessment & Plan Assessment/Plan (1) Laceration of right foot: QUALIFIERS: Encounter type: initial encounter Qualified Code(s): S91.311A - Laceration without foreign body, right foot, initial encounter PLAN: Patient was examined evaluated. All findings were discussed with the patient. All questions were answered to the patient satisfaction. Right foot radiograph: Review of the radiographs show evidence of a dislocated first metatarsal phalangeal joint of the right foot with evidence of some comminution appreciated to the proximal phalanx and distal phalanx. Increase insoft tissue volume without defect. No emphysema appreciated. Long discussion emergency room regarding surgical intervention at this time withrepair of the lacerated tendon as well as close reduction and pinning of the dislocated first metatarsal phalangeal joint of the right foot and advancement flap closure. Patient was agreeable and we will move forward with emergency surgery today. All risk and benefits were discussed with the patient and his in great detail. It was also discussed with the patient that he is at riskfor a amputation if the skin and underlying soft tissue demarcates and is not viable over the next upcoming days which she was understanding of. After surgery he will be admitted for approximately 48 hours and then discharge and will follow-up in private office for additional surgery as needed. Tetanus status was updated in the emergency room. Medicine: Consult pending Podiatry will follow patient as primary while in house and will discharge in approximately 24 to 48 hours. Please reach out to Dr. Javier with any questions or concerns. (2) Traumatic dislocation of right great toe: QUALIFIERS: Encounter type: initial encounter Qualified Code(s): S93.104A - Unspecified dislocation of right toe(s), initial encounter (3) Laceration of muscle and tendon of long flexor muscle of toe at ankle and foot level, right foot, initial encounter: HPI Consult Data Date of Consult: 03/12/25 HPI Narrative Reason for Consultation: Open laceration, right foot HPI Narrative: JAKOB MORRELL, is a 29 M who presented presented to the [facility] emergency room approximately 2 hours ago with open laceration to the right foot with dislocation of the the first metatarsal phalangeal joint. Patient sustained an injury due to coming in contact with a moving lawnmower. He was cutting his mom's grass and his foot went underneath the lawnmower getting caught on the blade. He was wearing tennis shoes. He is unsure if he slipped or fell and stated that it happened so fast, he then ended up with a laceration presenting to the emergency room for evaluation. Overall the patientis healthy. He does have high cholesterol and a bicuspid aortic valve. His tetanus status was updated during the emergency room initial consultation. He denies any additional trauma. Denies constitutional symptoms. No other pedal complaints at this time. [facility] Medical History Bicuspid aortic valve High blood cholesterol Medical History no medical history Home Medications ?Medication ?Instructions ?Recorded ?Last Taken ?Type multivitamin (Daily Multi-Vitamin 1 tab PO DAILY suppl ement 03/12/25 03/12/25 History tablet) omega 3-dhq-upd-fish oil 1,200 mg 2 cap PO DAILY suppl ement 03/12/25 03/11/25 History (144 mg-216 mg) capsule (Fish Oil) sumatriptan succinate 50 mg tablet 50 mg PO PRN PRN mi graine headache 03/12/25 Unknown History Allergy/AdvReac Type Severity Reaction Status Date / Time No Known Allergies Allergy Verified 03/12/25 15:38 Family History no significant family his Surgical History no surgical history Social History Smoking Status: Never smoker Physical Exam Narrative Vascular: DP and PT pulses are palpable to the right lower extremity. CFT is brisk to the right hallux and lesser digits. Skin temp great is warm to warm from proximal ankle to distal digits on the right lower extremity. Neurological: Light touch intact. Patient does despond painful stimuli. Dermatological: Large laceration at the plantar aspect of the first metatarsophalangeal joint with sanguinous drainage and exposed first metatarsal head. No malodor is appreciated. Evidence of mild debris is present. Musculoskeletal: Mild to moderate palpatory tenderness appreciated a full- thickness laceration to the right foot. Active and passive range of motion lesser digits pain-free. Attempted to palpate the hallux is painful. No pain with calf pressure. Const alert, oriented x3 and no apparent distress General Appearance: cooperative, comfortable and well kempt Orientation / Consciousness: awake Lab / Micro Data 03/12/25 15:52 03/12/25 15:52 Labs: Laboratory Results - last 24 hr 03/12/25 15:52: WBC 9.8, RBC 4.94, Hgb 15.2, Hct 43.3, MCV 87.7, MCH 30.8, MCHC 35.1, RDW Std Deviation 39.6, RDW Coeff of Dinh 12.4, Plt Count 272, MPV 9.7, Immature Gran % (Auto) 0.200, Neut % (Auto) 40.0 L, Lymph % (Auto) 50.4 H, Greenbrier % (Auto) 7.7, Eos % (Auto) 1.2, Baso % (Auto) 0.5, Absolute Neuts (auto) 3.9, Absolute Lymphs (auto) 4.95 H, Nucleated RBC % 0, Sodium 139, Potassium 3.9, Chloride 101, Carbon Dioxide 19.9 L, Anion Gap 18 H, BUN 16, Creatinine 1.21 H, Estim Creat Clear Calc 108.03, Est GFR (MDRD) Non-Af 83, BUN/Creatinine Ratio 13.6, Glucose 102 H, Calcium 9.8 Imaging Radiology Impression Foot X-Ray 03/12/25 15:42 IMPRESSION: 1. No radiopaque foreign body. 2. Probable comminuted fracture and laceration of the 1st distal phalanx. Softtissue swelling. Reading Location: [id number] 03/12/252141 <Electronically signed by David Javier DPM> Cosigner Signature (if applicable): CC: Elyse Christie~ Signed [facility] Work Phone: 1(525) 343-123305-17-2025 Progress note [facility] Medical Records Department [address] [place] [address] Progress Note - Hospitalist 03/12/250 MR#: [id number] Acct: [id number] Name: JAKOB MORRELL Rep #:[id number] : 1995 29 From: Edward Saldivar MD PCP: Elyse Christie Status:ADM APOLINAR Location: MS3 [id number] Reason for Visit Reason for Visit: Diagnoses Onycholysis (03/12/25) Laceration without foreign body, right foot, initial encounter (03/12/25) Unspecified fracture of right toe(s), initial encounter for closed fracture (03/12/25) Unspecified dislocation of right toe(s), initial encounter (03/12/25) Laceration of muscle and tendon of long flexor muscle of toe at ankle and foot level, right foot, initial encounter (03/12/25) Subjective Subjective 29-year-old male with past medical history of bicuspid aortic valve, high blood cholesterol and migraine headaches presented with fracture of distal phalanx of toe of the right foot that he sustainedwhile mowing his lawn, he slipped and his foot went underneath the lawnmower getting caught on the plate,, he was wearing tennis shoes at the time. He underwent surgery today and was seen postoperatively. There is some pain overthe foot, had sore throat following extubation which is better now. After recovery from anesthesia had some nausea but has improved with Zofran. Objective Data Objective Data Vital Signs: Vital Signs Temp Pulse Resp BP Pulse Ox O2 Del Method 97.7 F L 95 16 108/70 98 Room Air 03/12/25 22:12 03/12/25 22:12 03/12/25 22:12 03/12/25 22:12 03/12/25 22:12 03/12/25 22:12 Oxygen Delivery Method Room Air Weight: 214 lb 15.211 oz Body Mass Index (BMI) 29.1 Intake & Output: Intake and Output for Last 24 Hours 03/10/25 03/11/25 03/12/25 23:59 23:59 23:59 Intake Total 1000 / 1000 Balance 1000 / 1000 Lab / Micro Data Attestation: I reviewed the patient's lab results. 03/12/25 15:52 03/12/25 15:52 Labs: Laboratory Results - last 24 hr 03/12/25 15:52: WBC 9.8, RBC 4.94, Hgb 15.2, Hct 43.3, MCV 87.7, MCH 30.8, MCHC 35.1, RDW Std Deviation 39.6, RDW Coeff of Dinh 12.4, Plt Count 272, MPV 9.7, Immature Gran % (Auto) 0.200, Neut % (Auto) 40.0 L, Lymph % (Auto) 50.4 H, Greenbrier % (Auto) 7.7, Eos % (Auto) 1.2, Baso % (Auto) 0.5, Absolute Neuts (auto) 3.9, Absolute Lymphs (auto) 4.95 H, Nucleated RBC % 0, Sodium 139, Potassium 3.9, Chloride 101, Carbon Dioxide 19.9 L, Anion Gap 18 H, BUN 16, Creatinine 1.21 H, Estim Creat Clear Calc 108.03, Est GFR (MDRD) Non-Af 83, BUN/Creatinine Ratio 13.6, Glucose 102 H, Calcium 9.8 Radiography Diagnostic Testing: Radiology Impression Foot X-Ray 03/12/25 15:42 IMPRESSION: 1. No radiopaque foreign body. 2. Probable comminuted fracture and laceration of the 1st distal phalanx. Softtissue swelling. Reading Location: [facility] Physical Exam Const alert and oriented x3 HEENT Mouth: oral and palatal mucosa normal Eyes PERRL Neck no lymphadenopathy Resp normal respiratory effort and no retractions Cardio regular rate and regular rhythm Cardio Narrative: Ejection systolic murmur present GI normal to inspection, nondistended, normoactive bowel sounds Extremity normal to inspection Extremity Narrative: Could not examine the right foot as it was dressed after surgery Neuro oriented x3, CN's II-XII intact bilaterally, moves all extremities and no focal motor deficits Psych affect normal Assessment & Plan Assessment/Plan (1) Laceration of muscle and tendon of long flexor muscle of toe at ankle and foot level, right foot, initial encounter: PLAN: Plan 29-year-old male with past medical history of bicuspid aortic valve, high blood cholesterol and migraine headaches presented with fracture of distal phalanx of toe of the right foot that he sustainedwhile mowing his lawn, he slipped and his foot went underneath the lawnmower getting caught on the plate,, he was wearing tennis shoes at the time. For his laceration he underwent nail avulsion of the right hallux, repair of thelacerated tendon, flexor hallucis longus, close reduction and pinning of the dislocated first metatarsophalangeal joint, percutaneous pinning of the avulsionfracture, advancement flap closure. Postprocedure he started on cefazolin and Zosyn for prophylaxis. His WBCs from 9.8, hemoglobin 15.2, platelet count 272, sodium 139, potassium 3.9, BUN 16, creatinine 1.2, glucose 102. # Right foot laceration - Underwent surgery today - Continue Zosyn plus cefazolin to prevent any surgical site infection - If white count stable can transition to p.o. antibiotics tomorrow #Bicuspid aortic valve - Not on medications-blood pressure stable - Continue to monitor #Migraine - Only takes as needed medications - No concerns at this time - Continue to monitor #Dyslipidemia - Outpatient follow-up with primary care #DVT - Moderate risk - Start enoxaparin 40 mg subcu after considered okay for prophylactic anticoagulation by surgery team 03/12/25 3763 Cosigner Signature (if applicable): CC: ~ Signed [facility]05-17-2025 Consult note Author Monroe Mills [facility] Note Date/Time March 12, 2025 9:04p m [facility] Medical Records Department [address] [place] [address] Anesthesia Postop Eval II 03/12/253 MR#: [id number] Acct: [id number] Name: JAKOB MORRELL Rep #:[id number] : 1995 29 From: Monroe Mills MD PCP: Elyse Christie Status:REG SDC Y Race: C Location: [facility] Anesthesia Postop Eval I Sum Postop Eval Completion status Anesthesia document: Postop Eval 1 completed: Yes Anesthesia Postop Eval I Summary Anesthesia Postop Eval I Summary: Anesthesia Postop Eval I: Assessment Summary Airway patent Yes 03/12/25 21:03 Spontaneous unlabored Yes 03/12/25 21:03 respirations Mental status nausea No 03/12/25 21:03 Vomiting No 03/12/25 21:03 Anesthesia Postop Eval I: Fluid Summary Crystalloid volume administer 1,500 03/12/25 21:03 (ml) Colloids volume administered ( ml) Blood Product volume administered (ml) Total IV fluid infused 1,500 03/12/25 21:03 Anesthesia Postop Eval I: Summary Notes Anesthesia Complication No 03/12/25 21:03 Anesthesia Complication Comment: Post-operative progress note Anesthesia: Postop Eval II Evaluation Mental status: Awake Pain Level: 0 nausea: No Vomiting: No 03/12/252103 <Electronically signed by Monroe Mills MD> Date _ Monroe Mills MD Cosigner Signature: Date CC: ~ Signed [facility] Work Phone: 1(213) 966-149605-17-2025 Consult note Author Monroe Mills [facility] Note Date/Time March 12, 2025 9:03p [facility] Medical Records Department [address] [place] [address] Anesthesia Postop Eval I 03/12/252101 MR#: [id number] Acct: [id number] Name: JAKOB MORERLL Rep #:[id number] : 1995 29 From: Monroe Mills MD PCP: Elyse Christie Status:REG [facility] Y Race: C Location: [facility] Anesthesia: Postop Eval I Current Vital Signs Temperature: 97 F Pulse Rate: 112 Blood Pressure: 117/77 Respiratory Rate: 16 Pulse Ox: 96 Assessment Airway patent: Yes Spontaneous unlabored respirations: Yes nausea: No Vomiting: No Anesthesia Complication: No Fluid Hydration Crystalloid volume administer (ml): 1,500 Total IV fluid infused: 1,500 Progress Note Anesthesia document: Postop Eval 1 completed: Yes 03/12/252102 <Electronically signed by Monroe Mills MD> Date _ Monroe Mills MD Cosigner Signature: Date CC: ~ Signed [facility] Work Phone: 1(750) 942-172405-17-2025 Consult note Author Monroe [facility] Note Date/Time March 12, 2025 8:23p [facility] Medical Records Department [address] [place] [id number] Pre-Anesthesia Evaluation 03/12/252020 MR#: [id number] Acct: [id number] Name: JAKOB MORRELL Rep #:[id number] : 1995 29 From: Monroe Mills MD PCP: Elyse Christie Status:REG SDC Y Race: C Location: [facility] ASA Classification* ASA Classification ASA Classification: 2 and E Assessment & Plan Anesthesia* Anesthesia Assessment Anesthesia Assessment: Discussed sedation and/or anesthesia options, risks, benefits, and alternatives with patient/parents/legal guardian/POA. Questions invited. The patient/parents/legal guardian/POA seems to understand and agrees to proceedwith anesthesia plan. Reviewed the physical assessment, medical history, allergy history and patient home medications list prior to surgery/procedure/anesthetic and documented any changes. Performed airway and anesthesia risk assessments. Anesthesia Type Anesthesia Type: General (glidescope/rsi) Anesthesia Focused Assessment* Temperature: 97.9 F Pulse Rate: 92 Blood Pressure: 100/85 Respiratory Rate: 14 Pulse Ox: 99 Airway Assessment Mouth opens: >3 cm Mallampati Score: II Focused Labs Anesthesia Preop lab: CBC WBC 9.8 K/mm3 (4.4-11.0) 03/12/25 15:52 03/12/25 RBC 4.94 M/mm3 (4.6-6.2) 03/12/25 15:52 03/12/25 Hgb 15.2 g/dL (13.0-16.5) 03/12/25 15:52 03/12/25 Hct 43.3 % (40-54) 03/12/25 15:52 03/12/25 Plt Count 272 K/mm3 (150-450) 03/12/25 15:52 03/12/25 CHEMISTRY Potassium 3.9 mmol/L (3.3-5.1) 03/12/25 15:52 03/12/25 Sodium 139 mmol/L (133-145) 03/12/25 15:52 03/12/25 BUN 16 mg/dL (4-19) 03/12/25 15:52 03/12/25 Creatinine 1.21 mg/dL (0.70-1.20) H 03/12/25 15:52 Glucose 102 mg/dL (70-99) H 03/12/25 15:52 03/12/25 COAG Pre-Assessment Diagnosis/Proposed Procedure Planned Operative Procedure(s): Repair of laceraTION OF RIGHT GREAT TOE Anesthesia History 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 When Was Last Pacemaker Check QUESTION #4 FULL TEXT: You/Your Family Experience fever (hyperthermia) with Anesthesia Last Oral Intake Last Oral intake: Last Oral Intake NPO since Meds taken in AM with sips of water? Meds patient instructed to take am of surgery PONV PONV - animal physiology teacher: PONV - animal physiology teacher Female HX of Motion Sickness HX of N/V After Surgery Non-Smoker Duration of Surgery greater than 60 minutes Number of Risk Factors PONV Score Height & Weight Height & Weight: Anesthesia: Height & Weight Height 6 ft 03/12/25 15:35 Weight: 97.5 kg 03/12/25 15:38 Body Mass Index (BMI) 29.1 03/12/25 15:38 Respiratory Assessment Respiratory Assessment - animal physiology teacher: Respiratory Tract Infection Hx - animal physiology teacher Hx Respiratory Tract Infection STOP Sleep Apnea STOP Sleep Apnea - animal physiology teacher: STOP Sleep Apnea - animal physiology teacher Hx Hypertension No 08/01/15 14:23 Hx Sleep Apnea CPAP BIPAP Do you snore loudly (louder than talking or can be heard Do you often feel tired/ fatigued/ sleepy during daytime? Has anyone observed you stop breathing during sleep? STOP Results QUESTION #5 FULL TEXT : Do you snore loudly (louder than talking or can be heard through closed doors)? Tobacco Use History Tobacco Use History - animal physiology teacher: Tobacco Use History - animal physiology teacher Tobacco Use Smoking Status Never smoker 03/12/25 15:52 Hx Tobacco Use Years Smoking Packs Smoked per Day Smoking Cessation Date was within the last 15 years Hx Smoking Cessation Date Hx Smoking Cessation Counseling Hematologic Medial History Hematologic Hx - animal physiology teacher: Hematologic Medical Hx - helper coordinator Hx of Blood Transfusion Hx of Transfusion in last 3 Months Date of Last Transfusion (if within last 3 months) Ever experience any problems with transfusion(s)? Specify any problems Hx of Preganancy in last 3 Months Nurse Filling Out Transfusion & Questions: Date: Time: Patient unable to answer at this time (ie. confused, unrespo /Reproduction History /Reproductive History - animal physiology teacher: /Reproductive Hx- animal physiology teacher Hx Now Gestational Age (in weeks): EDC: Hx Hx Para Hx Section SAB PFSH Medical History Bicuspid aortic valve High blood cholesterol Medical History no medical history Home Medications ?Medication ?Instructions ?Recorded ?Last Taken ?Type multivitamin (Daily Multi-Vitamin 1 tab PO DAILY 03/1203/12/25 History tablet) omega 3-lgf-cwl-fish oil 1,200 mg 2 cap PO DAILY 03/1203/11/25 History (144 mg-216 mg) capsule (Fish Oil) sumatriptan succinate 50 mg tablet 50 mg PO PRN PRN mi graine headache 03/12/25 Unknown History Allergy/AdvReac Type Severity Reaction Status Date / Time No Known Allergies Allergy Verified 03/12/25 15:38 Family History no significant family his Surgical History no surgical history Social History Smoking Status: Never smoker Review of Systems (Anesthesia) ROS Narrative System reviewed and no additional complaints, except as documented. 03/12/252022 <Electronically signed by Monroe Mills MD> Date _ Monroe Mills MD Cosigner Signature: Date CC: ~ Signed [facility] Work Phone: [phone] Consult note [facility] Medical Records Department [address] [place] [id number] Consultation 03/12/25 1805 MR#: [id number] Acct: [id number] Name: JAKOB MORRELL Rep #:[id number] : 1995 29 From: David Stovall PM PCP: Elyse Christie Status:REG [facility] Location: [facility] Assessment & Plan Assessment/Plan (1) Laceration of right foot: QUALIFIERS: Encounter type: initial encounter Qualified Code(s): S91.311A - Laceration without foreign body, right foot, initial encounter PLAN: Patient was examined evaluated. All findings were discussed with the patient. All questions were answered to the patient satisfaction. Right foot radiograph: Review of the radiographs show evidence of a dislocated first metatarsal phalangeal joint of the right foot with evidence of some comminution appreciated to the proximal phalanx and distal phalanx. Increase insoft tissue volume without defect. No emphysema appreciated. Long discussion emergency room regarding surgical intervention at this time withrepair of the lacerated tendon as well as close reduction and pinning of the dislocated first metatarsal phalangeal joint of the right foot and advancement flap closure. Patient was agreeable and we will move forward with emergency surgery today. All risk and benefits were discussed with the patient and his in great detail. It was also discussed with the patient that he is at riskfor a amputation if the skin and underlying soft tissue demarcates and is not viable over the next upcoming days which she was understanding of. After surgery he will be admitted for approximately 48 hours and then discharge and will follow-up in private office for additional surgery as needed. Tetanus status was updated in the emergency room. Medicine: Consult pending Podiatry will follow patient as primary while in house and will discharge in approximately 24 to 48hours. Please reach out to Dr. Javier with any questions or concerns. (2) Traumatic dislocation of right great toe: QUALIFIERS: Encounter type: initial encounter Qualified Code(s): S93.104A - Unspecified dislocationof right toe(s), initial encounter (3) Laceration of muscle and tendon of long flexor muscle of toe at ankle and foot level, right foot, initial encounter: HPI Consult Data Date of Consult: 03/12/25 HPI Narrative Reason for Consultation: Open laceration, right foot HPI Narrative: JAKOB MORRELL, is a 29 M who presented presented to the [facility] emergency room approximately 2 hours ago with open laceration to the right foot with dislocation of the the first metatarsal phalangeal joint. Patient sustained an injury due to coming in contact with a moving lawnmower. He was cutting his mom's grass and his foot went underneath the lawnmower getting caught on theblade. He was wearing tennis shoes. He is unsure if he slipped or fell and stated that it happened so fast, he then ended up with a laceration presenting to the emergency room for evaluation. Overallthe patientis healthy. He does have high cholesterol and a bicuspid aortic valve. His tetanus status was updated during the emergency room initial consultation. He denies any additional trauma. Denies constitutional symptoms. No other pedal complaints at this time. [facility] Medical History Bicuspid aortic valve High blood cholesterol Medical History no medical history Home Medications ?Medication ?Instructions ?Recorded ?Last Taken ?Type multivitamin (Daily Multi-Vitamin 1 tab PO DAILY suppl ement 03/12/25 03/12/25 History tablet) omega 9-sjm-mvs-fish oil 1,200 mg 2 cap PO DAILY suppl ement 03/12/25 03/11/25 History (144 mg-216 mg) capsule (Fish Oil) sumatriptan succinate 50 mg tablet 50 mg PO PRN PRN mi graine headache 03/12/25 Unknown History Allergy/AdvReac Type Severity Reaction Status Date / Time No Known Allergies Allergy Verified 03/12/25 15:38 Family History no significant family his Surgical History no surgical history Social History Smoking Status: Never smoker Physical Exam Narrative Vascular: DP and PT pulses are palpable to the right lower extremity. CFT is brisk to the right hallux and lesser digits. Skin temp great is warm to warm from proximal ankle to distal digits on the right lower extremity. Neurological: Light touch intact. Patient does despond painful stimuli. Dermatological: Large laceration at the plantar aspect of the first metatarsophalangeal joint with sanguinous drainage and exposed first metatarsal head. No malodor is appreciated. Evidence of mild debris is present. Musculoskeletal: Mild to moderate palpatory tenderness appreciated a full- thickness laceration to the right foot. Active and passive range of motion lesser digits pain-free. Attempted to palpate the hallux is painful. No pain with calf pressure. Const alert, oriented x3 and no apparent distress General Appearance: cooperative, comfortable and well kempt Orientation / Consciousness: awake Lab / Micro Data 03/12/25 15:52 03/12/25 15:52 Labs: Laboratory Results - last 24 hr 03/12/25 15:52: WBC 9.8, RBC 4.94, Hgb 15.2, Hct 43.3, MCV 87.7, MCH 30.8, MCHC 35.1, RDW Std Deviation 39.6, RDW Coeff of Dinh 12.4, Plt Count 272, MPV 9.7, Immature Gran % (Auto) 0.200, Neut % (Auto) 40.0 L, Lymph % (Auto) 50.4 H, [place] % (Auto) 7.7, Eos % (Auto) 1.2, Baso % (Auto) 0.5, Absolute Neuts (auto) 3.9, Absolute Lymphs (auto) 4.95 H, Nucleated RBC % 0, Sodium 139, Potassium 3.9, Chloride 101, Carbon Dioxide 19.9 L, Anion Gap 18 H, BUN 16, Creatinine 1.21 H, Estim Creat Clear Calc 108.03, Est GFR (MDRD) Non-Af 83, BUN/Creatinine Ratio 13.6, Glucose 102 H, Calcium 9.8 Imaging Radiology Impression Foot X-Ray 03/12/25 15:42 IMPRESSION: 1. No radiopaque foreign body. 2. Probable comminuted fracture and laceration of the 1st distal phalanx. Softtissue swelling. Reading Location: [facility] 03/12/252 Cosigner Signature (if applicable): CC: Elyse Christie~ Signed [facility]05-17-2025 Procedure note [facility] Medical Records Department [address] [place] [address] Operative Report 03/12/25 1805 MR#: [id number] Acct: [id number] Name: JAKOB MORRELL Rep #:[id number] : 1995 29 From: David Stovall PM PCP: Elyse Christie Status:REG [facility] Location: [facility] Problems Associated Problem List Diagnoses (1) Onycholysis: (2) Fracture of distal phalanx of toe of right foot: (3) Laceration of muscle and tendon of long flexor muscle of toe at ankle and foot level, right foot, initial encounter: (4) Traumatic dislocation of right great toe: (5) Laceration of right foot: Operative Report (Standard) Operative Information Date of Procedure: 03/12/25 Pre-Operative Diagnosis: 1. Open laceration, right foot 2. Lacerated flexor tendon, right foot 3. Onycholysis, right hallux 4. Traumatic dislocation of toe, right foot 5. 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 Morrell is a 29-year-old male who was admitted to [facility] for open laceration secondary to a lawnmower injury today at approximately 3:30 PM in the afternoon on 03/12/2025. When the patient sustained injury he reportedto [facility] for evaluation and treatment. Iwas consulted forconcern of lacerated tendon as well as for the large open laceration exposing the first metatarsal head on the right foot. Upon interviewing the patient there showed evidence of a large traumatic laceration with exposed first metatarsal phalangeal joint as well as debris in the wound. Due to the nature of the wound I educated the patient on washout and pinning as well as amputation. Patient would like to move forward with pinning and trying to save the toe especially because heis concerned how his walking/gait and may be disrupted if he loses the toe. He is aware that even with successful surgery ofgetting the toe back into anatomic position with the joint he still may lose thetoe due to decreased blood flow. All risk and benefits were discussed with the patient and his in great detail. We move forward with the above procedure as discussed. Due to open laceration and dislocation of the first metatarsophalangeal joint the right foot it was deemed necessary at this time totake patient the operating room the performed above procedure to help get his toe back intoanatomic position and pin it and help relieve his constant pain and save his toe. The nature of theproblem, anticipated procedures, postop recovery/convalences and risk/complications include but notlimited to infection, wound healing complications, digital amputation, hypertrophic scarring, numbne ss, tingling, chronic pain, CRPS, over and under correction, recurrence of deformity, DVT and or PEand the need for further surgery have beendiscussed in great detail with the patient. All questionshave been answered tothe patient's satisfaction. There are no guarantees given as to the outcome ofthe procedure. Description of Procedure: Under mild sedation, the patient was brought into the operating room and placed on the operating table in supine position. Once the patient was under general anesthesia with endotracheal tube, the right lower extremity was blocked using approximately 30 cc 0.5% Marcaine plain. No tourniquet was used for this case. Next, the right lower extremity was prepped and draped in normal aseptic manner. Next, a timeout was then undertaken verifying the correct patient, extremity, visibility of preoperative markings, availability of the equipment. Procedure #1: Nail avulsion, right hallux Next attention was directed to the right hallux that showed evidence of subungual hematoma and onycholysis. Using a rongeur the nail avulsion was performed without incident and the nail was discarded. There is evidence of healthy granular tissue to the nailbed with no significant sign of concern for infection. Procedure #2: Repair of lacerated tendon, flexor hallucis longus, right foot Next, attention was directed to the full-thickness laceration exposing the firstmetatarsal head. Using a rongeur excessive debridement down to bone was performed removing all devitalized tissue as well as bone fragments from the traumatic injury with the lawnmower blade. There showed evidence of some bone destruction to the head of the first metatarsal which was dorsally and removed due to viability. Bone fragments from the proximal phalanx were identified and also removed. All debris such as dirt and grass were removed without incident. After debridement was performed there showed healthy granular tissue. Next, pulse lavage and irrigation was performed using warm 3000 mL of saline. After pu lse lavage tissue was granular in nature and there was no concern for infection. Next, attention was directed to the level of the long flexor laceration in the plantar vault of the right foot, inferior aspect of the dislocated hallux. Due to the traumatic injury with a lawnmower there was destruction of the origin of the flexor hallucis longus tendon. The proximal portion of the tendon had retracted but was identified and pulled to length using 2-0 Vicryl suture and secured in place approximately 1 cm from its attachment. Using 2-0 Ethibond the long flexor tendon was sutured to the soft tissue and show to have plantarflexed the attitude once secured in place. The toe was put through a rangeof motion and dorsiflexion and plantarflexion attitude allowed the first metatarsophalangeal joint to remain in neutral at this time. Next, the incision was flushed with cold renata normal saline. Procedure #3: Closed reduction and pinning of dislocated first metatarsophalangeal joint, right foot Next, the right hallux gently distracted and closed reduction with percutaneous pinning using x2 K wires was done without incident. After the K wires were secured across the first metatarsophalangealjoint. The position of the K wireswere checked clinically as well as with mini C-arm fluoroscopy. The long ends were cut bent at 90 degrees and secured with half-inch Steri-Strips to act as a external splint. There was no range of motion ability due to the pinning of theK wires across the big toe joint at this time. Procedure #4: Percutaneous pinning of avulsion fracture, distal phalanx, right hallux Next using a small K wire percutaneous pinning of the avulsion fracture of the distal phalanx was performed using mini C arm fluoroscopy guidance in the AP andlateral view. The K wire was thrown fromproximal medial to distal lateral encompassing the avulsion fracture off the medial side of the distal phalanx. The K wire once out to length was cut and bent at 90 degrees and secured with the 2 additional K wires from the pinning of the first metatarsophalangeal joint. Procedure #5: Advancement flap closure, right foot Next, attention was directed to the laceration flap using some undermining of the proximal and distal tissue this allowed for more advancement flap type closure. The deep layer was reapproximated closed with 3-0 Vicryl in buried suture technique. The skin was reapproximated dorsal and plantarly and advancedclosed, secured in place with 4-0 nylon in simple interrupted suture technique. The right foot was wiped clean and patted dry. There is evidence of capillary refill time less than 3 seconds to the great toe. There was evidence of some delayed cap the refill time to the most plantar distal flap of the hallux. All incisions were dressed with Betadine soaked Adaptic, dry sterile dressing laura very light posterior Wyatt splint was applied to the right lower extremity at 90degrees. The patient tolerated the procedure and anesthesia well and apparent satisfactory condition and wastransported to the PACU for further monitoring prior to admission for observation for postoperativecare and flap integrity forthe next 24 to 48 hours. The patient will be placed on IV antibiotics Ancef andZosyn for the next 48 hours. Vital signs stable and vascular status intact to all digits bilateral. Post Operative Plan: Weightbearing: Nonweightbearing to the right lower extremity with assistive crutches. Full weightbearing left lower extremity. Antibiotics: IV antibiotics, Ancef and Zosyn DVT Prophylaxis: 325 mg aspirin twice daily Sanderson: None Dressing: Betadine soaked Adaptic dry sterile dressing light Wyatt posterior splint, right lower extremity X-Rays: Post-operative films taken on the operating room. Pain Medication: Percocet 5/325, Dilaudid 0.5 mg, Tylenol Follow-up: Patient will be admitted for 48-hour observation after surgery secondary to lawnmower injury. Hospitalist consulted for medical management. Physical therapy consulted for routine care. Patient was taken to the operatingroom and had the above procedure performed. I feel that the procedure was successful and the patient has a good outcome for keeping his right hallux. However it was discussed with the patient and his in the emergency room that it is approximately a 50-50 chance that he may need to move forward with additional surgery if the vascular status of the toe is compromised due to the injury which the patient and his are very understanding. Surgical Findings: 1. Evidence of of debris that was in the open laceration secondary to a lawnmower injury was all removed. 2. Ability to reattach the long flexor tendon to the proximity of insertion. 3. Successful advancement flap closure. 4. Evidence of capillary refill time less than 3 seconds throughout the right hallux Complications Complications: No Admit VTE Documentation VTE Present on Admission: No VTE Mechan Device Prophylaxis: SCD's VTE Pharm Prophylaxis ordered?: Yes 03/12/252141 Cosigner Signature (if applicable): CC: RUBY Javier; Elyse Christie~ Signed [facility]05-17-2025 Consult note [facility] Medical Records Department [address] [place] [address] Anesthesia Postop Eval II 03/12/252102 MR#: [id number] Acct: [id number] Name: JAKOB MORRELL Rep #:[id number] : 1995 29 From: Monroe Mills MD PCP: Elyse Christie Status:REG [facility] Y Race: C Location: [facility] Anesthesia Postop Eval I Sum Postop Eval Completion status Anesthesia document: Postop Eval 1 completed: Yes Anesthesia Postop Eval I Summary Anesthesia Postop Eval I Summary: Anesthesia Postop Eval I: Assessment Summary Airway patent Yes 03/12/25 21:03 Spontaneous unlabored Yes 03/12/25 21:03 respirations Mental status nausea No 03/12/25 21:03 Vomiting No 03/12/25 21:03 Anesthesia Postop Eval I: Fluid Summary Crystalloid volume administer 1,500 03/12/25 21:03 (ml) Colloids volume administered ( ml) Blood Product volume administered (ml) Total IV fluid infused 1,500 03/12/25 21:03 Anesthesia Postop Eval I: Summary Notes Anesthesia Complication No 03/12/25 21:03 Anesthesia Complication Comment: Post-operative progress note Anesthesia: Postop Eval II Evaluation Mental status: Awake Pain Level: 0 nausea: No Vomiting: No 03/12/252103 MD> Date _ Monroe Mills MD Cosigner Signature: CC: ~ Signed [facility]05-17-2025 Consult note [facility] Medical Records Department [address] [place] [address] Anesthesia Postop Eval I 03/12/252101 MR#: [id number] Acct: [id number] Name: PORSCHEJAKOB BRIGETTE Rep #:[id number] : 1995 29 From: Monroe Mills MD PCP: Elyse Christie Status:REG SDC Y Race: C Location: [facility] Anesthesia: Postop Eval I Current Vital Signs Temperature: 97 F Pulse Rate: 112 Blood Pressure: 117/77 Respiratory Rate: 16 Pulse Ox: 96 Assessment Airway patent: Yes Spontaneous unlabored respirations: Yes nausea: No Vomiting: No Anesthesia Complication: No Fluid Hydration Crystalloid volume administer (ml): 1,500 Total IV fluid infused: 1,500 Progress Note Anesthesia document: Postop Eval 1 completed: Yes 03/12/252102 > Date _ Monroe Mills MD [facility] Signature: Date CC: ~ Signed [facility]05-17-2025 Consult note [facility] Medical Records Department [address] [place] [address] Pre-Anesthesia Evaluation 03/12/252020 MR#: [id number] Acct: [id number] Name: JAKOB MORRELL Rep #:[id number] : 1995 29 From: Monroe Mills MD PCP: Elyse Christie Status:REG SD Y Race: C Location: [facility] ASA Classification* ASA Classification ASA Classification: 2 and E Assessment & Plan Anesthesia* Anesthesia Assessment Anesthesia Assessment: Discussed sedation and/or anesthesia options, risks, benefits, and alternatives with patient/parents/legal guardian/POA. Questions invited. The patient/parents/legal guardian/POA seems to understand and agrees to proceedwith anesthesia plan. Reviewed the physical assessment, medical history, allergy history and patient home medications list prior to surgery/procedure/anesthetic and documented any changes. Performed airway and anesthesia risk assessments. Anesthesia Type Anesthesia Type: General (glidescope/rsi) Anesthesia Focused Assessment* Temperature: 97.9 F Pulse Rate: 92 Blood Pressure: 100/85 Respiratory Rate: 14 Pulse Ox: 99 Airway Assessment Mouth opens: >3 cm Mallampati Score: II Focused Labs Anesthesia Preop lab: CBC WBC 9.8 K/mm3 (4.4-11.0) 03/12/25 15:52 03/12/25 RBC 4.94 M/mm3 (4.6-6.2) 03/12/25 15:52 03/12/25 Hgb 15.2 g/dL (13.0-16.5) 03/12/25 15:52 03/12/25 Hct 43.3 % (40-54) 03/12/25 15:52 03/12/25 Plt Count 272 K/mm3 (150-450) 03/12/25 15:52 03/12/25 CHEMISTRY Potassium 3.9 mmol/L (3.3-5.1) 03/12/25 15:52 03/12/25 Sodium 139 mmol/L (133-145) 03/12/25 15:52 03/12/25 BUN 16 mg/dL (4-19) 03/12/25 15:52 03/12/25 Creatinine 1.21 mg/dL (0.70-1.20) H 03/12/25 15:52 Glucose 102 mg/dL (70-99) H 03/12/25 15:52 03/12/25 COAG Pre-Assessment Diagnosis/Proposed Procedure Planned Operative Procedure(s): Repair of laceraTION OF RIGHT GREAT TOE Anesthesia History 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 When Was Last Pacemaker Check QUESTION #4 FULL TEXT: You/Your Family Experience fever (hyperthermia) with Anesthesia Last Oral Intake Last Oral intake: Last Oral Intake NPO since Meds taken in AM with sips of water? Meds patient instructed to take am of surgery PONV PONV - animal physiology teacher: PONV - animal physiology teacher Female HX of Motion Sickness HX of N/V After Surgery Non-Smoker Duration of Surgery greater than 60 minutes Number of Risk Factors PONV Score Height & Weight Height & Weight: Anesthesia: Height & Weight Height 6 ft 03/12/25 15:35 Weight: 97.5 kg 03/12/25 15:38 Body Mass Index (BMI) 29.1 03/12/25 15:38 Respiratory Assessment Respiratory Assessment - animal physiology teacher: Respiratory Tract Infection Hx - animal physiology teacher Hx Respiratory Tract Infection STOP Sleep Apnea STOP Sleep Apnea - animal physiology teacher: STOP Sleep Apnea - animal physiology teacher Hx Hypertension No 08/01/15 14:23 Hx Sleep Apnea CPAP BIPAP Do you snore loudly (louder than talking or can be heard Do you often feel tired/ fatigued/ sleepy during daytime? Has anyone observed you stop breathing during sleep? STOP Results QUESTION #5 FULL TEXT : Do you snore loudly (louder than talking or can be heard through closeddoors)? Tobacco Use History Tobacco Use History - animal physiology teacher: Tobacco Use History - animal physiology teacher Tobacco Use Smoking Status Never smoker 03/12/25 15:52 Hx Tobacco Use Years Smoking Packs Smoked per Day Smoking Cessation Date was within the last 15 years Hx Smoking Cessation Date Hx Smoking Cessation Counseling Hematologic Medial History Hematologic Hx - animal physiology teacher: Hematologic Medical Hx - helper coordinator Hx of Blood Transfusion Hx of Transfusion in last 3 Months Date of Last Transfusion (if within last 3 months) Ever experience any problems with transfusion(s)? Specify any problems Hx of Preganancy in last 3 Months Nurse Filling Out Transfusion & Questions: Date: Time: Patient unable to answer at this time (ie. confused, unrespo /Reproduction History /Reproductive History - animal physiology teacher: /Reproductive Hx- animal physiology teacher Hx Now Gestational Age (in weeks): EDC: Hx Hx Para Hx Section SAB PFSH Medical History Bicuspid aortic valve High blood cholesterol Medical History no medical history Home Medications ?Medication ?Instructions ?Recorded ?Last Taken ?Type multivitamin (Daily Multi-Vitamin 1 tab PO DAILY 03/1203/12/25 History tablet) omega 1-qev-ffh-fish oil 1,200 mg 2 cap PO DAILY 03/1203/11/25 History (144 mg-216 mg) capsule (Fish Oil) sumatriptan succinate 50 mg tablet 50 mg PO PRN PRN mi graine headache 03/12/25 Unknown History Allergy/AdvReac Type Severity Reaction Status Date / Time No Known Allergies Allergy Verified 03/12/25 15:38 Family History no significant family his Surgical History no surgical history Social History Smoking Status: Never smoker Review of Systems (Anesthesia) ROS Narrative System reviewed and no additional complaints, except as documented. 03/12/252022 MD> Date _ Monroe Mills [facility] Signature: Date CC: ~ Signed [facility]05-17-2025 [facility] Medical Records Department [address] [place] [address] Consultation 03/12/25 1805 MR#: [id number] Acct: [id number] Name: JAKOB MORRELL Rep #: [id number] : 1995 29 From: David Javier DPM PCP: Elyse Christie Status:REG [facility] Location: [facility] Assessment Plan Assessment/Plan (1) Laceration of right foot: QUALIFIERS: Encounter type: initial encounter Qualified Code(s): S91.311A - Laceration without foreign body, right foot, initial encounter PLAN: Patient was examined evaluated. All findings were discussed with the patient. All questions were answered to the patient satisfaction. Right foot radiograph: Review of the radiographs show evidence of a dislocated first metatarsal phalangeal joint of the right foot with evidence of some comminution appreciated to the proximal phalanx and distal phalanx. Increase in soft tissue volume without defect. No emphysema appreciated. Long discussion emergency room regarding surgical intervention at this time with repair of the lacerated tendon as well as close reduction and pinning of the dislocated first metatarsal phalangeal joint of the right foot and advancement flap closure. Patient was agreeable and we will move forward with emergency surgery today. All risk and benefits were discussed with the patient and his in great detail. It was also discussed with the patient that he is at risk for a amputation if the skin and underlying soft tissue demarcates and is not viable over the next upcoming days which she was understanding of. After surgery he will be admitted for approximately 48 hours and then discharge and will follow-up in private office for additional surgery as needed. Tetanus status was updated in the emergency room. Medicine: Consult pending Podiatry will follow patient as primary while in house and will discharge in approximately 24 to 48 hours. Please reach out to Dr. Javier with any questions or concerns. (2) Traumatic dislocation of right great toe: QUALIFIERS: Encounter type: initial encounter Qualified Code(s): S93.104A - Unspecified dislocation of right toe(s), initial encounter (3) Laceration of muscle and tendon of long flexor muscle of toe at ankle and foot level, right foot, initial encounter: HPI Consult Data Date of Consult: 03/12/25 HPI Narrative Reason for Consultation: Open laceration, right foot HPI Narrative: JAKOB MORRELL, is a 29 M who presented presented to the [facility] emergency room approximately 2 hours ago with open laceration to the right foot with dislocation of the the first metatarsal phalangeal joint. Patient sustained an injury due to coming in contact with a moving lawnmower. He was cutting his mom's grass and his foot went underneath the lawnmower getting caught on the blade. He was wearing tennis shoes. He is unsure if he slipped or fell and stated that it happened so fast, he then ended up with a laceration presenting to the emergency room for evaluation. Overall the patient is healthy. He does have high cholesterol and a bicuspid aortic valve. His tetanus status was updated during the emergency room initial consultation. He denies any additional trauma. Denies constitutional symptoms. No other pedal complaints at this time. [facility] Medical History Bicuspid aortic valve High blood cholesterol Medical History no medical history Home Medications ???Medication ???Instructions ???Recorded ???Last Taken ???Type multivitamin (Daily Multi-Vitamin 1 tab PO DAILY supplement 5 03/12/25 History tablet) omega 2-fan-jvx-fish oil 1,200 mg 2 cap PO DAILY supplement 5 03/11/25 History (144 mg-216 mg) capsule (Fish Oil) sumatriptan succinate 50 mg tablet 50 mg PO PRN PRN migraine headac he 03/12/25 Unknown History Allergy/AdvReac Type Severity Reaction Status Date / Time No Known Allergies Allergy Verified 03/12/25 15:38 Family History no significant family his Surgical History no surgical history Social History Smoking Status: Never smoker Physical Exam Narrative Vascular: DP and PT pulses are palpable to the right lower extremity. CFT is brisk to the right hallux and lesser digits. Skin temp great is warm to warm from proximal ankle to distal digits on the right lower extremity. Neurological: Light touch intact. Patient does despond painful stimuli. Dermatological: Large laceration at the plantar aspect of the first metatarsophalangeal joint with sanguinous drainage and exposed first metatarsal head. No malodor is appreciated. Evidence of mild debris is present. Musculoskeletal: Mild to moderate palpatory tenderness appreciated a full- thickness laceration to the right foot (more content not included)...[facility] 03-12-2025 Radiology Diagnostic study note [facility] Imaging Services [address] [place] [address] Foot 2 Views MR#: [id number] Acct: [id number] Name: JAKOB MORRELL Rep #: [id number] : 1995 M 29 From: Farzana Barton MD PCP: Dr. Jean Paul Monae MD Status: PRE ER Study:Foot 2 Views Date of Exam: 5 Exam# [id number] Ordering Dr: Olga Reynolds EXAM: XR Right Foot, 2 Views CLINICAL INDICATION: LACERATION TECHNIQUE: Frontal and lateral views of the right foot. COMPARISON: No relevant prior studies available. FINDINGS: BONES/JOINTS: Probable comminuted fracture and laceration of the 1st distal phalanx. Soft tissue swelling. No dislocation. SOFT TISSUES: No radiopaque foreign body. RAD/Foot 2 Views IMPRESSION: 1. No radiopaque foreign body. 2. Probable comminuted fracture and laceration of the 1st distal phalanx. Softtissue swelling. Reading Location: [facility] CC: Dr. Jean Paul Monae MD; DIANA Nieto ~ Boat Carpenter Mechanic: [facility]igned [facility] Author David Javier [facility] Note Date/Time March 15, 2025 8:31a [facility] Medical Records Department [address] [place] [id number] Discharge Summary 03/15/25 0815 MR#: [id number] Acct: [id number] Name: JAKOB MORRELL Rep #:[id number] : 1995 29 From: David Stovall PM PCP: Elyse Christie Status:ADM IN Location: [place] [address] Providers Date of Admission: 03/13/25 Date of Discharge: 03/30/25 Primary Care Physician: Elyse Christie Consultations 03/12/25 21:09 Consult: Hospitalist Routine Consulting Provider: Edward Saldivar Reason for Consult: Post op eval EMERGENT Consult: No MD Notified: Yes Date Notified: 03/12/25 Time Notified: 22:01 Method of Notification: Text Reason For Visit: LACERATION RIGHT FOOT Diagnosis Discharge Diagnosis (1) Laceration of right foot: Status: Acute Code(s): S91.311A - Laceration without foreign body, right foot, initial encounter Qualifiers: Encounter type: initial encounter Qualified Code(s): S91.311A - Laceration without foreign body, right foot, initial encounter (2) Traumatic dislocation of right great toe: Status: Acute Code(s): S93.104A - Unspecified dislocation of right toe(s), initial encounter Qualifiers: Encounter type: initial encounter Qualified Code(s): S93.104A - Unspecified dislocation of right toe(s), initial encounter (3) Laceration of muscle and tendon of long flexor muscle of toe at ankle and foot level, right foot, initial encounter: Status: Acute Code(s): S96.021A - Laceration of muscle and tendon of long flexor muscle of toe at ankleand foot level, right foot, initial encounter (4) Onycholysis: Status: Acute Code(s): L60.1 - Onycholysis (5) Fracture of distal phalanx of toe of right foot: Status: Acute Code(s): S92.911A - Unspecified fracture of right toe(s), initial encounter for closed fracture Medications at Discharge Home Medications multivitamin (Daily Multi-Vitamin tablet) 1 tab PO DAILY supplement 03/12/25 omega 8-quo-blf-fish oil 1,200 mg (144 mg-216 mg) capsule (Fish Oil) 2 cap PO DAILY supplement 03/12/25 sumatriptan succinate 50 mg tablet 50 mg PO PRN PRN migraine headache 03/12/25 amoxicillin 875 mg-potassium clavulanate 125 mg tablet 1 tab PO BID 2 weeks #28 tabs 03/14/25 ascorbic acid (vitamin C) 1,000 mg tablet (Vitamin C) 1 g PO DAILY 90 days #90 tabs 03/14/25 aspirin 325 mg tablet 325 mg PO BID 30 days #60 tabs 03/14/25 calcium 500 mg (as carbonate)-vitamin D3 15 mcg (600 unit) tablet (Os-Willy 500 + D3) 1 tab PO DAILY 90 days #90 tabs 03/14/25 ciprofloxacin HCl 750 mg tablet 750 mg PO BID 2 weeks #28 tabs 03/14/25 cyclobenzaprine 10 mg tablet 10 mg PO TID muscle spasm 7 days #21 tabs 03/14/25 docusate sodium 100 mg capsule (Colace) 100 mg PO DAILY 10 days #10 caps 03/14/25 oxycodone-acetaminophen 5 mg-325 mg tablet (Endocet) 1 tab PO Q6H 7 days #28 tabs 03/14/25 Physical Exam Narrative Vascular: DP and PT pulses are palpable to left lower extremity. CFT is brisk to the right foot and right hallux. There is evidence of delayed CFT to the plantar flap of the right hallux. Nonpitting edema appreciated to the right foot. Evidence of ecchymosis appreciated to the right foot. Skin temperature great is warm to warm from proximal ankles to distal digit to right lower extremity. Neurological: Light touch is intact. Patient does respond to painful stimuli. Dermatological: All skin is well coapted with suture to the right hallux via advancement flap. There is evidence of ecchymosis to the hallux and the right foot. Slight duskiness appreciated to the plantar flap of the hallux right foot. Sanguinous drainage is appreciated out of the nail bed with a granular nail bed noted. No sign of infection. Musculoskeletal: Muscle strength was deferred. Mild pain on palpation to the incision on the right hallux and right foot. No pain with calf compression. Const alert, oriented x3 and no apparent distress General Appearance: cooperative and comfortable Orientation / Consciousness: awake Exam Limitations: no limitations Weight / BMI Weight Weight: 97.5 kg Body Mass Index (BMI) 29.1 ABG / Lab / Microbiology Data 03/14/25 04:25 03/14/25 04:25 Laboratory: Laboratory Results - last 24 hr 03/13/25 13:05: Hemoglobin A1c 5.4 03/14/25 : Hemoglobin A1c Cancelled Radiography Diagnostic Testing: Radiology Impression Foot X-Ray 03/12/25 15:42 IMPRESSION: 1. No radiopaque foreign body. 2. Probable comminuted fracture and laceration of the 1st distal phalanx. Softtissue swelling. Reading Location: [facility] D/C Instructions Discharge Diet: No restrictions Discharge Activity: May Not Drive and Use Crutches May resume sexual activity in: No Restrictions Ice area for (Minutes): 20 Weight Bearing Status: No weight bearing Lifting Restricted to (Lbs): 15 Keep extremity elevated above heart level: Right Leg Call your doctor if your incision/area has: Continuous Slow Oozing, Sudden Increased Bleeding, Increased Pain/ Swelling, Increased Redness, Foul Smelling Discharge and Swelling at the incision site Call your doctor if you observe: Fever of 101 or Higher Suture Line Care: Avoid Pulling/Pushing and Avoid Pinching/Bending Change Dressing in: leave in place till F/U Remove Dressing in: leave in place till F/U DC O2, CPAP, BIPAP Needs Home O2 Discharge instructions: No DC home with Oxygen: No Additional Instructions: Patient will follow-up in private office with Dr. Javier for further evaluation dressing changes to right lower extremity. Please keep postoperative dressing clean dry and intact and do not remove please Please Follow Up With: David Javier DPM When: , 03/17/25 at 8:30am Meaningful Use Info Meaningful Use Meaningful Use Diagnoses (Choose all that apply): None applicable Ischemic Stroke Statin Dosing Therapy Reference: STATIN DOSE THERAPY REFERENCE: * Patients > 75 years receive moderate or high dose statin therapy. * Patients 75 years or YOUNGER should receive HIGH intensity statin dose unless contraindicated. You will be required to document reason for non-treatment if statin daily dose does not meet guidelines. HIGH DOSE STATIN THERAPY DAILY Atorvastatin > than or = to 40 mg Rosuvastatin > than or = to 20 mg Amlodipine + Atorvastatin > than or = to 2.5/40 mg Ezetimibe + Simvastatin 10/80 mg Simvastatin 80mg Discharge Plan Admission Admit Date/Time: 03/13/25 14:18 Primary Reason for Your Visit: Right foot emergent surgery Attending Provider: David Javier Primary Care Provider: Elyse Christie Consulting Providers: Gabriel Castano Instructions Additional Instructions / Restrictions: 1. Please keep your surgical dressing clean dry and intact. Do not remove. Donot get it wet. 2. Continue rest, ice (behind your operative knee) and elevate per your postoperative instructions that were given to you at the day of your surgical consultation while in office. 3. Patient will be nonweightbearing to the right lower extremity with posteriorsplint and crutches. Full weightbearing left lower extremity. 4. Please take all pain medication and prescriptions as written. 5. If you are a diabetic patient please continue tight glucose control while inthe postoperative phase. 6. Please continue to follow-up with all your doctors visits prior and after surgery. 7. Please reach out to Dr. Javier, through the paging system in the hospital or private office with any questions or concerns. 8. Thank you for letting me be involved in your surgical care! Discharge Orders/Prescriptions Prescriptions: New oxycodone-acetaminophen [Endocet] 5-325 mg tablet 1 tab PO Q6H 7 Days Qty: 28 0RF aspirin 325 mg tablet 325 mg PO BID 30 Days Qty: 60 0RF ciprofloxacin HCl 750 mg tablet 750 mg PO BID 14 Days Qty: 28 0RF docusate sodium [Colace] 100 mg capsule 100 mg PO DAILY 10 Days Qty: 10 0RF cyclobenzaprine 10 mg tablet 10 mg PO TID 7 Days Qty: 21 0RF calcium carbonate-vitamin D3 [Os-Willy 500 + D3] 500 mg-15 mcg (600 unit) tablet 1 tab PO DAILY 90 Days Qty: 90 0RF ascorbic acid (vitamin C) [Vitamin C] 1,000 mg tablet 1 g PO DAILY 90 Days Qty: 90 0RF amoxicillin-pot clavulanate 875-125 mg tablet 1 tab PO BID 14 Days Qty: 28 0RF No Action sumatriptan succinate 50 mg tablet 50 mg PO PRN PRN (Reason: migraine headache) multivitamin [Daily Multi-Vitamin] Tablet 1 tab PO DAILY omega 4-qgq-zmy-fish oil [Fish Oil] 1,200 (144-216) mg capsule 2 cap PO DAILY Referrals / Follow Up: Jean Paul Monae MD [Med Staff - Telegraph Inspector] - David Javier DPM [Med Staff - Active Staff] - See Referral Note (Follow in the AM. 03/17/25) Disposition Disposition (needs filled in before D/C Order can be placed): Home, Self Care 03/15/25 0831 <Electronically signed by David Javier DPM> Cosigner Signature (if applicable): CC: RUBY Javier; Elyse Christie~ Signed [facility] Work Phone: Evaluation noteNo assessment information available [facility] Work Phone: Hospital Discharge instructions Additional Instructions 1. Please keep your surgical dressing clean dry and intact. Do not remove. Do not get it wet. 2. Continue rest, ice (behind your operative knee) and elevate per your postoperative instructions that were given to you at the day of your surgical consultation while in office. 3. Patient will be nonweightbearing to the right lower extremity with posterior splint and crutches. Full weightbearing left lower extremity. 4. Please take all pain medication and prescriptions as written. 5. If you are a diabetic patient please continue tight glucose control while in the postoperative phase. 6. Please continue to follow-up with all your doctors visits prior and after surgery. 7. Please reach out to Dr. Javier, through the paging system in the hospital or private office with any questions or concerns. 8. Thank you for letting me be involved in your surgical care! Date [facility]: [facility] Phone: Reason for referral (narrative)No reason for referral information availableWSelect [facility] Work Phone: Summary Purpose Family History No Family History Records FoundNo Family History Records FoundNo Family History Records Found Advance Directives No Advanced Directives Records Found Advance Directive Response Recorded Date/ Time Do you have a Healthcare Power of Geologic Technician? No March 12, 2025 3:52pm Advance Directive Response Recorded Date/ Time Do you have a Healthcare Power of Geologic Technician? No March 12, 2025 10:02pm Chief Complaint and Reason for Visit Chief Complaint Admit Date LACERATION March 12, 2025 3:34p m Chief Complaint Admit Date LACERATION RIGHT FOOT March 12, 2025 10: 40pm LACERATION RIGHT FOOT March 13, 2025 2:1 8pm Reason for Visit Admit Date Fracture of distal phalanx of toe of rig ht foot March 13, 2025 2:18pm Laceration of muscle and ten don of long flexor muscle of toe at ankle and f March 13, 2025 2:18pm Laceration of right foot March 13, 2025 2:18pm Onycholysis March 13, 2025 2:18p m Traumatic dislocation of right great toe March 13, 2025 2:18pm Additional Source Comments (unrecognized sect ion and content) No Status Records FoundNo Status Records FoundNo Status Records Found INFORMATION SOURCE (unrecogn ized section and content) DATE CREATED AUTHOR 04/22/2018 [facility] DATE CREATED AUTHOR AUTHOR'S ORGANIZ ATION 09/24/2023 [facility] ([place]) DATE CREATED AUTHOR AUTHOR'S ORGANIZ ATION 03/27/2025 [facility] Care Teams (unrecognized sec tion and content) Team Status: Active Member Role Status Dates Elyse Christie Primary Care Provider Active Team Status: Active Member Role Status Dates Dr. Monroe Polk DO Emergency Provider Active Start: March 12, 2025 Pratik Aponte Primary Care Provider Active Start: March 12, 2025 Dr. David Javier DPM Admit Provider Active St art: March 12, 2025 Dr. David Javier DPM Other Provider Active St art: March 12, 2025 Dr. Edward Saldivar MD Attending Provider Active Start: March 12, 2025 Dr. Edward Saldivar MD Other Provider Active St art: March 12, 2025 Team Status: Inactive Member Role Status Dates Dr. Monroe Polk DO Emergency Provider Active Start: March 13, 2025 End: March 15, 2025 Pratik Aponte Primary Care Provider Active Start: March 13, 2025 End: March 15, 2025 Dr. David Javier DPM Admit Provider Active St art: March 13, 2025 End: March 15, 2025 Dr. David Javier DPM Attending Provider Active Start: March 13, 2025 End: March 15, 2025 Dr. Gabriel Castano MD Other Provider Active Start: March 13, 2025 End: March 15, 2025 Team Status: Inactive Member Role Status Dates Dr. Monroe Polk DO Emergency Provider Active Start: March 12, 2025 End: March 12, 2025 Da Apontedejah Primary Care Provider Active Start: March 12, 2025 End: March 12, 2025 Goals (unrecognized section and content) Goals may be documented in a n alternate section FOR RECORDS PERTAINING TO PATIENTS WHO ARE OR HAVE BEEN ENROLLED IN A CHEMICAL DEPENDENCY/SUBSTANCEABUSE PROGRAM, SOME INFORMATION MAY BE OMITTED. This clinical summary was aggregated from multiple sources. Caution should be exercised in using it in the provision of clinical care. This summary normalizes information from multiple sources, and as a consequence, information in this document may materially change the coding, format and clinical context of patient data. In addition, data may be omitted in some cases. CLINICAL DECISIONS SHOULD BE BASED ON THE PRIMARY CLINICAL RECORDS. [facility] [employer] provides no warranty or guarantee of the accuracy or completeness of information in this document.
== END | disposition home or self-care (01) ==
LOC: LABSPEC 16:36
PROVIDERS: Visit Provider Podiatrist Foot & Ankle Surgery
DX: S91.101A Unspecified open wound of right great toe without damage to nail, initial encounter (principal); X58.XXXA Exposure to other specified factors, initial encounter
CPT/HCPCS: 87070; 87077; 87186; 87205

== ENCOUNTER 2025-05-31 13:43 | Day surgery (SDC) | payer BC, SELFPAY ==
[2025-05-31] VITALS (8 sets, daily range): BP systolic 108–137; BP diastolic 76–91; PULSE 81–92; RESP 16; TEMP 36.2–36.6; O2SAT 97–100; BMI 29.1
[2025-05-31] MEDS: Lactated Ringers 1,000 ML 15 ML IV (14:06)
[2025-05-31] MEDS: Cefazolin 1 GM/5 ML Vial 2 GM IV (15:56)
[2025-05-31] MEDS: Midazolam 2 MG/2 ML Syringe IV (15:56)
[2025-05-31] MEDS: fentaNYL 100 MCG/2 ML Ampul IV (16:00)
== END 2025-05-31 17:50 | disposition home or self-care (01) ==
LOC: SDC 13:43 → AC 13:44
PROVIDERS: Referring Provider Podiatrist Foot & Ankle Surgery; Visit Provider Podiatrist Foot & Ankle Surgery
PROC: (CPT 15275; principal; 2025-05-31 15:00)
DX: L97.513 Non-pressure chronic ulcer of other part of right foot with necrosis of muscle (principal); S96.0 Injury of muscle and tendon of long flexor muscle of toe at ankle and foot level; V00-Y99 External causes of morbidity; M20.21 Hallux rigidus, right foot; Q23.81 Bicuspid aortic valve; E78.00 Pure hypercholesterolemia, unspecified; Z79.82 Long term (current) use of aspirin; Z79.899 Other long term (current) drug therapy
CPT/HCPCS: 15275; 15004; 00400; 87070; 87075; 87077; 87102; 87186; 87205; 87206; 88305; 88311; J2405